=== PATIENT | female | born 1965 | race Caucasian/White ===

== ENCOUNTER → 2018-01-31 17:35 | Outpatient (CLI) | payer OTHER, SELFPAY ==
--- NOTE | 2018-01-31 18:15 | MRI_ITS ---
STUDY: MRI RIGHT ANKLE WITHOUT CONTRAST REASON FOR EXAM: Female, 52 years old. 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 TECHNIQUE: Standardized fat and water weighted pulse sequences were obtained in all 3 orthogonal planes. COMPARISON: None. FINDINGS: There is soft tissue edema visible within the lateral and medial ankle. Normal posterior tibialis tendon. Normal flexor digitorum longus tendon. Normal flexor hallucis longus tendon. Normal peroneus longus and brevis tendons. Normal tibialis anterior tendon. Normal extensor hallucis longus tendon. There is tenosynovitis of the extensor digitorum longus tendons. There is abnormal signal surrounding the extensor digitorum longus tendons suggesting tenosynovitis. Normal Achilles tendon and teno-osseous insertion. Normal plantar fascia. Normal plantar calcaneal tubercles. Normal intrinsic muscles of the rearfoot. Normal distal tibiofibular syndesmotic ligamentous complex. Normal lateral ligamentous complex. Normal subtalar ligaments and sinus tarsi. Normal deltoid ligamentous complexes. Normal tibiotalar articulation. Normal talar dome. Normal subtalar articulations. Normal talonavicular articulation. Normal calcaneocuboid articulation. Normal navicular-cuneiform articulations. MRI/Lower Ext Joint Only (Routine) IMPRESSION: 1. Tenosynovitis of the extensor digitorum lung is tendons. 2. Soft tissue edema. Electronically Signed: Raven Chavez MD at 13:29 EDT , Service support ,
== END ==
PROVIDERS: Family Provider Family Medicine; PCP Family Medicine; Visit Provider Podiatrist
DX: M65.871 Other synovitis and tenosynovitis, right ankle and foot (principal); M76.821 Posterior tibial tendinitis, right leg; G57.01 Lesion of sciatic nerve, right lower limb
CPT/HCPCS: 73721

== ENCOUNTER → 2018-03-25 09:38 | Outpatient (CLI) | payer OTHER, SELFPAY ==
[2018-03-25 11:17] LABS: T4 Total, Thyroxin 8.1 ug/dL (4.8-13.9); Thyroid Stim Hormone (TSH) 2.36 uIU/mL (0.358-3.74)
== END ==
PROVIDERS: Family Provider Family Medicine; PCP Family Medicine; Visit Provider Family Medicine
DX: E03.9 Hypothyroidism, unspecified (principal)
CPT/HCPCS: 36415; 84436; 84443

== ENCOUNTER → 2018-06-22 16:42 | Outpatient (CLI) | payer OTHER, SELFPAY ==
[2018-06-22 17:25] LABS: Absolute Lymphocyte Count 1.76 X10^3/ul (0.83-4.51); Absolute Neutrophil Count 5.3 X10^3/uL (2.0-7.7); Basophil# 0.02 X10^3/uL; Basophil% 0.3 % (0-1); Eosinophil# 0.14 X10^3/uL; Eosinophils% 1.8 % (0-5); Hematocrit 37.8 % (37-47); Hemoglobin 12.5 g/dl (12.0-15.0); Lymphocyte # 1.76 X10^3/ul (4.0); Lymphocyte % 22.1 % (19-41); Mean Corp Hgb Conc 33.1 g/gl (32-36); Mean Corpuscular Volume 90.9 fL (81-99); Mean Platelet Vol. 10.5 fl (6.2-12.0); Monocyte# 0.75 X10^3/uL; Monocyte% 9.4 % (0-10); Neutrophil # 5.28 X10^3/uL (2.7-7.7); Neutrophil % 66.3 % (47-70); Platelet Count 254 K/mm3 (150-450); RBC Distribution Width SD 42.5 fl (35.1-43.9); Red Blood Count 4.16 M/mm3 (4.2-5.4)
[2018-06-22 17:31] LABS: POSITIVE COUNT NO; POSITIVE DIFFERENTIAL NO; POSITIVE MORPHOLOGY NO
[2018-06-22 18:03] LABS: ALB/GLOB Ratio 1.1 RATIO (0.9-2.4); AST(SGOT) 17 U/L (15-37); Alanine Aminotransfer ALT/SGPT 27 U/L (13-56); Alkaline Phosphatase 84 U/L (45-117); Anion Gap 9 (5-15); BUN 19 mg/dL (7-18); Calcium,Total 9.4 mg/dL (8.5-10.1); Chloride 105 mmol/L (98-107); EST Glomerular Filtration Rate 61 mL/min (>60); Est Glom Filt Rate - Afr Amer 74 mL/min (>60); Globulin 3.6 g/dL (2.2-4.2); Glucose 139 mg/dL (74-106); Potassium 3.7 mmol/L (3.5-5.1); Protein, Total 7.6 g/dL (6.4-8.2); Sodium Level 140 mmol/L (136-145)
== END ==
PROVIDERS: Family Provider Family Medicine; PCP Family Medicine; Visit Provider Family Medicine
DX: Z01.818 Encounter for other preprocedural examination (principal)
CPT/HCPCS: 36415; 80053; 85025

== ENCOUNTER 2018-07-07 05:35 | Day surgery (SDC) | payer OTHER, SELFPAY ==
[2018-07-07] VITALS (7 sets, daily range): BP systolic 130–139; BP diastolic 60–96; PULSE 57–77; RESP 14–16; TEMP 35.8–36.3; O2SAT 92–98; BMI 30.4
--- NOTE | 2018-07-07 07:30 | CYST_PTH ---
PATIENT: RISHI TREJO [place] [facility] [id number] AGE/SX: 52/F ROOM: RE07/07/[address]: Dr. Cabrera Hassan DPM : 1965 BED: DIS: 07/07/2018 SPEC #: [id number] RECD: 07/07/18 10:20 STATUS: LUDA KALPANA #: [id number] JOANNA: 07/07/18 07:[address]: Cabrera Hassan DEPT: SURGICAL PATHOLOGY RECD BY: Gary Haque ENTERED: 07/07/18 11:29 SP TYPE: Cyst OTHR DR: Dr. Yoel Herring MD Tissues: CYST Procedures: Surgery Specimen Level III HEADER OPERATION: Debridement, repair, extensor tendons with excision mass/cyst PRE-OP DIAGNOSIS: Right foot ? extensor tendonitis with soft tissue mass, gastrocsoleus equinus TISSUE SUBMITTED: Right ankle cyst MICROSCOPIC DIAGNOSIS Right ankle cyst: Benign cyst, consistent with ganglion cyst. Mature adipose tissue, consistent with lipoma. NABIL:diomedes 07/10/18 COMMENT The fragments of skeletal muscle tissue are also noted in the specimen. MICROSCOPIC DESCRIPTION Slides are reviewed. GROSS DESCRIPTION Received in fixative is one container labeled with the patient's name and designated right ankle cyst. The specimen consists of multiple irregular fragments of rubalcava-pink soft tissue that in aggregate measure 4 x 4 x 1.2 cm. Also present in the specimen container is dark rubalcava soft tissue resembling muscle and measuring 2 x 1.5 x 0.7 cm. Heater Operator Helper sections are submitted in two cassettes. / AM:diomedes 07/07/18 TC:5 CPT: 29486
[2018-07-07] MEDS: Cefazolin 2 GM in 0.9% Normal Saline 100 ML IV (07:37)
[2018-07-07] MEDS: Bupivacaine 0.5% PF 10 ML VIAL (09:08)
--- NOTE | 2018-07-07 09:28 | PCM.DC.POD ---
Discharge Diet: Light diet - advance as tolerated Discharge Activity: May Not Drive Weight Bearing Status: No weight bearing - No weightbearing right foot Keep extremity elevated above heart level: Right Leg - Keep right foot elevated for at least 50 minutes of every hour Call your doctor if your incision/area has: Continuous Slow Oozing, Sudden Increased Bleeding, Foul Smelling Discharge Call your doctor if you observe: Fever of 101 or Higher, Coldness, Increased Pain, Shortness of breath, Chest pain, Increased palpitations (irregular heartbeat), Calf discomfort, Uncontrolled pain Cleanse incision/area with: Do not get Incision Wet, Keep Dressing Clean & Dry Allergies/Adverse Reactions: Allergies hydroxychloroquine sulfate [From Plaquenil] Allergy (Verified 07/07/18 05:50) Rash pregabalin [From Lyrica] Adverse Reaction (Verified 07/07/18 05:50) Nausea/Vom/Diarrhea tramadol HCl [From Ultram] Adverse Reaction (Verified 07/07/18 05:50) Nausea/Vom/Diarrhea Medications to take at Discharge Levothyroxine [Synthroid] 88 mcg PO DAILY 07/04/14 Rivaroxaban [Xarelto] 10 mg PO DAILY #7 tab 07/07/18 The following prescriptions were given: Rivaroxaban [Xarelto] 10 mg PO DAILY #7 tab Primary Care Physician: Yoel Herring MD [Primary Care Provider] - Test Results: Test results from this visit will be discussed in further detail at your follow-up appointment, if applicable. Please Follow Up With: Cabrera Hassan DPM When: within 1 week, sooner if needed
--- NOTE | 2018-07-07 09:33 | OP.PCM_ITS ---
Report of Operation Date of Procedure: 07/07/18 Pre-Operative Diagnosis: Extensor tendinitis w/ cyst/mass, gastrocsoleus equinus right foot/ankle Post-Operative Diagnosis: Same Surgery/Procedure Performed:: Debridement/repair of extensor tendons with excision of mass/cyst; gastrocsoleus recession right foot/ankle Description of Surgical Findings:: Extensor Digitorum Longus tendinosynovitis w/ soft tissue cyst/mass right foot/ ankle, gastrocsoleus equinus, right foot/ankle informatics application analyst: yes - Dr. Jamie Nur Type of Anesthesia:: General Specimen's removed: Excised cyst/mass from right foot/ankle sent to pathology Estimated Blood Loss (mL): 10mL Description of Procedure: Indications: This is a 52 year old female who has continued right foot/ankle pain despite immobilization, foot orthotics, rest, activity modifications, icing , anti-inflammatories, and corticosteroid injection. Pre operative MRI showed significant extensor digitorum longus tenosynovitis and possible ganglion cyst/ mass, she also has significant gastrocsoleus equinus right foot/ankle. She has elected to undergo surgical intervention as noted above. The procedures were reviewed with her, reviewed the rationale of the procedures as well as the possible benefits, risks, goals, expectations, alternative options, and typical healing/post operative recovery course. This was discussed with her in detail, she expressed understanding and agreement, she elected to proceed forward. All of her questions were answered. The consent forms were reviewed with her, and she freely signed them. No guarantees were given nor implied. Operative Procedure: The patient was brought back into the operating room. The patient was placed on the operating table in the supine position. Patient was carefully secured to the operating room table with a safety belt around her waist. A time out was performed and the patient was properly identified and the surgical plan was confirmed. The patient received general anesthesia per the anesthesia team. The patient received 2 grams of intervenous Cefazolin for antibiotic prophylaxis. A well padded pneumatic tourniquet was applied around the patient's right thigh. The right lower extremity was scrubbed, prepped, and draped in the usual aseptic fashion. Attention was directed to the right foot and ankle. There was noted to be gastrocsoleus equinus with -1 degrees of ankle dorsiflexion with the knee extended and <10 degrees of ankle dorsiflexion with the knee flexed. Attention was directed just distal to the medial head of the gastrocnemius muscle belly on the posterior leg. An ~1cm linear skin incision was made using a 15 blade at this level at the medial aspect. Careful blunt dissection was completed down to the gastrocsoleus aponeurosis. A fascial elevator was used and a plane was complete between the subcutaneous tissue and the posterior aspect of the gastrocsoleus aponeurosis, and an ~1cm linear skin incision was made using a 15 blade at the lateral aspect of the leg to create the lateral portal. The fascial elevator was removed. An obturator and slotted cannula were placed through the medial and lateral portals. The obturator was removed and the slot was faced posteriorly. The sural nerve and the small saphenous vein were visualized confirming they were out of the way. The slot was rotated to face anteriorly and the gastrocsoleus aponeurosis was visualized. Using a hook blade the gastrocsoleus aponeurosis was released, being sure not to cut into the soleus muscle belly. The underlying soleus muscle belly was visualized. There was now noted to be +10 degrees of ankle dorsiflexion with knee extended, and greater with the knee flexed. The obturator was placed in the cannula, and they were both removed. The site was flushed out with copious amounts of normal saline solution. The skin was reapproximated using 4-0 Monocryl. Attention was directed to the anterior lateral foot/ankle. A skin incision was made using a 15 scalpel blade over the lateral aspect of extensor digitorum longus tendons. Careful dissection was completed down to the subcutaneous tissue layer to the extensor retinaculum. The extensor retinaculum was incised and reflected. There was noted to be a fluid filled cyst within the sheath of the extensor digitorum longus tendons consistent with a ganglion cyst. The cyst was protruding right up against the superficial peroneal nerve and deep peroneal nerve. The sheath of the extensor digitorum longus tendons was incised and the ganglion cyst was carefully dissected free and was removed. The superficial and deep peroneal nerves were carefully protected and out of the way , they appeared to be healthy and viable. There was noted to be clear gel synovial fluid within the cyst. The excised cyst was sent to pathology for further evaluation. There was also noted to be significant fatty tissue around the extensor digitorum longus tendons and extending laterally to the area of the sinus tarsi. This fatty tissue was also debrided and sent to pathology. The remaining tissues appeared to be healthy and viable. The extensor digitorum longus tendons otherwise were healthy and intact, no with tear noted. The site was flushed out with copious amounts of normal saline solution. The pneumatic tourniquet was deflated and there was immediate return of warm and perfusion to the left lower extremity, with normal CFT to all of the toe and normal temperature present. Total tourniquet time was 46 minutes. Hemostasis was achieved. The extensor retinaculum was reapproximated using 4-0 Vicryl. The subcutaneous tissue was reapproximated using 4-0 Vicryl. The skin was reapproximated using 4-0 Monocryl. A dressing was applied which consisted of Betadine soaked adaptic, 4x4 gauze, kerlix, christiano bandage and a well padded below the knee posterior splint with the foot and ankle in neutral position. The patient tolerated the above procedure well and the anesthesia well with no complications. She was transported from the operating room to the recovery room with vital signs stable and in good condition. Post operative orders were placed. Post operative instructions were given both verbal and written to patient as well as with her who was with her today. No weightbearing right foot, keep right foot elevated for at least 50 minutes of every hour. Keep dressing/splint clean, dry and intact. Vicodin 5/300mg tab 1-2 tabs PO q 6 hours for post operative pain control, as well as Xarelto 10mg PO once a day to help prevent a blood clot was prescribed. Patient to follow up with me in 1 week , sooner if needed. Grafts/Implants Used: None - Complications None
[2018-07-07] MEDS: HYDROcodone Bitartrate/Apap 5/325 Tablet PO (10:35)
== END 2018-07-07 12:45 | disposition home or self-care (01) ==
LOC: SDC 05:36 → AC 05:37
PROVIDERS: Family Provider Family Medicine; PCP Family Medicine; Visit Provider Podiatrist
PROC: (CPT 28805; principal; 2018-07-07 07:15)
DX: M67.471 Ganglion, right ankle and foot (principal); D17.23 Benign lipomatous neoplasm of skin and subcutaneous tissue of right leg; M76.821 Posterior tibial tendinitis, right leg; M24.571 Contracture, right ankle; E03.9 Hypothyroidism, unspecified; E66.9 Obesity, unspecified; Z68.29 Body mass index [BMI] 29.0-29.9, adult; Z79.899 Other long term (current) drug therapy
CPT/HCPCS: 27630; 27665; 27687; 88304; J7120; J2405

== ENCOUNTER → 2018-09-01 07:57 | Outpatient (CLI) | payer OTHER, SELFPAY ==
--- NOTE | 2018-09-01 08:02 | VDLE_ITS ---
Reason For Study: Insufficiency RIGHT LEFT GSV is normal. CFV is compressible, spontaneous, phasic, CFV is compressible, spontaneous, phasic, competent, and demonstrates normal competent and demonstrates normal augmentation. augmentation. FV is compressible, spontaneous, phasic, FV is compressible, spontaneous, phasic, competent and demonstrates normal competent and demonstrates normal augmentation. augmentation. POP V is compressible, spontaneous, phasic, POP V is compressible, spontaneous, phasic, competent and demonstrates normal competent and demonstrates normal augmentation. augmentation. T/P Trunk is compressible. T/P Trunk is compressible. PTV is compressible. PTV is compressible. LT PerV is compressible. RT PerV is compressible. Lt SFJ is Competent Rt SFJ is Competent Lt GSV is Incompetent with reflux greater Rt GSV is Competent than 0.5 sec and a diameter of 0.34cm x 0.40cm in the thigh and 0.15cm x 0.14cm in Rt SSV is Competent. the calf Procedure Exam performed in department. Lt SSV is Competent. A preliminary report was called and/or faxed to Dr. Hassan. Interpretation Summary Deep veins of the lower extremities are bilaterally patent and compressible segmentally. There is no evidence of deep vein thrombosis on either side. Valvular competence appears intact within the proximal deep venous systems bilaterally. The greater saphenous veins appear bilaterally patent and compressible segmentally. Sapheno-femoral junctions are bilaterally competent . The right greater saphenous vein appears segmentally competent. The left greater saphenous vein appears segmentally incompetent. Small saphenous veins are patent and competent bilaterally. Ordering Physician: Cabrera Hassan Referring Physician: Yoel Herring Performed By: Ruth Cunningham, YAWCS, RVT
== END ==
PROVIDERS: Family Provider Family Medicine; PCP Family Medicine; Referring Provider Podiatrist; Visit Provider Podiatrist
DX: I82.401 Acute embolism and thrombosis of unspecified deep veins of right lower extremity (principal); I87.2 Venous insufficiency (chronic) (peripheral)
CPT/HCPCS: 93970

== ENCOUNTER 2018-09-26 10:00 | Outpatient (RCR) | payer OTHER, SELFPAY ==
--- NOTE | 2018-08-10 16:13 | HP.PTEVAL_ITS ---
Patient's Visit Information RISHI TREJO is a 52 year old F referred to Physical Therapy by Cabrera Hassan with a diagnosis of Right s/p gastrocsoleus recession. Date of Evaluation: 08/02/18 Physical Therapist: Cam Wade - Visit Plan Frequency: 2x /Week Duration: 4-6 Weeks Plan: Cont w POC, add in standing balance and LE strengthening ex. - Subjective Subjective: Pt reports to physical therapy following right gastrocsoleus recession (surgery date: 07/07/18) with orders to improve balance/coordination, ROM, and strength/stabilization. Prior to surgery pt reports injuring ankle while camping over a year ago. pt was walking in a stream and recalled hearing a pop and noticing slight discomfort. pain progressed until pt decided to follow up with a physician where she received an MRI indicating need fro a gastrocsoleus recession, debridment of extensor tendons with removal of cyst. Following surgery pt progresses through weight bearing precautions and reported to physical therapy on this date full weight bearing in tennis shoes. pt reports no pain. only complaint was slight numbness and tingling along 5th ray. 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 Pt. is hopeful to reduce symptoms and get back to all recreational and work activities without limitations. - Pain right ankle Pain Intensity (Out of 10): 0 Pain Intensity Range: Unrated Comment: swollen - Objective POSTURE: Pt. has normal posture in stance, no CAM boot this date. PALAPTION: Pt. has normal healing incision no signs of infection. Pt. has 1+ pitting edema throughout lateral ankle and doral portion of foot. NEURO: Pt. has decreased sensation to light touch of lateral foot, rest is normal. Pt. has 2+ achilles and patellar DTR bilaterally. ROM: AROM Right ankle: PF - 0-40, DR - 0-20, Inversion - 0-10, Eversion 0-5. MMT: Right ankle: 5/5 PF, DF, Inversion, Eversion. no pain associated with movements. GAIT: left weight shift during swing phase on the right side. early toe off on the right side - Goals Goal 1:: Pt. to be I with HEP. Goal Time Frame: 4-6 Weeks Goal 2:: Pt. to have increased ankle ROM by 25% in all directions. Goal Time Frame: 4-6 Weeks Goal 3:: Pt. to ambulate without increase in symptoms for unlimited distances. Goal Time Frame: 4-6 Weeks Goal 4:: Pt. to have increased ankle strength by 1/2 grade of all effected musculature. Goal Time Frame: 4-6 Weeks Goal 5:: Pt. to resume all work related activities without increase in symptoms. Goal Time Frame: 4-6 Weeks - Rehabilitation Potential Physical Therapy Diagnosis: pt presents symptoms consistent with s/p gastrocsoleus recession with subsequent hyppombility, weakness, increased pain and difficulty with walking. Pt. would benefit from PT to address above limitations progressing back to all functional and work related activities. Rehabilitation Potential: Excellent - Anticipated Interventions Patient/Client Instruction: Educate patient on: Condition, Plan of Care, Risk Factors, Benefits of Fitness Program For the Purpose of:: To foster healthy habits, To improve decision making, To facilitate caregiver knowledge, To improve self management, To prevent re-injury , To improve ability to perform tasks related to life management, To improve tolerance to ADL's Therapeutic Exercise to Include: Strength training, Power training, Endurance training, Balance training, Coordination, Agility training, Body mechanics, Gait and locomotor training, Passive ROM, Active ROM For the Purpose of:: To decrease pain, To decrease swelling/inflammation, To increase ROM, To improve muscle performance and motor function, To improve gait and locomotor functions, To increase flexibility/ROM, To improve balance Manual Therapy Techniques to Include: Mobilization, Passive ROM, Functional dry needling For the Purpose of:: To decrease pain, To decrease swelling/inflammation, To increase ROM, To improve nutrient delivery to tissue IF ES: Yes Other electric stimulation: Yes Cryotherapy (ice pack, ice massage): Yes Ultrasound (thermal/non thermal): Yes For the Purpose of:: To decrease pain, To decrease swelling/inflammation, To increase ROM Thank you for the opportunity to evaluate your patient. For Medicare and Medicare HMO plans, please review the plan of care and approve it. It will need to be FAXED BACK to us at [phone] for Medicare purposes. Please let me know if there are questions or concerns regarding this plan of care. Physician Signature: Date:
--- NOTE | 2018-09-06 06:01 | HP.PTREVAL_ITS ---
Cabrera Hassan, It has been my pleasure to treat RISHI TREJO over the last 10 visits for Right s/p gastrocsoleus recession. Please see the progress note below for an update on the physical therapy plan of care! Subjective: Pt. has improved edema this date. I talked to physician, vascular study was negative. Physician would like us to again work on reducing edema and slowly introduce exercises as tolerated. PT. reports having 1/10 pain pre treatment, she did not do much over weekend in attemt to reduce edema. She did wear compression stocking over weekend. Objective/Function: Pt. had no pitting edema post PT. Pt. continues to have increased edema after activities. She has proper strength in her ankle 5/5 throu ghout, but does not have a good tolerance to standing activities as she continues to have increased edema. She is back to work wearing a compression sleeve. Pt. would benefit form continued PT to increase her tolerance to activities and provide a good environment to heal. Plan Plan: POC extended x2 for 2-3 weeks to progress back to all functional mobility, reduce edema and increase tolerance to all work related activities. Cont. to work on edema control and slowly introduce exercises and activities as tolerated with no increase in edema. Goals Goal 1:: Pt. to be I with HEP. Goal Time Frame: 4-6 Weeks Goal Progress: Goal Met Goal 2:: Pt. to have increased ankle ROM by 25% in all directions. Goal Time Frame: 4-6 Weeks Goal Progress: Goal Met Goal 3:: Pt. to ambulate without increase in symptoms for unlimited distances. Goal Time Frame: 4-6 Weeks Goal Progress: Progressing Goal 4:: Pt. to have increased ankle strength by 1/2 grade of all effected musculature. Goal Time Frame: 4-6 Weeks Goal Progress: Goal Met Goal 5:: Pt. to resume all work related activities without increase in symptoms. Goal Time Frame: 4-6 Weeks Goal Progress: Progressing Anticipated Interventions Patient/Client Instruction: Educate patient on: Condition, Plan of Care, Risk Factors, Benefits of Fitness Program For the Purpose of:: To foster healthy habits, To improve decision making, To facilitate caregiver knowledge, To improve self management, To prevent re- injury, To improve ability to perform tasks related to life management, To improve tolerance to ADL's Therapeutic Exercise to Include: Strength training, Power training, Endurance training, Balance training, Coordination, Agility training, Body mechanics, Gait and locomotor training, Passive ROM, Active ROM For the Purpose of:: To decrease pain, To decrease swelling/inflammation, To increase ROM, To improve muscle performance and motor function, To improve gait and locomotor functions, To increase flexibility/ROM, To improve balance Manual Therapy Techniques to Include: Mobilization, Passive ROM, Functional dry needling For the Purpose of:: To decrease pain, To decrease swelling/inflammation, To increase ROM, To improve nutrient delivery to tissue IF ES: Yes Other electric stimulation: Yes Cryotherapy (ice pack, ice massage): Yes Ultrasound (thermal/non thermal): Yes For the Purpose of:: To decrease pain, To decrease swelling/inflammation, To increase ROM Please do not hesitate to contact me at [phone] by phone or if you have questions or concerns regarding this new plan of care! Sincerely, Cam Wade
--- NOTE | 2019-02-23 09:25 | HP.PTDCNRP_ITS ---
HP - Discharge Summary (1) - Patient Information RISHI TREJO was seen in my office for initial evaluation on 08/02/18. The following Plan of Care was established for this patient: Initial Frequency: 2x /Week Initial Duration: 4-6 Weeks - Anticipated Interventions Patient/Client Instruction: Educate patient on: Condition, Plan of Care, Risk Factors, Benefits of Fitness Program For the Purpose of:: To foster healthy habits, To improve decision making, To facilitate caregiver knowledge, To improve self management, To prevent re- injury, To improve ability to perform tasks related to life management, To improve tolerance to ADL's Therapeutic Exercise to Include: Strength training, Power training, Endurance training, Balance training, Coordination, Agility training, Body mechanics, Gait and locomotor training, Passive ROM, Active ROM For the Purpose of:: To decrease pain, To decrease swelling/inflammation, To increase ROM, To improve muscle performance and motor function, To improve gait and locomotor functions, To increase flexibility/ROM, To improve balance Manual Therapy Techniques to Include: Mobilization, Passive ROM, Functional dry needling For the Purpose of:: To decrease pain, To decrease swelling/inflammation, To increase ROM, To improve nutrient delivery to tissue IF ES: Yes Other electric stimulation: Yes Cryotherapy (ice pack, ice massage): Yes Ultrasound (thermal/non thermal): Yes For the Purpose of:: To decrease pain, To decrease swelling/inflammation, To increase ROM This patient was last seen in our office 09/26/18. Pertinent comments regarding their Physical therapy will appear below: Pt. was treated after her ankle surgery. Pt. continued to have increased edema, but was back to all of her work activities. Pt. has not been seen in several months adn will be DC from PT at this point in time. At this point I will be discontinuing this patient from physical therapy. I would be happy to see this patient again in the future if found appropriate by the physician. Thank you! MARTHA ReevesT
== END 2018-09-26 19:00 | disposition home or self-care (01) ==
LOC: PT 10:00
PROVIDERS: Family Provider Family Medicine; PCP Family Medicine; Visit Provider Podiatrist
DX: Z98.890 Other specified postprocedural states (principal)
CPT/HCPCS: 97016; 97110; 97140; 97161; 97530

== ENCOUNTER → 2019-01-25 15:37 | Outpatient (CLI) | payer OTHER, SELFPAY ==
--- NOTE | 2019-01-25 15:47 | MRI_ITS ---
STUDY: MRI RIGHT ANKLE WITHOUT CONTRAST REASON FOR EXAM: Female, 53 years old. Pain. Ganglion cyst. TECHNIQUE: Standardized fat and water weighted pulse sequences were obtained in all 3 orthogonal planes. COMPARISON: None. FINDINGS: Normal subcutis adipose space. Normal posterior tibialis tendon. Normal flexor digitorum longus tendon. Normal flexor hallucis longus tendon. Normal peroneus longus and brevis tendons. Normal tibialis anterior tendon. Normal extensor hallucis longus tendon. Normal extensor digitorum longus tendons. Normal Achilles tendon and teno-osseous insertion. Normal plantar fascia. Normal plantar calcaneal tubercles. Normal intrinsic muscles of the rearfoot. Normal distal tibiofibular syndesmotic ligamentous complex. Normal lateral ligamentous complex. Normal subtalar ligaments and sinus tarsi. Normal deltoid ligamentous complexes. Normal plantar calcaneonavicular (spring) ligament. Normal tibiotalar articulation. Normal talar dome. Normal subtalar articulations. Normal talonavicular articulation. Normal calcaneocuboid articulation. Normal navicular-cuneiform articulations. MRI/Lower Ext Joint Only (Routine) IMPRESSION: Diffuse subcutaneous soft tissue edema. Otherwise unremarkable MRI of the ankle. Electronically Signed: Lizandro Prajapati, at 10:01 EST Tel , Service support ,
== END ==
PROVIDERS: Family Provider Family Medicine; PCP Family Medicine; Referring Provider Podiatrist; Visit Provider Podiatrist
DX: M67.471 Ganglion, right ankle and foot (principal)
CPT/HCPCS: 73721

== ENCOUNTER → 2019-01-31 07:58 | Outpatient (CLI) | payer OTHER, SELFPAY ==
--- NOTE | 2019-01-31 12:54 | NEURO ---
NCS and/or EMG Patient Report Ordering Doctor: Cabrera Hassan DATE OF SERVICE: 01/31/19 Shelley Ascencio is a 53-year-old female presents for electrodiagnostic testing of the right lower limb. She reports persistent numbness and tingling in the lateral aspect of the right foot. Electrodiagnostic findings: Right peroneal motor nerve demonstrates normal distal latency with reduced amplitude and normal conduction velocity. Normal right tibial motor response. Normal tibial and peroneal F-wave. Prolonged right sural latency is noted. Needle EMG testing reveals 1+ fibrillations in the right peroneus longus, right gastrocnemius and right lumbosacral paraspinals. Motor unit action potentials were normal amplitude and duration. Next Elective diagnostic assessment: This is an abnormal study in the right lower limb 1. Electrodiagnostic findings demonstrate an acute right sided S1 radiculopathy. Consider clinical correlation with lumbar spine imaging. 2. 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 3. 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 There is no evidence of conduction at the fibular head. If there are any further questions, please do not hesitate to contact me.
== END ==
PROVIDERS: Family Provider Family Medicine; PCP Family Medicine; Referring Provider Podiatrist; Visit Provider Podiatrist
DX: G57.80 Other specified mononeuropathies of unspecified lower limb (principal); G62.9 Polyneuropathy, unspecified
CPT/HCPCS: 95886; 95910

== ENCOUNTER → 2019-02-28 17:00 | Outpatient (CLI) | payer OTHER, SELFPAY ==
[2018-07-07 05:51] VITALS: BMI 30.4
[2019-02-28 18:39] LABS: Anion Gap 5 (5-15); BUN 18 mg/dL (7-18); BUN/Creat Ratio 19.8 RATIO (10-20); Calcium,Total 9.4 mg/dL (8.5-10.1); Chloride 105 mmol/L (98-107); Creatinine, Serum 0.91 mg/dL (0.55-1.02); EST Glomerular Filtration Rate 68 mL/min (>60); Est Glom Filt Rate - Afr Amer 83 mL/min (>60); Glucose 136 mg/dL (74-106); Potassium 4.4 mmol/L (3.5-5.1); Sodium Level 140 mmol/L (136-145); Thyroid Stim Hormone (TSH) 1.16 uIU/mL (0.358-3.74)
== END ==
PROVIDERS: Family Provider Family Medicine; PCP Family Medicine; Referring Provider Family Medicine; Visit Provider Family Medicine
DX: E03.9 Hypothyroidism, unspecified (principal); R60.9 Edema, unspecified
CPT/HCPCS: 36415; 80048; 84443

== ENCOUNTER → 2019-03-28 15:42 | Outpatient (CLI) | payer OTHER, SELFPAY ==
--- NOTE | 2019-03-28 15:45 | MRI_ITS ---
STUDY: MRI LUMBAR SPINE WITHOUT CONTRAST REASON FOR EXAM: Female, 53 years old. Low back pain with right leg radiculopathy TECHNIQUE: Standardized fat and water weighted pulse sequences were obtained in the sagittal and axial planes. COMPARISON: MRI lumbar spine 09/13/2013 FINDINGS: T12-L1: Normal endplates. Normal disc height, hydration and morphology. Normal bilateral facet joints. Normal central canal and bilateral lateral recesses. Normal bilateral intervertebral neural foramina. Normal lumbar lordosis. There is no substantial scoliosis. Normal conus medullaris there is stable multilevel Schmorl's nodes L1-2: Normal endplates. Normal disc height, hydration and morphology. Mild facet spondylosis. Normal central canal and bilateral lateral recesses. Normal bilateral intervertebral neural foramina. L2-3: There is mild posterior bulging annulus. There is moderate facet degenerative changes and ligamentous hypertrophy. There is mild central canal narrowing. There is mild left lateral foraminal stenosis. There is no right foraminal stenosis L3-4: There is left posterolateral bulging annulus with increased T2 signal within the peripheral disc margin. There is ligamentous hypertrophy. There are moderate facet degenerative changes. There is slight worsening mild to moderate central canal stenosis. There is no significant right foraminal stenosis. There is moderate left lateral foraminal stenosis. L4-5: There is enlargement of posterior bulging annulus. There is a small right paracentral disc protrusion. There is significant ligamentous hypertrophy moderate facet degenerative changes. There is slight dorsal moderate to severe central canal stenosis. Mild bilateral foraminal narrowing. L5-S1: Slight enlargement of diffuse posterior bulging annulus. There are moderate facet degenerative changes. There is slight worsening mild central canal narrowing. There is no right foraminal stenosis. There is mild left foraminal stenosis Normal visualized sacral ala. Normal visualized paraspinous soft tissue structures. MRI/Spine Lumbar (Routine) IMPRESSION: Mild interval worsening of multilevel spondylosis, mildly enlarging posterior bulging annuli, small disc protrusions, left posterior-lateral annular tear at L3-L4, there is multifactorial multilevel central canal and foraminal stenoses which also demonstrate mild worsening Electronically Signed: Erick Mandujano, at 0:06 EDT Tel , Service support ,
== END ==
PROVIDERS: Family Provider Family Medicine; PCP Family Medicine; Referring Provider Psychiatry & Neurology Neurology; Visit Provider Psychiatry & Neurology Neurology
DX: M54.16 Radiculopathy, lumbar region (principal)
CPT/HCPCS: 72148

== ENCOUNTER → 2019-04-19 06:33 | Outpatient (CLI) | payer OTHER, SELFPAY ==
[2019-04-19 08:15] LABS: Anion Gap 10 (5-15); BUN 14 mg/dL (7-18); BUN/Creat Ratio 14.3 RATIO (10-20); Calcium,Total 9.3 mg/dL (8.5-10.1); Chloride 105 mmol/L (98-107); Creatinine, Serum 0.98 mg/dL (0.55-1.02); EST Glomerular Filtration Rate 63 mL/min (>60); Est Glom Filt Rate - Afr Amer 76 mL/min (>60); Glucose 145 mg/dL (74-106); Potassium 3.9 mmol/L (3.5-5.1); Sodium Level 142 mmol/L (136-145)
== END ==
PROVIDERS: Family Provider Family Medicine; PCP Family Medicine; Referring Provider Family Medicine; Visit Provider Family Medicine
DX: R60.9 Edema, unspecified (principal)
CPT/HCPCS: 36415; 80048

== ENCOUNTER → 2019-05-08 06:50 | Outpatient (CLI) | payer OTHER, SELFPAY ==
[2018-07-07 05:51] VITALS: BMI 30.4
[2019-05-08 07:58] LABS: Hemoglobin A1c 7.2 % (4.2-6.3)
== END ==
PROVIDERS: Family Provider Family Medicine; PCP Family Medicine; Referring Provider Family Medicine; Visit Provider Family Medicine
DX: R73.01 Impaired fasting glucose (principal)
CPT/HCPCS: 36415; 83036

== ENCOUNTER → 2019-06-21 11:48 | Outpatient (CLI) | payer OTHER, SELFPAY ==
[2018-07-07 05:51] VITALS: BMI 30.4
--- NOTE | 2019-06-21 11:51 | RAD_ITS ---
STUDY: X-RAY - RIGHT KNEE REASON FOR EXAM: Pain. TECHNIQUE: 4 view(s) of the knee. COMPARISON: None. FINDINGS: Normal visualized distal femur. Normal visualized proximal tibia and fibula. Normal proximal tibiofibular articulation. Normal medial femorotibial compartment. Normal lateral femorotibial compartment. Normal patellofemoral articulation. The soft tissue structures of the knee are unremarkable. There is a small soft tissue calcification at the posterior aspect of the mid fibular diaphysis. RAD/Knee 4 or More Views IMPRESSION: Normal x-ray examination of the right knee. Electronically Signed: Yung Noel MD at 12:57 EDT Tel , Service support ,
== END ==
PROVIDERS: Family Provider Family Medicine; PCP Family Medicine; Referring Provider Family Medicine; Visit Provider Family Medicine
DX: M25.561 Pain in right knee (principal)
CPT/HCPCS: 73564

== ENCOUNTER → 2019-07-06 15:45 | Outpatient (CLI) | payer OTHER, SELFPAY ==
--- NOTE | 2019-07-06 15:56 | BI_ITS ---
MAMMOGRAPHY - BILATERAL SCREENING 3-D TOMOSYNTHESIS REASON FOR EXAM: Female, 53 years old. Bilateral Screening 3-D tomosynthesis PERTINENT HISTORY: No significant family history. TECHNIQUE: 2-D mammograms and 3-D Tomosynthesis of the breast (s) were performed. CAD was performed. COMPARISON: 11/17/2017, 10/26/2015, 10/21/2014 FINDINGS: The breast composition is composed of scattered fibroglandular density. Scattered benign calcifications are seen. No dense spiculated masses or suspicious microcalcifications are identified. No architectural distortion is identified. There is no skin thickening or retraction. There has been no significant change since the prior study. BI/SCREEN MAMM (CAD) W/VÍCTOR BILAT IMPRESSION: No mammographic signs of malignancy. Routine yearly mammograms recommended. ASSESSMENT CATEGORY: BIRADS Category 2: Benign. A letter regarding these results will be sent to the patient by the facility within 30 days. FOLLOW UP RECOMMENDATION: Yearly follow up mammogram recommended. (A) Approximately 10% of breast cancers are not detected by mammography. A normal mammogram should not delay biopsy of a clinically suspicious abnormality. Electronically Signed: aTurus Green MD at 15:44 EDT Tel [phone], Service support ,
== END ==
PROVIDERS: Family Provider Family Medicine; PCP Family Medicine; Referring Provider Family Medicine; Visit Provider Family Medicine
DX: Z12.31 Encounter for screening mammogram for malignant neoplasm of breast (principal)
CPT/HCPCS: 77063; 77067

== ENCOUNTER → 2019-07-27 12:48 | Outpatient (CLI) | payer OTHER, SELFPAY ==
--- NOTE | 2019-07-27 13:00 | MRI_ITS ---
STUDY: MRI RIGHT KNEE REASON FOR EXAM: Right knee pain for 4 weeks, no specific injury. TECHNIQUE: Standardized fat and water weighted pulse sequences were obtained in all 3 orthogonal planes. COMPARISON: Radiographs 06/21/2019. FINDINGS: There is a small radial tear at the root of the posterior horn of the medial meniscus (T2 coronal images 10-12). Normal hyaline cartilage of the medial femorotibial compartment. Normal medial femoral condyle and tibial plateau. Normal medial collateral ligamentous complex (MCL). Normal distal semimembranosus, gracilis and semitendinosus tendons. Normal lateral meniscus. Normal hyaline cartilage of the lateral femorotibial compartment. Normal lateral femoral condyle and tibial plateau. There is subchondral cystic change of the proximal tibia at the proximal tibiofibular articulation. Normal lateral collateral (fibular) ligament. Normal popliteus tendon. Normal biceps femoris tendon. There is a proximal anterior cruciate ligament cyst (T2 sagittal image 12). Normal posterior cruciate ligament (PCL). Normal congruent patellofemoral articulation. There is mild arthrosis of the patellofemoral compartment with mild partial-thickness chondral loss of the inferior apex of the femoral trochlea (T2 sagittal image 12). Normal medial and lateral patellar retinaculum. Normal visualized quadriceps tendon. Normal patellar tendon. Normal Hoffa's fat pad. There is a moderate-sized joint effusion. There is a popliteal cyst measuring 5.4 cm in length with extravasation of fluid (T2 sagittal images 16-20). There is a very small enchondroma in the distal femoral metaphysis (T2 axial image 20) measuring 0.3 cm in AP dimension. MRI/Lower Ext Joint Only (Routine) IMPRESSION: Small radial tear at the root of the posterior horn of the medial meniscus. Mild patellofemoral arthrosis. Joint effusion. Popliteal cyst with extravasation of fluid. Very small enchondroma in the distal femur. Electronically Signed: Yung Noel MD at 14:18 EDT Tel , Service support ,
== END ==
PROVIDERS: Family Provider Family Medicine; PCP Family Medicine; Referring Provider Family Medicine; Visit Provider Family Medicine
DX: S83.241A Other tear of medial meniscus, current injury, right knee, initial encounter (principal); X58.XXXA Exposure to other specified factors, initial encounter; M17.11 Unilateral primary osteoarthritis, right knee
CPT/HCPCS: 73721

== ENCOUNTER → 2019-08-03 13:17 | Outpatient (CLI) | payer OTHER, SELFPAY ==
[2019-07-31 08:49] VITALS: BMI 30.4
[2019-08-03 15:19] LABS: Anion Gap 7 (5-15); BUN 23 mg/dL (7-18); BUN/Creat Ratio 25.6 RATIO (10-20); Calcium,Total 9.4 mg/dL (8.5-10.1); Chloride 103 mmol/L (98-107); EST Glomerular Filtration Rate 69 mL/min (>60); Est Glom Filt Rate - Afr Amer 83 mL/min (>60); Glucose 115 mg/dL (74-106); Potassium 3.9 mmol/L (3.5-5.1); Sodium Level 142 mmol/L (136-145)
== END ==
PROVIDERS: Family Provider Family Medicine; PCP Family Medicine; Referring Provider Family Medicine; Visit Provider Family Medicine
DX: R25.2 Cramp and spasm (principal)
CPT/HCPCS: 36415; 80048

== ENCOUNTER 2019-08-20 16:00 | Outpatient (RCR) | payer OTHER, SELFPAY ==
--- NOTE | 2019-07-20 08:03 | HP.PTEVAL ---
Patient's Visit Information RISHI TREJO is a 53 year old F referred to Physical Therapy by Alf Loo MD with a diagnosis of LUMBAGO WITH SCIATICA. Date of Evaluation: 07/19/19 Physical Therapist: Alf Decker PT, Cert MDT, OCS - Visit Plan Frequency: 2x /Week Duration: 4 Weeks Plan: PATIENT HAS H/O LAST YEAR S/P ACHILLES LENGTHENING. MOST RECENTLY INJURIED RIGHT KNEE PLANS TO SEE MD. PT INTERVENTION TREE EX'S,ANR NERVE STRETCHES(FLOSSING),DLS,POSTURAL EX'S,PROGRESS TO STABILIZATION - Subjective Findings: This 53 y/o female presenst to physical therapy with lumbago with sciatica. This patent developed radicular symptoms right parathesia/tingling lower leg after undegoing achilles tendon lengthening Agust 17 . Pateint also injuried right knee popped and gaved with severe pain saw family DR Franchesca Colvin lower leg is senstaive to touch. Patient had ENG nerving testing lower leg. Patient paratghesia/tingling lower intermittant. Aggraveting job demand housework tasks with extended standing. Alleviating factors napraxon. Patient coughing/sneezing-. Bowel/bladder -. Sleepin okay at night. Patient has low back pain for pain years. Patient symptoms affects ADL'S and housework tasks. Pateint condition affects QOL.Patient had MRI showed BULDGING disc /stenosis. VOCATION: [employer] [facility]. SOCAIL: - Pain Right Foot Pain Intensity (Out of 10): 2 Pain Intensity Range: 10 Bilateral Back Pain Intensity (Out of 10): 2 Pain Intensity Range: 10 - Objective POSTURE: mild foward posture. GAIT: reciprocal pattern antalgic gait side due to kne pain. PALPATION: right lower leg senstaive too touch. SYMMTRICAL: align. FLEXABLITY: hams WNL. MMT: quads/hams/hip 4/5,ankle 4/5. LUMBAR ROM: flexion WNL,extension min loss,side glide min loss - Special Tests L/S Slump test left side: Negative L/S Slump test right side: Negative L/S Left Straight Leg Raise: Negative L/S Right Straight Leg Raise: Negative L/S Left Femoral Nerve Tension: Negative L/S Right Femoral Nerve Tension: Negative Lumbar Standing: Flexion - Mechanical Response: No effect Lumbar Standing: Flexion - Symptoms During Testing: No effect Lumbar Standing: Flexion - Symptoms After Testing: No effect Lumbar Standing: Extension - Mechanical Response: No effect Lumbar Standing: Extension - Symptoms During Testing: No effect Lumbar Standing: Extension - Symptoms After Testing: No effect Lumbar Standing: Right Side Glides - Mechanical Response: No effect Lumbar Standing: Right Side [place] - Symptoms During Testing: No effect Lumbar Standing: Right Side [place] - Symptoms After Testing: No effect Lumbar Standing: Left Side [place] - Mechanical Response: No effect Lumbar Standing: Left Side [place] - Symptoms During Testing: No effect Lumbar Standing: Left Side [place] - Symptoms After Testing: No effect Lumbar Lying: Flexion - Mechanical Response: No effect Lumbar Lying: Flexion - Symptoms During Testing: No effect Lumbar Lying: Flexion - Symptoms After Testing: No effect Lumbar Lying: Extension - Mechanical Response: No effect Lumbar Lying: Extension - Symptoms During Testing: Decreases Lumbar Lying: Extension - Symptoms After Testing: Better Comments:: BACK PAIN,PARATHESIA /TINGLING SOME BETTER - Goals Goal 1:: Patient to be Independant with HEP. Goal Time Frame: 4-6 Weeks Goal 2:: Independant with posture/body mechanics Goal Time Frame: 4-6 Weeks Goal 3:: Patient to decrease symptoms below knee by 50% or greater to improve function and ADL'S Goal Time Frame: 4-6 Weeks Goal 4:: Patient improve back owestry score by 5 points > to improve QOLL. Goal Time Frame: 4-6 Weeks Goal 5:: Patient be d/c to prophalaxis. Goal Time Frame: 4-6 Weeks - Rehabilitation Potential Physical Therapy Diagnosis: This pateint has h/o of underging achilles tendon lengthening,then noticed parathesia below knee along recently injuried right knee . Patient symptoms where min changed with movement test,correction of posture but MRI did show right protrusion L4-5 . Thus benifit frm skilled PT Rehabilitation Potential: Good - Anticipated Interventions Patient/Client Instruction: Educate patient on: Condition, Plan of Care For the Purpose of:: To decrease pain, To increase ROM, To improve muscle performance and motor function, To improve ability to perform ADL's, To increase tolerance to activity/condition/position, To improve ability of physical actions for home/community/work/leisure, To improve health of tissue, To decrease soft tissue restriction, To increase flexibility/ROM, To reduce risk of recurrence, To improve ability to perform tasks related to life management Therapeutic Exercise to Include: Strength training, Body mechanics, Postural training, Flexibilty training, Dynamic Lumbar Stabilization, Tree Exercises For the Purpose of:: To decrease pain, To increase ROM, To improve muscle performance and motor function, To increase tolerance to activity/condition/position, To improve ability of physical actions for home/community/work/leisure, To improve health of tissue, To decrease soft tissue restriction, To increase flexibility/ROM, To improve ability to perform tasks related to life management TENS: Yes IF ES: Yes Cryotherapy (ice pack, ice massage): Yes Thermo therapy (hot pack): Yes Ultrasound (thermal/non thermal): Yes For the Purpose of:: To decrease pain, To increase ROM, To improve nutrient delivery to tissue, To increase oxygenation perfusion, To improve health of tissue, To decrease soft tissue restriction Thank you for the opportunity to evaluate your patient. For Medicare and Medicare HMO plans, please review the plan of care and approve it. It will need to be FAXED BACK to us at [phone] for Medicare purposes. For Medicare only, by signing this I certify the plan of care. Please let me know if there are questions or concerns regarding this plan of care. Physician Signature: Date:
--- NOTE | 2019-08-23 09:38 | HP.PTDCNRP_ITS ---
HP - Discharge Summary (1) - Patient Information RISHI TREJO was seen in my office for initial evaluation on 07/19/19. The following Plan of Care was established for this patient: Initial Frequency: 2x /Week Initial Duration: 4 Weeks - Anticipated Interventions Patient/Client Instruction: Educate patient on: Condition, Plan of Care For the Purpose of:: To decrease pain, To increase ROM, To improve muscle perfo rmance and motor function, To improve ability to perform ADL's, To increase tolerance to activity/condition/position, To improve ability of physical actions for home/community/work/leisure, To improve health of tissue, To decrease soft tissue restriction, To increase flexibility/ROM, To reduce risk of recurrence, To improve ability to perform tasks related to life management Therapeutic Exercise to Include: Strength training, Body mechanics, Postural training, Flexibilty training, Dynamic Lumbar Stabilization, Leyla Exercises For the Purpose of:: To decrease pain, To increase ROM, To improve muscle performance and motor function, To increase tolerance to activity/condition/position, To improve ability of physical actions for home/community/work/leisure, To improve health of tissue, To decrease soft tissue restriction, To increase flexibility/ROM, To improve ability to perform tasks related to life management TENS: Yes IF ES: Yes Cryotherapy (ice pack, ice massage): Yes Thermo therapy (hot pack): Yes Ultrasound (thermal/non thermal): Yes For the Purpose of:: To decrease pain, To increase ROM, To improve nutrient delivery to tissue, To increase oxygenation perfusion, To improve health of tissue, To decrease soft tissue restriction This patient was last seen in our office . Pertinent comments regarding their Physical therapy will appear below: Patient seen for PT but too much knee pain,thus cx appointments. Patient seen for PT for cervical radiculopathy. At this point I will be discontinuing this patient from physical therapy. I would be happy to see this patient again in the future if found appropriate by the physician. Thank you! Alf Decker, PT, Cert MDT, OCS
== END 2019-08-20 19:00 | disposition home or self-care (01) ==
LOC: PT 16:00
PROVIDERS: Family Provider Family Medicine; PCP Family Medicine; Referring Provider Psychiatry & Neurology Neurology; Visit Provider Psychiatry & Neurology Neurology
DX: M54.40 Lumbago with sciatica, unspecified side (principal)
CPT/HCPCS: 97110; 97161

== ENCOUNTER 2019-08-29 10:41 | Day surgery (SDC) | payer OTHER, SELFPAY ==
[2019-07-31 08:49] VITALS: BMI 30.4
[2019-08-29] VITALS (9 sets, daily range): BP systolic 136–151; BP diastolic 65–102; PULSE 69–84; RESP 15–16; TEMP 36.1–36.6; O2SAT 93–98; BMI 29.0
[2019-08-29] MEDS: Lactated Ringers 1,000 ML 100 ML IV ×2 (11:07→15:21)
[2019-08-29] MEDS: Cefazolin 2 GM in 0.9% Normal Saline 100 ML IV (13:23)
--- NOTE | 2019-08-29 13:37 | HP.PCM_ITS ---
History and Physical I have re-examined the patient. There are no clinical changes since date of exam. Intake Vital Signs 07/31/19 Body Mass Index (BMI) 30.4 Intake Visit Reasons: right knee Allergies hydroxychloroquine sulfate [From Plaquenil] Allergy (Verified 07/07/18 05:50) Rash pregabalin [From Lyrica] Adverse Reaction (Verified 07/07/18 05:50) Nausea/Vom/Diarrhea tramadol HCl [From Ultram] Adverse Reaction (Verified 07/07/18 05:50) Nausea/Vom/Diarrhea Medications Levothyroxine [Synthroid] 88 mcg PO DAILY 07/04/14 [History Confirmed 07/31/19] doxepin 100 mg capsule 100 mg PO QHS 07/30/19 [History Confirmed 07/31/19] furosemide 20 mg tablet 20 mg PO DAILY 07/30/19 [History Confirmed 07/31/19] metformin 500 mg tablet 500 mg PO BID 07/30/19 [History Confirmed 07/31/19] naproxen sodium 220 mg tablet 220 mg PO BID 07/30/19 [History Confirmed 07/31/19] PFSH Social History (Updated 07/31/19 @ 09:51 by Josette Taylor DO) Smoking Status: Never smoker HPI right knee: Details: Parts of this documentation were recorded by a scribe, this documentation accurately reflects the service provided and the decisions made by me, Josette Taylor DO 07/31/19 0807. RISHI TREJO is a 53 year old F here today for right knee pain. She states she was walking from the hospital and she had a pop and instant pain over her anterior and posterior knee about 3 weeks ago. Patient then saw her PCP Dr. Dietrich and he then ordered x-rays and an MRI of her knee. Patient is having pain over her posterior knee. Does have painful popping, clicking and locking. Does have some painful giving out. Does feel like something is blocking her from full extension and flexion. Denies numbness, tingling or other associated symptoms. Has been using a knee sleeve, icing and elevating. Patient has been taking Aleve. Patient also has right foot numbness from her past surgeries and her lumbar radiculopathy, she is seeing Dr Loo soon. She has had a recent EMG/NC. ROS Const Reports system reviewed and no additional complaints, except as docu Eyes Reports system reviewed and no additional complaints, except as docu ENT Reports system reviewed and no additional complaints, except as docu Card Reports system reviewed and no additional complaints, except as docu Resp Reports system reviewed and no additional complaints, except as docu GI Reports system reviewed and no additional complaints, except as docu Musc Reports system reviewed and no additional complaints, except as docu, Reports as per HPI Skin/Breast Reports system reviewed and no additional complaints, except as docu Neuro Yes system reviewed and no additional complaints, except as docu Psych Reports system reviewed and no additional complaints, except as docu Endo Reports system reviewed and no additional complaints, except as docu Gigi/Lymph Reports system reviewed and no additional complaints, except as docu Aller/Immun Reports system reviewed and no additional complaints, except as docu Ortho Exam Right Knee Contralateral Normal: Yes Homans Sign: No Knee ROM: Yes ROM-Extension -20 to 0, No ROM-Flexion 0-140 Examination: Yes Pain with flexion no r/r/w no abd pain no audible bruits Assessment & Plan Problems 1. Acute medial meniscus tear of right knee, initial encounter S83.589A Plan Reviewed the injury and MRI and educated on the anatomy of the knee. Explained that she has a radial tear and that the MRI cant tell us if the tear is movable which will also decide the surgical method of repair. Will leave as much meniscus as possible for improved health of the knee. If the meniscus is repaired she will be ttwb for 6 wks. Reviewed possibility of seeing Dr Garcia regarding her right lateral lower leg numbness for possible spn block. Reviewed the pre-operative plans with the patient. Risks and benefits of the procedure were fully explained, including but not limited to infection, neuro vascular injury, continued pain, arthritis, stiffness, need for further surgery, re-injury, DVT, PE, general risks of anesthesia, and loss of limb or life. The patient understands all the risks and does wish to proceed with written consent. Follow up two week post or sooner if pain, swelling, numbness or associated symptoms, or concerns develop. All questions answered. Patient in agreement of plan. Orders Referrals: Pain Management R20.0 Coding Level of Care Code Off vis,est,level 4 Diagnoses Acute medial meniscus tear of right knee, initial encounter S83.339A ??Encounter type: initial encounter
[2019-08-29] MEDS: Epinephrine (1 mg/ml) 1 MG/ML VIAL (14:00)
--- NOTE | 2019-08-29 14:14 | DCINST_ITS ---
Discharge Diet: No Restrictions - ttwb right leg, rom in brace 0-40 degrees, locked in extension during ambulation and at night follow up on tuesday with leonor for dressing change and brace adjustment, santo stockings, call with concerns, ankle pumps/ice/elevate toes above nose Discharge Activity: May Not Drive May shower in (days): 1 Ice area for (Minutes): 20 - Every hour while awake. Weight Bearing Status: Weight bearing as tolerated Keep extremity elevated above heart level: Operative Extremity Call your doctor if your incision/area has: Continuous Slow Oozing, Sudden Increased Bleeding, Increased Pain/ Swelling, Increased Redness, Foul Smelling Discharge Call your doctor if you observe: Fever of 101 or Higher, Coldness, Increased Pain, Numbness or Tingling, Change in Color, Calf discomfort Allergies/Adverse Reactions: Allergies hydroxychloroquine sulfate [From Plaquenil] Allergy (Verified 08/29/19 10:57) Rash pregabalin [From Lyrica] Adverse Reaction (Verified 08/29/19 10:57) Nausea/Vom/Diarrhea tramadol HCl [From Ultram] Adverse Reaction (Verified 08/29/19 10:57) Nausea/Vom/Diarrhea Medications to take at Discharge Levothyroxine [Synthroid] 88 mcg PO DAILY 07/04/14 doxepin 100 mg capsule 100 mg PO QHS 07/30/19 furosemide 20 mg tablet 20 mg PO DAILY 07/30/19 metformin 500 mg tablet 500 mg PO DAILY 07/30/19 Naproxen [Naprosyn] 500 mg PO DAILY 08/22/19 Primary Care Physician: Yoel Herring MD [Primary Care Provider] - Test Results: Test results from this visit will be discussed in further detail at your follow- up appointment, if applicable. Please Follow Up With: Josette Taylor, DO - [phone]
--- NOTE | 2019-08-29 14:15 | PCM.OPRPT ---
Report of Operation Date of Procedure: 08/29/19 Pre-Operative Diagnosis: right knee medial meniscus root tear, oa, synovitis Post-Operative Diagnosis: same Surgery/Procedure Performed:: sark, pmm, med men repair, synovectomy, patella chondroplasty embossing machine tender: Jean Mueller Type of Anesthesia:: General Anesthesiologist: Benny Dolan Estimated Blood Loss (mL): minimal Fluids Replaced: 900cc lr Description of Procedure: Preop note Patient is a 53-year-old female who had a sustained a twisting injury to her right knee pain instability and MRI confirms posterior horn root tear. Risk benefits alternatives surgery discussed with patient. Risks including but not limited to blood loss, blood clot, infection, neurovascular, failure procedure, loss of life and loss of limb. Patient also has an MRI confirming some arthritis and some synovitis in the chondromalacia and this was discussed about adjusting at the time of surgery as well. Operative note Examined preoperative area of right knee was marked. Patient brought to the operating placed supine on the operating room table. Sign, anesthesia, antibiotics were administered. The right leg was prepped and draped in usual sterile fashion with a tourniquet around her upper thigh. All bony problems well-padded SCDs placed on her contralateral limb. We then marked our portal placement for our anterior medial anterior lateral portal placements. The right leg was elevated exsanguinated and triggers rates her pressure of 2 250 torr. Timeout was performed. Then using 11 blade creator anterior lateral portal preop. We then began our diagnostic arthroscopy. The created an anterior medial portal under direct visualization. She had difficult time getting into the joint and she extensive synovitis throughout her anteromedial and anterolateral joint. This was resected with a combination with a shaver. We then were able to visualize the medial meniscus there is a posterior root tear that was torn off of the capsule. We then used a rasp to rasp the area as well and then placed to reverse curved FasT-Fix 360 devices and then reinserted the probe we had good repair. Please note that the attachment into the bone was intact it was attached it was detached from the capsule itself. The ACL PCL were present within the notch. The lateral meniscus was intact and stable probing the lateral femoral condyle was intact and stable probing. She had a grade 3 changes on her medial aspect of her lateral tibial plateau and she had grade 2 fibrillated changes on the central aspect. She also had lateral and grade 3 changes of her medial femoral condyle medial tibial plateau this is gently debrided back with a shaver. We then moved to the patellofemoral joint. She had a central defect that was grade 2 fibrillated changes in the central area of the trochlea. She had corresponding fibrillated changes on the inferior pole of the patella. This was gently debrided back with a shaver. We then irrigated the knee with copious muscle sterile saline. We closed the portals with interrupted no nylon stitches. Sterile dressings were applied. 10 cc of 1/4% bupivacaine without epi were injected into the portals only. Tourniquet was deflated for a total working time of 32 minutes. Patient tied procedure well no [facility] recovery room in stable condition. Please note that preoperatively started that in the operating room we did also apply her right brace knee. Postoperative note Discussed with Pharmacy has prescription Next Call with increased pain numbness tingling or further issues arise Follow-up on Tuesday with Balbir for dressing change and brace adjustment Dragon disclaimer This note was generated with [employer] dictation software. It may contain incorrect words, spelling, and punctuation that were not noted in checking the note before signing.
[2019-08-29] MEDS: Bupiv/Epi 0.5% Mpf 30 ML Vial (14:16)
[2019-08-29] MEDS: Mupirocin Ointment 22gm Tube 1 APPLIC (14:16)
[2019-08-29 14:40] LABS: Bedside Glucose 114 mg/dL (70-110)
== END 2019-08-29 17:55 | disposition home or self-care (01) ==
LOC: SDC 10:42 → AC 10:44
PROVIDERS: Family Provider Family Medicine; PCP Family Medicine; Referring Provider Orthopaedic Surgery; Visit Provider Orthopaedic Surgery
PROC: (CPT 29870; principal; 2019-08-29 11:55)
DX: S83.241A Other tear of medial meniscus, current injury, right knee, initial encounter (principal); M17.11 Unilateral primary osteoarthritis, right knee; M65.9 Synovitis and tenosynovitis, unspecified; M22.41 Chondromalacia patellae, right knee; X58.XXXA Exposure to other specified factors, initial encounter; Y93.01 Activity, walking, marching and hiking; Y92.9 Unspecified place or not applicable; G47.30 Sleep apnea, unspecified; E06.9 Thyroiditis, unspecified; M06.9 Rheumatoid arthritis, unspecified; M54.16 Radiculopathy, lumbar region; Z78.0 Asymptomatic menopausal state; Z79.899 Other long term (current) drug therapy
CPT/HCPCS: 01400; 29876; 29881; 82962; J7120; A4216; J2405

== ENCOUNTER 2019-10-22 16:00 | Outpatient (RCR) | payer OTHER, SELFPAY ==
[2019-09-11 09:10] VITALS: BMI 29.0
--- NOTE | 2019-09-19 10:30 | HP.PTEVAL_ITS ---
Patient's Visit Information RISHI TREJO is a 53 year old F referred to Physical Therapy by Josette Taylor DO with a diagnosis of S/P RIGHT KNEE MEDIAL MENISCUS REPAIR. Date of Evaluation: 09/19/19 Physical Therapist: Alf Decker PT, Cert MDT, OCS - Visit Plan Frequency: 2x /Week Duration: 8WEEKS Plan: S/P RIGHT KNEE ARTHROSCPIC MENISCUS REPAIR ON 08/29/19 WITH PWB RLE WITH CRUTCHES TROM BRACE LOCKED IN EXTENSION WITH GAIT,OKAY TO UNLOCK 70 DEGREES SEATED - Subjective Findings: This 53 y/o female presents to physical therapy with s/p right knee meniscus repair on 08/29/[address] Taylor at [facility] outpatient . Patient d/c with crutches with NWB then return to DR in 1 week okay for PWB ,then saw DR Mcclellan on 09/11/19 then okay for PWB RLE with TROM brace locked in extension okay to unlock seated 70 degrees. Patient denies parathesia/tingling. Patient has limiations with ADLS' and functional activities at home. Patient 1 story home with 3 steps with rail. Pateint is unable to return to work and unable to Drive. Tenative RTW after Thanksgi. Patient walking at work felt a pop in knee,thus had MRI showed meniscus tear . SOCIAL: . VOACTION: Insurance at [facility] - Objective POSTURE: RIGHT KNEE LOCKED IN EXTENSION. GAIT: Ambulates with PWB RLE knee brace locked with cruches. EDEMA: joint line 45 cm right. AROM: 0-70 supine knee flexion. MMT: quads/hams 3+/5,hip flexion 4-/5,ankle 5/5. BALANCE: GOOD- with crutches. STAIRS: one step at a time with crutches. PATELLA MOBILITY: mild restricted - Goals Goal 1:: Independant with HEP Goal Time Frame: 6-8 Weeks Goal 2:: Patient to improve AROM knee 0-125 degrees supine flexion to improve stairs Goal Time Frame: 6-8 Weeks Goal 3:: Patient to increases strength of quads/hams 4/5 to improve function Goal Time Frame: 6-8 Weeks Goal 4:: Patient to ambulate with normal [place] community Goal Time Frame: 6-8 Weeks Goal 5:: Patient to improve LFES score by 10-12 points or > to improve QOL. Goal Time Frame: 6-8 Weeks - Rehabilitation Potential Physical Therapy Diagnosis: This patient underwent meniscus repair with PWB and TROM brace locked in extension okay 70 degrees with flexion seated ,with deficits with strength,ROM ,function and gait to RTW and ADLS' Rehabilitation Potential: Good - Anticipated Interventions Patient/Client Instruction: Educate patient on: Condition, Plan of Care For the Purpose of:: To decrease pain, To increase ROM, To improve muscle performance and motor function, To improve ability to perform ADL's, To increase tolerance to activity/condition/position, To improve ability of physical actions for home/community/work/leisure, To improve health of tissue, To decrease soft tissue restriction, To increase flexibility/ROM, To improve endurance, To improve balance, To improve ability to perform tasks related to life management Therapeutic Exercise to Include: Strength training, Endurance training, Balance training, Flexibilty training, Gait and locomotor training, Passive ROM, Active ROM Comment: HIP/KNNE For the Purpose of:: To decrease pain, To increase ROM, To improve muscle performance and motor function, To improve ability to perform ADL's, To increase tolerance to activity/condition/position, To improve ability of physical actions for home/community/work/leisure, To improve gait and locomotor functions, To increase flexibility/ROM, To improve endurance, To improve balance TENS: Yes IF ES: Yes Thermo therapy (hot pack): Yes Vasopneumatic device: Yes For the Purpose of:: To decrease pain, To increase ROM, To improve health of tissue, To decrease soft tissue restriction Thank you for the opportunity to evaluate your patient. For Medicare and Medicare HMO plans, please review the plan of care and approve it. It will need to be FAXED BACK to us at [phone] for Medicare purposes. For Medicare only, by signing this I certify the plan of care. Please let me know if there are questions or concerns regarding this plan of care. Physician Signature: Date:
--- NOTE | 2019-09-19 15:35 | HP.PTEVAL ---
Patient's Visit Information RISHI TREJO is a 53 year old F referred to Physical Therapy by Josette Taylor DO with a diagnosis of S/P RIGHT KNEE MEDIAL MENISCUS REPAIR. Date of Evaluation: 09/19/19 Physical Therapist: Alf Decker, PT, Cert MDT, OCS - Visit Plan Frequency: 2x /Week Duration: 8WEEKS Plan: S/P RIGHT KNEE ARTHROSCPIC MENISCUS REPAIR ON 08/29/19 WITH PWB RLE WITH CRUTCHES TROM BRACE LOCKED IN EXTENSION WITH GAIT,OKAY TO UNLOCK 70 DEGREES SEATED FOR 4WEEKS. *SEE GUIDELINES FOR MENISCUS REPAIR*. PT INTERVENTIONS WITH ROM TO 70 DEGREES ,4 WAYS SLR ,PRE'S HIP/QUAD/HAMS ,FLEXABLITY CALF/HAMS,PROGRESS TO ROM, WB ACTIVITIES AFTER 4WEEKS WHEN PATIENT SEES - Subjective Findings: This 53 y/o female presents to physical therapy with s/p right knee meniscus repair on 08/29/[address] Taylor at [facility] outpatient . Patient d/c with crutches with NWB then return to DR in 1 week okay for PWB ,then saw DR Mcclellan on 09/11/19 then okay for PWB RLE with TROM brace locked in extension okay to unlock seated 70 degrees. Patient denies parathesia/tingling. Patient has limiations with ADLS' and functional activities at home. Patient 1 story home with 3 steps with rail. Pateint is unable to return to work and unable to Drive. Tenative RTW after Thanksgiving. Patient walking at work felt a pop in knee,thus had MRI showed meniscus tear . SOCIAL: . VOACTION: Insurance at [facility] - Objective POSTURE: RIGHT KNEE LOCKED IN EXTENSION. GAIT: Ambulates with PWB RLE knee brace locked with cruches. EDEMA: joint line 45 cm right. AROM: 0-70 supine knee flexion. MMT: quads/hams 3+/5,hip flexion 4-/5,ankle 5/5. BALANCE: GOOD- with crutches. STAIRS: one step at a time with crutches. PATELLA MOBILITY: mild restricted - Goals Goal 1:: Independant with HEP Goal Time Frame: 6-8 Weeks Goal 2:: Patient to improve AROM knee 0-125 degrees supine flexion to improve stairs Goal Time Frame: 6-8 Weeks Goal 3:: Patient to increases strength of quads/hams 4/5 to improve function Goal Time Frame: 6-8 Weeks Goal 4:: Patient to ambulate with normal [place] community Goal Time Frame: 6-8 Weeks Goal 5:: Patient to improve LFES score by 10-12 points or > to improve QOL. Goal Time Frame: 6-8 Weeks - Rehabilitation Potential Physical Therapy Diagnosis: This patient underwent meniscus repair with PWB and TROM brace locked in extension okay 70 degrees with flexion seated ,with deficits with strength,ROM ,function and gait to RTW and ADLS' Rehabilitation Potential: Good - Anticipated Interventions Patient/Client Instruction: Educate patient on: Condition, Plan of Care For the Purpose of:: To decrease pain, To increase ROM, To improve muscle performance and motor function, To improve ability to perform ADL's, To increase tolerance to activity/condition/position, To improve ability of physical actions for home/community/work/leisure, To improve health of tissue, To decrease soft tissue restriction, To increase flexibility/ROM, To improve endurance, To improve balance, To improve ability to perform tasks related to life management Therapeutic Exercise to Include: Strength training, Endurance training, Balance training, Flexibilty training, Gait and locomotor training, Passive ROM, Active ROM Comment: HIP/KNNE For the Purpose of:: To decrease pain, To increase ROM, To improve muscle performance and motor function, To improve ability to perform ADL's, To increase tolerance to activity/condition/position, To improve ability of physical actions for home/community/work/leisure, To improve gait and locomotor functions, To increase flexibility/ROM, To improve endurance, To improve balance TENS: Yes IF ES: Yes Thermo therapy (hot pack): Yes Vasopneumatic device: Yes For the Purpose of:: To decrease pain, To increase ROM, To improve health of tissue, To decrease soft tissue restriction Thank you for the opportunity to evaluate your patient. For Medicare and Medicare HMO plans, please review the plan of care and approve it. It will need to be FAXED BACK to us at [phone] for Medicare purposes. For Medicare only, by signing this I certify the plan of care. Please let me know if there are questions or concerns regarding this plan of care. Physician Signature: Date:
--- NOTE | 2020-02-08 09:31 | HP.PT.NRP ---
RISHI TREJO was seen in my office for initial evaluation on 09/19/19. The following Plan of Care was established for this patient: Initial Frequency: 2x /Week Initial Duration: 8WEEKS Patient/Client Instruction: Educate patient on: Condition, Plan of Care For the Purpose of:: To decrease pain, To increase ROM, To improve muscle performance and motor function, To improve ability to perform ADL's, To increase tolerance to activity/condition/position, To improve ability of physical actions for home/community/work/leisure, To improve health of tissue, To decrease soft tissue restriction, To increase flexibility/ROM, To improve endurance, To improve balance, To improve ability to perform tasks related to life management Therapeutic Exercise to Include: Strength training, Endurance training, Balance training, Flexibilty training, Gait and locomotor training, Passive ROM, Active ROM For the Purpose of:: To decrease pain, To increase ROM, To improve muscle performance and motor function, To improve ability to perform ADL's, To increase tolerance to activity/condition/position, To improve ability of physical actions for home/community/work/leisure, To improve gait and locomotor functions, To increase flexibility/ROM, To improve endurance, To improve balance TENS: Yes IF ES: Yes Thermo therapy (hot pack): Yes Vasopneumatic device: Yes For the Purpose of:: To decrease pain, To increase ROM, To improve health of tissue, To decrease soft tissue restriction This patient was last seen in our office 10/22/19. Pertinent comments regarding their Physical therapy will appear below: Patient PT focused in progression WB ,ROM and PRE'S . Did well after s/p knee surgery. At this point I will be discontinuing this patient from physical therapy. I would be happy to see this patient again in the future if found appropriate by the physician. Thank you! Alf Decker, PT, Cert MDT, OCS
== END 2019-10-22 19:00 | disposition home or self-care (01) ==
LOC: PT 16:00
PROVIDERS: Family Provider Family Medicine; PCP Family Medicine; Referring Provider Orthopaedic Surgery; Visit Provider Orthopaedic Surgery
DX: Z98.890 Other specified postprocedural states (principal)
CPT/HCPCS: 97110; 97162

== ENCOUNTER → 2019-11-29 18:18 | Outpatient (CLI) | payer OTHER, SELFPAY ==
[2019-11-29 15:42] VITALS: BMI 29.0
[2019-11-29 18:20] LABS: Pathologist Comment May follow
[2019-11-29 19:42] LABS: Appearance /Synovial Fluid Sl hazy (CLEAR); CRYSTALS, BODY FLUID See PATH REV; Color / Synovial Fluid Yellow (Pale Yellow); Source / Synovial Fluid RT.KNEE; Source- Body Fluid SYNOVIAL
[2019-11-29 20:51] LABS: AUTO B FLUID DILUENT BKGD CT WBC <0.1 RBC <0.01 (W<.1,R<.01)
[2019-11-29 20:52] LABS: Synovial Fld Mononuclear WBC # 0.286 10^3/ul; Synovial Fld Mononuclear WBC % 90.5 %; Synovial Fld Polynuclear WBC % 9.5 %
[2019-11-29 21:01] LABS: RBC /Synovial Fluid 9 /mm3 (0)
[2019-11-29 21:17] LABS: Lymph 11 %; Monocyte /Synovial Fluid 87 %; Neutrophil 2 % (0-25)
[2019-11-29 21:18] LABS: Body Fluid QC Type(s) BF2Q,BF3Q
[2019-11-30 14:15] LABS: Pathologist Review Reviewed
[2019-12-01 15:20] LABS: GLUCOSE, SYNOVIAL FLUID 148 mg/dL (.); PROTEIN, SYNOVIAL FLUID 4.2 g/dL (.)
== END ==
PROVIDERS: Family Provider Family Medicine; PCP Family Medicine; Visit Provider Orthopaedic Surgery
DX: M25.461 Effusion, right knee (principal)
CPT/HCPCS: 82945; 84157; 87070; 87075; 87205; 89050; 89051; 89060

== ENCOUNTER → 2020-01-17 14:28 | Outpatient (CLI) | payer OTHER, SELFPAY ==
[2020-01-17 14:20] VITALS: BMI 29.0
--- NOTE | 2020-01-17 14:29 | RAD_ITS ---
STUDY: X-RAY - RIGHT KNEE REASON FOR EXAM: Continued pain, surgery in August. TECHNIQUE: 4 view(s) of the knee. COMPARISON: Radiographs 06/21/2019. FINDINGS: Normal visualized distal femur. Normal visualized proximal tibia and fibula. Normal proximal tibiofibular articulation. Normal medial femorotibial compartment. Normal lateral femorotibial compartment. Normal patellofemoral articulation. The soft tissue structures of the knee are unremarkable. There is a small soft tissue calcification posterior to the mid fibular diaphysis as on the prior study. RAD/Knee 4 or More Views IMPRESSION: Unremarkable x-ray examination of the right knee. Electronically Signed: Yung Noel MD at 15:26 EST Tel , Service support ,
== END ==
PROVIDERS: PCP Family Medicine; Referring Provider Orthopaedic Surgery; Visit Provider Orthopaedic Surgery
DX: M25.561 Pain in right knee (principal)
CPT/HCPCS: 73564

== ENCOUNTER → 2020-01-25 17:01 | Outpatient (CLI) | payer OTHER, SELFPAY ==
[2020-01-17 14:20] VITALS: BMI 29.0
--- NOTE | 2020-01-25 17:02 | MRI_ITS ---
STUDY: MRI RIGHT KNEE REASON FOR EXAM: Female, 54 years old. Knee pain and swelling TECHNIQUE: Standardized fat and water weighted pulse sequences were obtained in all 3 orthogonal planes. COMPARISON: X-ray 01/17/2020 FINDINGS: 2 cm trizonal flap tear of the posterior body and posterior horn of the medial meniscus extending to the inferior surface. There is diffuse, less than 50% thickness articular cartilage loss of the medial femorotibial compartment. Normal medial femoral condyle and tibial plateau. Associated medial capsulitis. Normal medial collateral ligamentous complex (MCL). Normal distal semimembranosus, gracilis and semitendinosus tendons. Normal lateral meniscus. Normal hyaline cartilage of the lateral femorotibial compartment. Normal lateral femoral condyle and tibial plateau. Normal proximal tibiofibular articulation. Normal lateral collateral (fibular) ligament. Normal popliteus tendon. Normal biceps femoris tendon. Normal anterior cruciate ligament (ACL). Normal posterior cruciate ligament (PCL). Shallow trochlear groove with lateral subluxation of patella and edema superolateral Hoffa''s fat pad consistent with patellofemoral maltracking. 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 Normal medial and lateral patellar retinaculum. Normal quadriceps tendon. Normal patellar tendon. Normal Hoffa''s fat pad. There is a moderate volume joint effusion. There is a Evans''s cyst. Mild prepatellar soft tissue swelling. The soft tissues are unremarkable. The otherwise visualized osseous structures are unremarkable. MRI/Lower Ext Joint Only (Routine) IMPRESSION: 1. 2 cm trizonal flap tear of the posterior body and posterior horn of the medial meniscus extending to inferior surface with mild medial compartment chondromalacia and medial capsulitis. 2. 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 3. Moderate joint effusion with a Evans''s cyst. Electronically Signed: Hong Masters MD at 7:42 EST Tel , Service support ,
== END ==
PROVIDERS: PCP Family Medicine; Referring Provider Orthopaedic Surgery; Visit Provider Orthopaedic Surgery
DX: S83.241S Other tear of medial meniscus, current injury, right knee, sequela (principal)
CPT/HCPCS: 73721

== ENCOUNTER 2020-03-26 05:58 | Day surgery (SDC) | payer OTHER, SELFPAY ==
[2020-03-04 11:00] VITALS: BMI 29.0
[2020-03-26] VITALS (7 sets, daily range): BP systolic 130–153; BP diastolic 70–81; PULSE 72–85; RESP 16; TEMP 36.3–37; O2SAT 95–100; BMI 31.0
[2020-03-26 06:55] LABS: Bedside Glucose 139 mg/dL (70-110)
[2020-03-26] MEDS: Lactated Ringers 1,000 ML 100 ML IV (06:59)
[2020-03-26] MEDS: Epinephrine (1 mg/ml) 1 MG/ML VIAL (07:07)
--- NOTE | 2020-03-26 07:17 | HP.PCM_ITS ---
History and Physical Date of Admission: 03/26/20 I have re-examined the patient. There are no clinical changes since date of exam. Intake Vital Signs 03/04/20 BMI 29.0 Intake Visit Reasons: Knee pain Allergies hydroxychloroquine sulfate [From Plaquenil] Allergy (Verified 12/17/19 15:28) Rash pregabalin [From Lyrica] Adverse Reaction (Verified 12/17/19 15:28) Nausea/Vom/Diarrhea tramadol HCl [From Ultram] Adverse Reaction (Verified 12/17/19 15:28) Nausea/Vom/Diarrhea Medications Levothyroxine [Synthroid] 88 mcg PO DAILY 07/04/14 [History Confirmed 03/04/20] furosemide 20 mg tablet 20 mg PO DAILY 07/30/19 [History Confirmed 03/04/20] metformin 500 mg tablet 500 mg PO DAILY 07/30/19 [History Confirmed 03/04/20] PFSH Surgical History (Updated 09/11/19 @ 09:10 by Trang Enamorado) S/P right knee arthroscopy (Acute) Social History (Updated 03/04/20 @ 12:[address] Josette Taylor DO) Smoking Status: Never smoker HPI Knee pain: Details: Parts of this documentation were recorded by a scribe, this documentation accurately reflects the service provided and the decisions made by me, Dr. Josette Taylor DO 03/04/20 1048. RISHI TREJO is a 54 year old F here today for f/u on right knee. She has been having increased pain with walking and stairs, complains of medial pain and swelling that increases with compression wrap. She has tightness with flexion and can actively flex to over 100 degrees which she states is actually an improvement to the last week. Denies numbness, tingling or other associated symptoms. She has been using ice and extra strength tylenol. She does use the brace prn but it is often too swollen to use. Her last injection was 11/29/2019. Ortho Exam Right Knee Skin/Wound: Yes CDI, Yes swelling Contralateral Normal: Yes Homans Sign: No 2+: Effusion Knee ROM: Yes ROM-Extension -20 to 0, No ROM-Flexion 0-140 Examination: Yes Med jt line tenderness, Yes Pain with flexion Office Procedures Kenalog 40 mg/mL suspension for injection (triamcinolone acetonide) 80 mg intra- articular ONCE Injections Yes Knee Right Details: Obtained consent for injection. Under sterile conditions, aspirated 16cc of clear yellow fluid and injected the patients right knee with a 10cc cocktail of 8cc bupivacaine and 2cc kenalog. The patient tolerated the injection well without any noted complication. Patient should call our office if redness develops, pain worsens or if they have any concerns. Office Meds Ny Performing Provider: Josette Taylor DO Administered by: Josette Taylor DO on 03/04/20 10:59 Dose Route Admin Location Lot Number Expiration Date NDC Occupational Therapy Assistant 80 mg intra-articular right knee [id number] 01/19/21 6609-1596-41 [place] Assessment & Plan 1. Chronic pain of right knee M25.561; G89.29 Plan Explained that today we can do an aspiration with injection for pain control and when we are able to operate safely she will be placed back on the surgery schedule. discussed Discussed signs and symptoms to watch for. Discussed increased pain over the next 3 days watch for any signs of infection. No submersion for 24 hours Follow up when seeing operative pts, or sooner if pain, swelling, numbness or associated symptoms, or concerns develop. All questions answered. Patient in agreement of plan. Reviewed the pre-operative plans with the patient. Risks and benefits of the procedure were fully explained, including but not limited to infection, neurovascular injury, continued pain, arthritis, stiffness, need for further surgery, re-injury, DVT, PE, general risks of anesthesia, and loss of limb or life. The patient understands all the risks and does wish to proceed with wr itten consen for left knee rathrosocpy repair as indicated. Orders Orders: Kenalog Injection Today 2. Effusion of right knee M25.461 Orders Orders: Kenalog Injection Today Plan Detail Other Orders Orders: Kenalog Injection Today S83.249A Coding Level of Care Code Attention Pavithra Diagnoses Chronic pain of right knee M25.561; G89.29 ??Chronicity: chronic ??Laterality: right Effusion of right knee M25.461 Additional Codes shanker out.knee ([id number]) Essential Procedure Criteria Procedure Essential: Yes Criteria Note: On 02/05/2020 the [facility] ([facility]) Public Order signed by [facility] Director Trang Redding M.D., regarding the Management of Non- Essential Surgeries and Procedures for the purpose of preserving Personal Protective Equipment (PPE) and critical hospital capacity and resources within [place] went into effect as of 02/06/2020 at 5:00PM. According to the [facility] Public Order: This action will remain in full force and effect until the State of Emergency declared by the Governor no longer exists or the Director of the [facility] rescinds or modifies this Order.. This [facility] order stated all non-essential or elective surgeries and procedures that utilize PPE should be delayed unless there is undue risk to the current or future health of a patient. After reviewing the aforementioned [facility] Public Order and the patients clinical case, I have determined that the scheduled procedure meets the criteria to go forward. Risk to Patient if Procedure Delayed: Presence of severe symptoms causing an inability to perform ADL's
[2020-03-26] MEDS: Cefazolin 2 GM in 0.9% Normal Saline 100 ML IV (07:23)
[2020-03-26] MEDS: Mupirocin Ointment 22gm Tube 1 APPLIC (08:00)
[2020-03-26] MEDS: Bupiv/Epi 0.25% 30 ML Vial (08:08)
[2020-03-26 08:41] LABS: Bedside Glucose 116 mg/dL (70-110)
--- NOTE | 2020-03-26 09:06 | PCM.DC.ORTHO ---
Discharge Diet: No Restrictions - right leg- ice, elevate, ankle pumps; may wbat, change dressings in 5 days and apply bandaids to incision sites, call with calf pain, or other concerns; follow up in 2 weeks Discharge Activity: May Not Drive May shower in (days): 1 Ice area for (Minutes): 20 - Every hour while awake. Weight Bearing Status: Weight bearing as tolerated Keep extremity elevated above heart level: Operative Extremity Call your doctor if your incision/area has: Continuous Slow Oozing, Sudden Increased Bleeding, Increased Pain/ Swelling, Increased Redness, Foul Smelling Discharge Call your doctor if you observe: Fever of 101 or Higher, Coldness, Increased Pain, Numbness or Tingling, Change in Color, Calf discomfort Allergies/Adverse Reactions: Allergies hydroxychloroquine sulfate [From Plaquenil] Allergy (Verified 03/26/20 06:31) Rash pregabalin [From Lyrica] Adverse Reaction (Verified 03/26/20 06:31) Nausea/Vom/Diarrhea tramadol HCl [From Ultram] Adverse Reaction (Verified 03/26/20 06:31) Nausea/Vom/Diarrhea Medications to take at Discharge Levothyroxine [Synthroid] 88 mcg PO DAILY 07/04/14 furosemide 20 mg tablet 20 mg PO DAILY 07/30/19 metformin 500 mg tablet 500 mg PO DAILY 07/30/19 Ondansetron [Zofran] 8 mg PO Q8H PRN PRN #20 tab 03/26/20 Oxycodone HCl/Acetaminophen [Percocet 5/325] 1 - 2 tab PO Q6H PRN PRN 5 Days #20 tab 03/26/20 The following prescriptions were given: Oxycodone HCl/Acetaminophen [Percocet 5/325] 1 - 2 tab PO Q6H PRN PRN 5 Days #20 tab PRN Reason: Pain Transmission Status: Pending to [facility] Ondansetron [Zofran] 8 mg PO Q8H PRN PRN #20 tab PRN Reason: Nausea Transmission Status: Pending to [facility] Primary Care Physician: Yoel Herring MD [Primary Care Provider] - Test Results: Test results from this visit will be discussed in further detail at your follow-up appointment, if applicable. Please Follow Up With: Josette Taylor, DO - [phone]
--- NOTE | 2020-03-26 09:07 | PCM.OPRPT ---
Report of Operation Date of Procedure: 03/26/20 Pre-Operative Diagnosis: right knee medial meniscus tear, synvovitis, osteoarthritis Post-Operative Diagnosis: same Surgery/Procedure Performed:: sark, pmm, extensive synovectomy, mfc chondroplasty Type of Anesthesia:: General Anesthesiologist: Benny Dolan Estimated Blood Loss (mL): min Fluids Replaced: 600cc lr Description of Procedure: Preop note Patient is a 54-year-old male female with continued right knee pain recalcitrant to nonoperative treatment after her last knee scope was done she has continued pain after a twisting injury. Repeat MRI confirms that she has a new meniscal medial meniscus tear as well as some synovitis. Risk benefits and alternatives surgery discussed with patient. Risk include but not limited to blood loss, blood clot, infection, neurovascular, failure procedure, loss of life and loss of limb. We also discussed COVID risk. Patient is aware like proceed with right knee arthroscopy repair as indicated Operative note Patient seen and examined preoperative holding area. Right knee was marked. Patient brought to the operating placed supine on the operating table. Signed, anesthesia, antibiotics were administered right leg was prepped and draped usual sterile fashion with tourniquet around her upper thigh. All bony prominences well-padded and SCDs placed on her contralateral limb. We marked out our incisions for her right for anterior lateral anteromedial portal placement right leg with an elevated single knee and tourniquet was raised her pressure of 250 torr. Timeout was performed. We then use an 11 blade to create anterior lateral portal with difficulty getting into the suprapatellar pouch to the extensive synovitis and scarring. We then moved to the medial joint line we created an anterior medial portal under direct visualization. We then used a shaver to stay back to extensive synovitis and scar tissue that she had formed anteromedial anterolateral and suprapatellar pouch was extending proximally as well. We then were able to visualize her medial joint line better we inserted probed she had a posterior horn as well as a mid body acute medial meniscus tear we used a basket to trim the tear back we then used a shaver to trim back any loose pieces we then re-probed the meniscus and it was stable. The ACL and PCL were present within the notch. Patient had some grade 3 eburnated changes one by one showed about 3 lesions of her medial femoral condyle only had a little bit of loose cartilage patient was gently debrided. To grade 2 fibrillated changes throughout her medial tibial plateau with a one by one eburnated [id number] just medial to her lateral aspect the lateral meniscus was intact and stable probing. There again there was extensive synovitis which we resected with a shaver. We irrigated the knee with copious muscle sterile saline. Tourniquet deflated for total working time of 25 minutes. Portals were closed with interrupted 4-0 nylon stitches sterile dressings were applied. Patient taught procedure well no complications transferred recovery room in stable condition. Postoperative Weight-bear as tolerated leg We will call with results Follow-up in 2 weeks Prescriptions at pharmacy We will give this note was generated with [employer] software. It may contain incorrect words, spelling, and punctuation that were not noted in checking the note before signing. Pictures at the postop visit in 2 weeks
== END 2020-03-26 10:50 | disposition home or self-care (01) ==
LOC: SDC 05:58 → AC 05:59
PROVIDERS: PCP Family Medicine; Referring Provider Orthopaedic Surgery; Visit Provider Orthopaedic Surgery
PROC: (CPT 29882; principal; 2020-03-26 07:10)
DX: S83.241A Other tear of medial meniscus, current injury, right knee, initial encounter (principal); X50.1XXA Overexertion from prolonged static or awkward postures, initial encounter; M17.11 Unilateral primary osteoarthritis, right knee; Z79.899 Other long term (current) drug therapy; Z79.84 Long term (current) use of oral hypoglycemic drugs; G89.29 Other chronic pain; E07.9 Disorder of thyroid, unspecified; E11.9 Type 2 diabetes mellitus without complications; M06.9 Rheumatoid arthritis, unspecified
CPT/HCPCS: 29881; 82962; J7120; J2405

== ENCOUNTER 2020-04-29 17:00 | Outpatient (RCR) | payer OTHER, SELFPAY ==
[2020-04-08 09:15] VITALS: BMI 31.0
--- NOTE | 2020-04-09 11:01 | HP.PTEVAL_ITS ---
Patient's Visit Information RISHI RTEJO is a 54 year old F referred to Physical Therapy by Dr. Josette Taylor DO with a diagnosis of R knee pain, meniscal tear, s/p meniscectomy 03/26. Date of Evaluation: 04/09/20 Physical Therapist: Gerson Lockhart, DPT, OCS, CSCS - Visit Plan Frequency: 3x /Week Duration: 4-6 Weeks Plan: 3x/week for 2-4 to start for. ROM and scar massage R knee. Strength taking care of soreness R LE. gait and functional progression to tolerance. ES and ice as needed. - Subjective R knee arthroscopic surgery two weeks ago on the 03/26. Torn meniscus shaved off by Claudia. Had similar surgery in August on R knee which was a repair. That one went well but this was a different tear. Insidous onset. Snce surgery still has pain on medial knee constant since this past weekend, not sure why. Pain currently 3/10 and has been up to 8/10 at times. Sleep is interrupted a little intermittently especially with rolling. No exercises except AP. Has been FWBAT since surgery adn used crutches for two days. Still limps. 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 Basic ADLS are going OK at home, hard to stand for lengths of time. Enjoys walking and camping and hiking and is unable to do those currently. Has 3 steps at home and doing them with L LE. - Pain R knee medial Pain Intensity (Out of 10): 3 Pain Intensity Range: 3, 8 - Objective R antalgia in gait but I ambulation without AD 3/10 pain normal for her. Trasnfers with UE I. Steps prefers to use L but can ascend with R, unable to descend with R. Pivotting is slow and hesitant. R knee aROM 0-115 adn L knee is 0-130. Flexibility in LE WNL, Hip and ankle AROM symmetrical and WFL. Incisions have healed well and mild scar tissue on two anterior incisions. no signs of excessive redness heat or swelling. Slightly tender to touch. Medial knee more sore adn tender than lateral. reflexes 2/3 patella and achilles. Sensation LE WNL to gorss light touch. Strength R hip 4- and L 4. R knee 4- and L 4 without much increased discomfort. Ankles 4+ B. SLS able B but more challenging on R. - Goals Goal 1:: Full aROM without increased pain to 130 degrees flexion r knee Goal Time Frame: 4-6 Weeks Goal 2:: Walk without antalgia and steps reciprocally without pain Goal Time Frame: 4-6 Weeks Goal 3:: Sleep without waking at night due to pain Goal Time Frame: 4-6 Weeks Goal 4:: I approp care home ex to minimize future problems Goal Time Frame: 4-6 Weeks Goal 5:: LEFS score of 68+ Goal Time Frame: 4-6 Weeks - Rehabilitation Potential Physical Therapy Diagnosis: R knee s/p meiscectomy / Rehabilitation Potential: Good - Anticipated Interventions Patient/Client Instruction: Educate patient on: Condition, Plan of Care For the Purpose of:: To decrease pain, To increase ROM, To improve muscle performance and motor function, To increase tolerance to activity/condition/position, To improve ability of physical actions for home/community/work/leisure, To improve gait and locomotor functions Therapeutic Exercise to Include: Strength training, Gait and locomotor training, Passive ROM, Active ROM For the Purpose of:: To decrease pain, To increase ROM, To improve muscle performance and motor function, To increase tolerance to activity/condition/pos ition, To improve performance and independence with ADL's Manual Therapy Techniques to Include: Scar massage, Mobilization For the Purpose of:: To decrease pain, To increase ROM TENS: Yes Cryotherapy (ice pack, ice massage): Yes For the Purpose of:: To decrease pain Thank you for the opportunity to evaluate your patient. For Medicare and Medicare HMO plans, please review the plan of care and approve it. It will need to be FAXED BACK to us at [phone] for Medicare purposes. For Medicare only, by signing this I certify the plan of care. Please let me know if there are questions or concerns regarding this plan of care. Physician Sign ature: Date:
--- NOTE | 2020-04-29 17:22 | HP.PTDCSUM ---
It has been my pleasure to treat RISHI TREJO referred by Dr. Josetet Taylor DO, with the diagnosis of R knee pain, meniscal tear, s/p meniscectomy 03/26 for a total of 5 visit(s). Discharge Date: Please see the following information for a summary of their discharge status. Subjective: Better every day. Only pain is medial knee if walks incorrectly. 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 Sleeping is OK. Home exercises oing well. Exercises help. Physical labor is alot of her exercise. Wants to sign up for gym but may not be the right R knee medial Pain Intensity (Out of 10): 0 % Improvement: 90 Objective/Function: 0-132 aROM R knee, strength 4+/5 knee ext adn flexion. Walks without deficits adn steps recirpocal without rail. 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 Thank you for the referral of this patient. Sincerely, Gerson Lockhart, DPT, OCS, CSCS
== END 2020-04-29 19:00 | disposition home or self-care (01) ==
LOC: PT 17:00
PROVIDERS: PCP Family Medicine; Referring Provider Orthopaedic Surgery; Visit Provider Orthopaedic Surgery
DX: Z98.890 Other specified postprocedural states (principal)
CPT/HCPCS: 97014; 97110; 97140; 97161; 97164; G0283

== ENCOUNTER → 2020-07-09 15:30 | Outpatient (CLI) | payer OTHER, SELFPAY ==
[2020-05-15 15:46] VITALS: BMI 31.0
--- NOTE | 2020-07-09 15:32 | BI_ITS ---
MAMMOGRAPHY - BILATERAL SCREENING 3-D TOMOSYNTHESIS REASON FOR EXAM: Female, 54 years old. Routine screening PERTINENT HISTORY: No significant family history. TECHNIQUE: 2-D mammograms and 3-D Tomosynthesis of the breast (s) were performed. CAD was performed. COMPARISON: 07/06/2019 FINDINGS: The breast composition is composed of scattered fibroglandular density. Scattered benign calcifications are seen. No dense spiculated masses or suspicious microcalcifications are identified. No architectural distortion is identified. There is no skin thickening or retraction. There has been no significant change since the prior study. BI/SCREEN MAMM (CAD) W/VÍCTOR BILAT IMPRESSION: No mammographic signs of malignancy. Routine yearly mammograms recommended. ASSESSMENT CATEGORY: BIRADS Category 1: Negative. A letter regarding these results will be sent to the patient by the facility within 30 days. FOLLOW UP RECOMMENDATION: Yearly follow up mammogram recommended. (A) Approximately 10% of breast cancers are not detected by mammography. A normal mammogram should not delay biopsy of a clinically suspicious abnormality. Electronically Signed: Esteban Sargent MD at 10:33 EDT , Service support ,
== END ==
PROVIDERS: PCP Family Medicine; Referring Provider Family Medicine; Visit Provider Family Medicine
DX: Z12.31 Encounter for screening mammogram for malignant neoplasm of breast (principal)
CPT/HCPCS: 77063; 77067

== ENCOUNTER → 2020-08-25 16:42 | Outpatient (CLI) | payer OTHER, SELFPAY ==
[2020-05-15 15:46] VITALS: BMI 31.0
--- NOTE | 2020-08-25 16:44 | RAD_ITS ---
HISTORY: FALL 6 WEEKS AGO, MEDIAL PAIN AND SWELLING COMPARISON: None FINDINGS: # of images incl. paperwork: 3 XR Ankle Min 3 Views: Right BONE AND JOINTS: No acute fracture or subluxation. SOFT TISSUES: There is medial greater than lateral soft tissue swelling. Calcification is seen within the soft tissues posterior to the mid distal fibula and tibia only seen on the lateral view. Correlate clinically for artifact. This may represent myositis ossificans Phleboliths are seen within the soft tissue anterior to the distal tibia RAD/Ankle min 3 Views IMPRESSION: Soft tissue swelling as discussed. Calcific density within the soft tissues posterior to the level of the mid tibia only seen on the lateral view at 0348 Reported and signed by: Lakisha Ward DO Electronically Signed: Lakisha Ward DO at 3:47 EDT Tel , Service support ,
== END ==
PROVIDERS: PCP Family Medicine; Referring Provider Family Medicine; Visit Provider Family Medicine
DX: S93.429A Sprain of deltoid ligament of unspecified ankle, initial encounter (principal)
CPT/HCPCS: 73610

== ENCOUNTER → 2020-09-05 07:23 | Outpatient (CLI) | payer OTHER, SELFPAY ==
[2020-05-15 15:46] VITALS: BMI 31.0
--- NOTE | 2020-09-05 07:45 | MRI_ITS ---
STUDY: MRI RIGHT ANKLE WITHOUT CONTRAST REASON FOR EXAM: Female, 54 years old. right medial ankle sprain, s/p fall 06/2020 TECHNIQUE: Standardized fat and water weighted pulse sequences were obtained in all 3 orthogonal planes. COMPARISON: X-ray 08/25/2020 FINDINGS: Some edema of the subcutaneous fat medially and laterally possibly from passive congestion. Normal posterior tibialis tendon. Normal flexor digitorum longus tendon. Normal flexor hallucis longus tendon. Normal peroneus longus and brevis tendons. Normal tibialis anterior tendon. Normal extensor hallucis longus tendon. Normal extensor digitorum longus tendons. Normal Achilles tendon and teno-osseous insertion. Normal plantar fascia. Normal plantar calcaneal tubercles. Normal intrinsic muscles of the rearfoot. Normal distal tibiofibular syndesmotic ligamentous complex. Normal lateral ligamentous complex. Normal subtalar ligaments and sinus tarsi. Normal deltoid ligamentous complexes. Normal plantar calcaneonavicular (spring) ligament. Normal tibiotalar articulation. Normal talar dome. Normal subtalar articulations. Normal talonavicular articulation. Normal calcaneocuboid articulation. Normal navicular-cuneiform articulations. MRI/Lower Ext Joint Only (Routine) IMPRESSION: Normal MRI of the ankle and rearfoot. Electronically Signed: Hong Masters MD at 12:36 EDT Tel , Service support ,
== END ==
PROVIDERS: PCP Family Medicine; Referring Provider Family Medicine; Visit Provider Family Medicine
DX: S93.429A Sprain of deltoid ligament of unspecified ankle, initial encounter (principal)
CPT/HCPCS: 73721

== ENCOUNTER → 2020-09-15 15:41 | Outpatient (CLI) | payer OTHER, SELFPAY ==
--- NOTE | 2020-09-15 15:42 | RAD_ITS ---
HISTORY: right knee pain, hx of 2 knee surgeries EXAMINATION/TECHNIQUE: XR right knee 4 views with weightbearing COMPARISON: 01/17/2020 FINDINGS: No fracture or acute osseous abnormality. No suspicious bony lesion. Osteoarthritis with mild narrowing and mild marginal spurring of the tibiofemoral medial compartment. The lateral joint space compartment and patellofemoral joint space appears preserved. Small to moderate suprapatellar effusion. RAD/Knee 4 or More Views IMPRESSION: 1. No fracture or acute disease. 2. Right knee medial compartment mild osteoarthritis with joint effusion. at 0632 Reported and signed by: Jean Dyer MD Electronically Signed: Jean Dyer, at 6:30 EDT Tel , Service support ,
== END ==
PROVIDERS: PCP Family Medicine; Referring Provider Physician Assistant; Visit Provider Physician Assistant
DX: M25.561 Pain in right knee (principal)
CPT/HCPCS: 73564

== ENCOUNTER → 2020-12-09 07:14 | Outpatient (CLI) | payer OTHER, SELFPAY ==
[2020-12-09 08:18] LABS: Anion Gap 5 (5-15); BUN 14 mg/dL (7-18); BUN/Creat Ratio 14.6 RATIO (10-20); Calcium,Total 9.4 mg/dL (8.5-10.1); Chloride 106 mmol/L (98-107); Cholesterol 160 mg/dL (200); Creatinine, Serum 0.96 mg/dL (0.55-1.02); EST Glomerular Filtration Rate 64 mL/min (>60); Est Glom Filt Rate - Afr Amer 77 mL/min (>60); Glucose 118 mg/dL (74-106); High Density Lipoprotein 47 mg/dL; Potassium 3.9 mmol/L (3.5-5.1); Sodium Level 140 mmol/L (136-145); Triglycerides 111 mg/dL; Very Low Density Lipoprotein 22 mg/dL (5-40)
== END ==
PROVIDERS: PCP Family Medicine; Referring Provider Family Medicine; Visit Provider Family Medicine
DX: E11.9 Type 2 diabetes mellitus without complications (principal)
CPT/HCPCS: 36415; 80048; 80061

== ENCOUNTER → 2021-02-26 15:40 | Outpatient (CLI) | payer OTHER, SELFPAY ==
[2021-02-26 18:53] LABS: Free T3 2.2 pg/mL (2.18-3.98); T4 Free Direct 1.12 ng/dL (0.76-1.46); Thyroid Stim Hormone (TSH) 2.12 uIU/mL (0.358-3.74)
== END ==
PROVIDERS: PCP Family Medicine; Referring Provider Family Medicine; Visit Provider Family Medicine
DX: E03.9 Hypothyroidism, unspecified (principal)
CPT/HCPCS: 36415; 84439; 84443; 84481

== ENCOUNTER 2022-01-19 08:33 | Outpatient (CLI) | payer BC, SELFPAY ==
[2022-01-19 10:39] LABS: Anion Gap 4 (5-15); BUN 17 mg/dL (7-18); BUN/Creat Ratio 20.3 RATIO (10-20); Calcium,Total 9.3 mg/dL (8.5-10.1); Chloride 107 mmol/L (98-107); Cholesterol 180 mg/dL (200); Creatinine, Serum 0.84 mg/dL (0.55-1.02); EST Glomerular Filtration Rate 74 mL/min (>60); Est Glom Filt Rate - Afr Amer 90 mL/min (>60); Free T3 2.4 pg/mL (2.18-3.98); Glucose 113 mg/dL (74-106); High Density Lipoprotein 50 mg/dL; Potassium 4.1 mmol/L (3.5-5.1); Sodium Level 141 mmol/L (136-145); T4 Free Direct 1.06 ng/dL (0.76-1.46); Thyroid Stim Hormone (TSH) 2.21 uIU/mL (0.358-3.74); Triglycerides 105 mg/dL; Very Low Density Lipoprotein 21 mg/dL (5-40)
== END 2022-01-19 23:59 | disposition home or self-care (01) ==
LOC: MFPLAB 08:38
PROVIDERS: PCP Family Medicine; Referring Provider Family Medicine; Visit Provider Family Medicine
DX: E03.9 Hypothyroidism, unspecified (principal); E11.9 Type 2 diabetes mellitus without complications
CPT/HCPCS: 36415; 80048; 80061; 84439; 84443; 84481

== ENCOUNTER → 2022-03-29 | Outpatient (CLI) | payer OTHER, SELFPAY ==
[2022-03-29 23:01] LABS: Mucous, Urine 0 SEEN /hpf (<or=2+)
[2022-03-29 23:07] LABS: Color, Urine Yellow (Yellow); Glucose, Dipstick 1000 mg/dl (Normal); Ketone-Dipstick Negative (Negative); Leukocyte Esterase-Dipstick 500 /ul (Negative); Nitrite-Dipstick Negative (Negative); Occult Blood-Urine 150 /ul (Negative); Protein-Dipstick 100 mg/dl (Negative); Specific Gravity, Urine 1.015 (1.002-1.030); Urine Bilirubin Dipstick Negative (Negative); Urine Clarity Cloudy (Clear); Urine Urobilinogen Normal (Normal); Urine pH 6.5 (5.0 - 8.0)
[2022-03-29 23:40] LABS: Red Blood Cells-Urine 10-25 SEEN /hpf (0-5); White Blood Cells 50-100 SEEN /hpf (0-5)
[2022-03-29 23:43] LABS: Bacteria 2+ /hpf (None Seen); Squamous Epithelial Cells - UA 0-5 SEEN /hpf (5-10)
== END | disposition home or self-care (01) ==
PROVIDERS: PCP Family Medicine; Referring Provider Physician Assistant Surgical; Visit Provider Physician Assistant Surgical
DX: R30.9 Painful micturition, unspecified (principal)
CPT/HCPCS: 81001; 87086; 87088

== ENCOUNTER → 2022-06-08 | Outpatient (CLI) | payer OTHER, SELFPAY ==
--- NOTE | 2022-06-08 15:38 | BI_ITS ---
MAMMOGRAPHY - BILATERAL SCREENING REASON FOR EXAM: Female, 56 years old. Routine annual screening examination. PERTINENT HISTORY: Non-contributory. TECHNIQUE: Digital bilateral breast víctor (3D mammographic acquisition) in the CC and MLO projections. 2-D mediolateral oblique (MLO) and craniocaudad (CC) views of both breasts were obtained. CAD: Full Field Digital Mammography with Computer Added Detection was performed. COMPARISON: Comparison is made with prior examination dated 07/09/2020 and 07/06/2019. FINDINGS: Breast Composition: The breasts are heterogeneously dense, which may obscure small masses. There are no dominant masses or suspicious calcifications. Stable small benign appearing bilateral axillary lymph nodes. No other significant abnormalities are identified. There has been no significant change since the prior study. BI/SCRN MAMM (CAD)W/VÍCTOR BILAT IMPRESSION: Stable bilateral screening mammogram. Yearly follow-up mammogram recommended. (A) ASSESSMENT CATEGORY: BIRADS Category 2: Benign. A letter regarding these results will be sent to the patient by the facility within 30 days. Approximately 10% of breast cancers are not detected by mammography. A normal mammogram should not delay biopsy of a clinically suspicious abnormality. [id number] Electronically Signed: Romario Beavers MD at 8:50 EDT ,
--- NOTE | 2022-06-08 15:43 | BD_ITS ---
STUDY: DUAL ENERGY X-RAY ABSORPTIOMETRY / DXA REASON FOR EXAM: Female, 56 years old. [id number] TECHNIQUE: Bone Mineral Density (BMD) measurements of lumbar spine and bilateral hips were obtained. COMPARISON: None. FINDINGS: Lumbar Spine (L1-L4): g/cm2 (1.365) / T-score (2.9) / Z-score (4.2) Findings are suggestive of normal bone density with a low fracture risk. Left Femur Total: g/cm2 (1.364) / T-score (3.5) / Z-score (4.3) Left Femoral Neck: g/cm2 (1.227) / T-score (3.4) / Z-score (4.6) Right Femur Total: g/cm2 (1.344) / T-score (3.3) / Z-score (4.2) Right Femoral Neck: g/cm2 (1.170) / T-score (2.9) / Z-score (4.1) BD/Dexa Bone Density Study IMPRESSION: The patient is considered normal as outlined below according to World Omid Organization (WHO) criteria with a low fracture risk. Reference Information: The T-score is the number of standard deviations above or below the standard which is normal for young adults at their peak bone mineral density. The World Health Organization (WHO) interprets the T-scores as follows: Above -1 Normal bone density Between -1 and -2.5 Osteopenia Equal to / or below -2.5 Osteoporosis As a practical clinical guideline, osteopenia may be graded as follows: Mild -1 through -1.5 Moderate -1.6 through -2.0 Severe -2.1 through -2.4 The Z-score is the number of standard deviations above or below age-matched controls. A Z-score of less than -1.5 would be considered abnormal. References: 1. NIH Osteoporosis and Related Bone Diseases www osteo.org 2. International Society for Clinical Densitometry www iscd.org 3. National Osteoporosis Foundation www nof.org Electronically Signed: Romario Beavers MD at 13:50 EDT ,
== END | disposition home or self-care (01) ==
PROVIDERS: PCP Family Medicine; Visit Provider Family Medicine
DX: Z78.0 Asymptomatic menopausal state (principal); Z12.31 Encounter for screening mammogram for malignant neoplasm of breast
CPT/HCPCS: 77063; 77067; 77080

== ENCOUNTER → 2022-06-08 | Outpatient (CLI) | payer OTHER, SELFPAY ==
[2022-06-08 17:41] LABS: Hemoglobin A1c 6.3 % (3.8-5.6)
== END | disposition home or self-care (01) ==
LOC: LAB 16:06
PROVIDERS: PCP Family Medicine; Referring Provider Family Medicine; Visit Provider Family Medicine
DX: E11.9 Type 2 diabetes mellitus without complications (principal)
CPT/HCPCS: 36415; 83036

== ENCOUNTER → 2022-12-10 | Outpatient (CLI) | payer OTHER, SELFPAY ==
[2022-12-10 08:41] LABS: Microalbumin,Random Urine 10.9 mg/L (NO RANGE EST.); Microalbumin:Creatinine Ratio 7.2 mg/g CRE (<30 mg/g CRE)
[2022-12-10 08:50] LABS: Anion Gap 5 (5-15); BUN 14 mg/dL (7-18); BUN/Creat Ratio 15.4 RATIO (10-20); Calcium,Total 9.5 mg/dL (8.5-10.1); Chloride 103 mmol/L (98-107); Cholesterol 210 mg/dL (200); Creatinine, Serum 0.91 mg/dL (0.55-1.02); EST Glomerular Filtration Rate 67 mL/min (>60); Est Glom Filt Rate - Afr Amer 81 mL/min (>60); Free T3 2.4 pg/mL (2.18-3.98); Glucose 145 mg/dL (74-106); High Density Lipoprotein 52 mg/dL; Sodium Level 140 mmol/L (136-145); T4 Free Direct 1.16 ng/dL (0.76-1.46); Thyroid Stim Hormone (TSH) 2.94 uIU/mL (0.358-3.74); Triglycerides 148 mg/dL; Very Low Density Lipoprotein 30 mg/dL (5-40)
== END | disposition home or self-care (01) ==
LOC: LAB 07:54
PROVIDERS: PCP Family Medicine; Referring Provider Family Medicine; Visit Provider Family Medicine
DX: E03.9 Hypothyroidism, unspecified (principal); E11.9 Type 2 diabetes mellitus without complications
CPT/HCPCS: 36415; 80048; 80061; 82043; 82570; 84439; 84443; 84481

== ENCOUNTER → 2023-05-13 | Outpatient (CLI) | payer OTHER, SELFPAY ==
[2023-05-13 10:31] LABS: Anion Gap 4 (5-15); BUN 14 mg/dL (7-18); BUN/Creat Ratio 14.3 RATIO (10-20); Calcium,Total 9.5 mg/dL (8.5-10.1); Chloride 105 mmol/L (98-107); Cholesterol 197 mg/dL (200); Creatinine, Serum 0.98 mg/dL (0.55-1.02); EST Glomerular Filtration Rate 62 mL/min (>60); Est Glom Filt Rate - Afr Amer 75 mL/min (>60); Glucose 138 mg/dL (74-106); High Density Lipoprotein 42 mg/dL; Potassium 4.2 mmol/L (3.5-5.1); Sodium Level 139 mmol/L (136-145); Triglycerides 142 mg/dL; Very Low Density Lipoprotein 28 mg/dL (5-40)
[2023-05-13 10:40] LABS: Hemoglobin A1c 6.7 % (3.8-5.6)
== END | disposition home or self-care (01) ==
LOC: MTLAB 08:27
PROVIDERS: PCP Family Medicine; Referring Provider Family Medicine; Visit Provider Family Medicine
DX: E11.9 Type 2 diabetes mellitus without complications (principal)
CPT/HCPCS: 36415; 80048; 80061; 83036

== ENCOUNTER → 2023-06-09 | Outpatient (CLI) | payer OTHER, SELFPAY ==
--- NOTE | 2023-06-09 16:25 | BI_ITS ---
MAMMOGRAPHY - BILATERAL SCREENING 3-D TOMOSYNTHESIS REASON FOR EXAM: Female, 57 years old. SCREENING PERTINENT HISTORY: No significant family history. TECHNIQUE: 2-D mammograms and 3-D Tomosynthesis of the breast (s) were performed. CAD was performed. COMPARISON: None. FINDINGS: The breast composition is composed of scattered fibroglandular density. Scattered benign calcifications are seen. No dense spiculated masses or suspicious microcalcifications are identified. No architectural distortion is identified. There is no skin thickening or retraction. There has been no significant change since the prior study. BI/SCRN MAMM (CAD)W/VÍCTOR BILAT IMPRESSION: No mammographic signs of malignancy. Routine yearly mammograms recommended. ASSESSMENT CATEGORY: BIRADS Category 2: Benign. A letter regarding these results will be sent to the patient by the facility within 30 days. FOLLOW UP RECOMMENDATION: Yearly follow up mammogram recommended. (A) Approximately 10% of breast cancers are not detected by mammography. A normal mammogram should not delay biopsy of a clinically suspicious abnormality. Electronically Signed: Esteban Sargent MD at 20:34 EDT ,
== END | disposition home or self-care (01) ==
LOC: OPBI 16:23
PROVIDERS: PCP Family Medicine; Referring Provider Family Medicine; Visit Provider Family Medicine
DX: Z12.31 Encounter for screening mammogram for malignant neoplasm of breast (principal)
CPT/HCPCS: 77063; 77067

== ENCOUNTER 2023-12-25 13:48 | Emergency (ER) | payer OTHER, SELFPAY ==
[2023-12-25 13:49] VITALS: BP 178/69; PULSE 88; RESP 16; TEMP 36.3; O2SAT 99; BMI 30.1
--- OUTSIDE RECORDS SUMMARY | 2023-12-25 14:27 | XMS RPT_ITS | CCD ---
Author Name Unknown Address [address] [place] [address] Organization [facility] Care Team Providers Care Barrel Stave Inspector Name Role Phone Tip LOZOYA, Nathan Richard Unavailable Allergies Allergy Classification Reported Allergen(s) Allergy Type Date of Onset Reaction(s) Facility (2 sources) hydroxychloroquine Drug Allergy 7 rash [facility] Work Phone: (2 sources) pregabalin Drug Allergy 7 N&V [facility] Work Phone: Medications Completed/Discontinued Medications Medication Drug Class(es) Dates Sig (Normalized) Sig (Original) nitrofurantoin, macrocrystals 25 mg / nitrofurantoin, monohydrate 75 mg oral capsule (2 sources) Start: 10-19-2017 MACROBID 100 MG CAPS 1 capsule twice daily NITROFURANTOIN MONOHYD MACRO [id number] Nathan LOZOYA LEVOTHYROXINE SODIUM TABS (2 sources) l-Thyroxine Start: 10-19-2017 SYNTHROID TABS as directed LEVOTHYROXINE SODIUM TABS [id number] Nathan LOZOYA Problems Problem Classification Problem Date Documented Da te Episodic/Chronic Genitourinary symptoms and ill-defined conditions (2 sources) Scalding pain on urination ; Translations: [Painful micturition, unspecified] Onset: 10-19-2017 10-19-2017 Episodic Urinary tract infections (2 sources) Urinary tract infectious disease; Translations: [Urinary tract infection, site not specified] Onset: 10-19-2017 10-19-2017 Episodic Results Test Name Value Interpretation Reference Range Facil ity Vital Signs Date Time Vital Sign Value Performing Clinician Faci lity 10-19-2017 17:09-0500 BMI (Body Mass Index) 31.14 kg/m2 Nathan Whelan [facility] Work Phone: 10-19-2017 17:09-0500 Body Temperature 98.2 [degF] Nathan Whelan [facility] Work Phone: 10-19-2017 17:09-0500 BP Diastolic 62 mm[Hg] Nathan Tip LOZOYA [facility] Work Phone: 10-19-2017 17:09-0500 BP Systolic 110 mm[Hg] Nathan Whelan [facility] Work Phone: 10-19-2017 17:09-0500 Height 175.9 cm Nathan Tip LOZOYA [facility] Work Phone: 10-19-2017 17:09-0500 Pulse (Heart Rate) 78 /min Nathan Tip LOZOYA [facility] Work Phone: 10-19-2017 17:09-0500 Respiratory Rate 13 /min Nathan Walterchaparro [facility] Work Phone: 10-19-2017 17:09-0500 Weight 96.34 kg Nathan Tip LOZOYA [facility] Work Phone: Procedures Date Procedure Procedure Detail Performing Clinician Start: 10-19-2017 End: 10-19-2017 Urnls dip stick/tablet rgnt non-auto w/o micrscp Nathan LOZOYA Work Phone: Plan of Treatment Date Care Activity Detail Author Start: 10-19-2017 End: 10-19-2017 Appointment [facility] Work Phone: Additional Source Comments FOR RECORDS PERTAINING TO PATIENTS WHO ARE OR HAVE BEEN ENROLLED IN A CHEMICAL DEPENDENCY/SUBSTANCEABUSE PROGRAM, SOME INFORMATION MAY BE OMITTED. This clinical summary was aggregated from multiple sources. Caution should be exercised in using it in the provision of clinical care. This summary normalizes information from multiple sources, and as a consequence, information in this document may materially change the coding, format and clinical context of patient data. In addition, data may be omitted in some cases. CLINICAL DECISIONS SHOULD BE BASED ON THE PRIMARY CLINICAL RECORDS. [facility]. provides no warranty or guarantee of the accuracy or completeness of information in this document.
[2023-12-25] MEDS: Ketorolac 15 MG/ML Vial IM (14:31)
--- NOTE | 2023-12-25 14:32 | EDS_ITS ---
HPI <DARELL Andrade - Last Filed: 12/25/23 16:05> History of Present Illness Chief Complaint: Upper Extremity Injury <Dr. Noreen Real DO - Last Filed: 12/25/23 15:19> History of Present Illness Detail of Chief Complaint: Left shoulder pain Informant: patient Narrative Narrative: Patient presents to the emergency department with complaint of pain in her left shoulder and left anterior chest. Symptoms started about 4 days ago when she woke up 1 morning. She denies falls or injuries. She denies shooting pain down the arm or weakness in the arm. She denies exertional symptoms. She has had no cough. Denies recent travel or surgery. No history of PE or DVT. Pain is not pleuritic. Patient has been using multiple home remedies including a muscle relaxer that she had leftover as well as IcyHot and Motrin.. The muscle relaxer this seemed to help her pain but it is sedating so she only takes it at night. Patient came in today because she has a hard time dressing herself not because of the pain. [facility] <DARELL Andrade - Last Filed: 12/25/23 16:05> [facility] Medical History Encounter for screening for COVID-19 Home Medications levothyroxine 88 mcg tablet 88 mcg PO DAILY 07/04/14 [History Last Taken 03/26/20] acetaminophen 500 mg tablet (Tylenol Extra Strength) 500 mg PO Q6H PRN 04/02/21 [History Last Taken Unknown] ibuprofen 200 mg capsule 200 mg PO Q6H PRN 04/02/21 [History Last Taken Unknown] metformin 500 mg tablet 1,000 mg PO BID 04/02/21 [History Last Taken Unknown] metaxalone 800 mg tablet 800 mg PO TID PRN muscle pain 5 days #15 tabs 12/25/23 [Rx Last Taken Unknown] Allergy/AdvReac Type Severity Reaction Status Date / Time hydroxychloroquine sulfate Allergy Rash Verified 12/25/23 13:50 [From Plaquenil] pregabalin [From Lyrica] AdvReac Nausea/Vom/ Verified 12/25/23 13:50 Diarrhea tramadol HCl [From Ultram] AdvReac Nausea/Vom/ Verified 12/25/23 13:50 Diarrhea Surgical History S/P right knee arthroscopy Social History Smoking Status: Never smoker alcohol intake: never ROS <Dr. Noreen Real DO - Last Filed: 12/25/23 15:19> ROS ED Review of Systems ROS Unobtainable: other Constitutional Constitutional ED: Reports lethargy; Denies chills, fever(s), sweats or weight loss Eyes Eyes: Denies blurry vision, change in vision or diplopia ENT ENT ED: Denies rhinorrhea or sore throat Cardiovascular Cardiovascular: Reports chest pain; Denies orthopnea or racing heartbeat Respiratory/Chest Respiratory/Chest: Denies cough, dyspnea, dyspnea on exertion, orthopnea or sputum Gastrointestinal Gastrointestinal: Denies abdominal pain, diarrhea, nausea or vomiting Genitourinary Genitourinary ED: Denies dysuria, hematuria or urinary frequency Musculoskeletal Musculoskeletal: Reports back pain and neck pain; Denies arthralgias or myalgias Integumentary Denies abscess, Abrasions or rash Neurologic Neurologic: Denies headache(s) or weakness Psychiatric Psychiatric: Denies anxiety, depression or suicidal thoughts Endocrine Endocrinology: Denies polydipsia, polyphagia or polyuria Hematologic/Lymphatic Hematologic/Lymphatic: Denies easy bleeding, easy bruising or lymphadenopathy Allergic/Immunologic Allergic/Immunologic ED: Denies mouth swelling, tongue swelling or urticaria EXAM <DARELL Andrade - Last Filed: 12/25/23 16:05> Physical Exam Const Vital Signs: 12/25/23 13:49 Temperature 97.4 F L Temperature Source Temporal Pulse Rate 88 Respiratory Rate 16 Blood Pressure 178/69 H Blood Pressure Mean 105 Pulse Ox 99 Oxygen Delivery Method Room Air <Dr. Noreen Real DO - Last Filed: 12/25/23 15:19> Physical Exam Const Positive well nourished and well developed General Appearance ED: well developed and NAD HEENT Reports TM's clear and moist mucous membranes normocephalic and atraumatic; Negative for trauma or tenderness Tympanic Membrane ED: Yes TM's clear Eyes PERRL and EOMs intact bilaterally General Eye ED: Negative for pale conjunctiva or scleral icterus Neck no lymphadenopathy, supple and no JVD General: Negative for tenderness Chest Wall Negative for inspection of chest normal or palpation of chest normal Chest Narrative: Patient with tenderness palpation over the left pectoralis muscle that seems to reproduce her pain. No erythema or warmth noted to the area. Chest: Negative for tenderness Resp normal respiratory effort and clear to auscultation bilaterally Effort and Inspection: Negative for respiratory distress or pain with movement Auscultation: Negative for rhonchi, wheezes or diminished lung sounds Cardio regular rate, regular rhythm, S1 normal heart sound, S2 normal heart sound and no murmurs Peripheral Pulses: pulses 2+ throughout GI normal to inspection, nondistended, normoactive bowel sounds, soft to palpation, non-tender, non-distended and no masses Back/Spine no CVA tenderness and no thoracic nor lumbar tenderness Back/Spine Narrative: Tenderness palpation over the left trapezius that seems to reproduce her pain. There is no ecchymosis or bruising noted. No masses palpated. Extremity normal to inspection Extremity Narrative: Left shoulder-patient has normal range of motion. General Extremety ED: Negative for edema General Extremity: Negative for edema Neuro oriented x3, CN's II-XII intact bilaterally, no sensory deficits noted and gait normal Sensorium / Orientation: awake, alert, oriented to person, oriented to place and oriented to time Motor Exam: strength 5/5 throughout and strength abnormal Psych mental status grossly normal Skin no rashes or lesions noted and no wounds [facility] <Dr. Noreen Real, DO - Last Filed: 12/25/23 15:19> [facility] Narrative Medical decision making narrative: I have personally performed a face to face assessment of the patient and have reviewed the GÓMEZ Note. I performed a substantive portion of the visit including all aspects of the following. My medellin findings include: History is [patient was left back and shoulder and anterior chest pain that started 4 days ago when she woke up. Denies shortness of breath or exertional symptoms. She denies injury. No recent travel or surgery. No history of PE or DVT. She has been using IcyHot as well as ibuprofen and a muscle relaxer. The muscle relaxer does seem to help the pain but it is sedating so she only takes it at night. She has no heart history.] Pain worse with certain motions and came in today because she is not having a hard time dressing herself because of the pain when she moves her left arm. Exam is [HEENT-PERRLA, EOMI. Cranial nerves II through XII grossly intact. TMs clear. Mucous membranes moist. No adenopathy. Cardiovascular-regular rate and rhythm without murmur or ectopy Lungs-clear to auscultation, chest wall stable without crepitus or subcu emphysema Abdomen-normoactive bowel sounds, soft, nontender, no rebound or rigidity, no peritoneal signs. Extremities-intact ?4, normal range of motion, normal pulses, atraumatic. Back exam-patient has tenderness to palpation over the left trapezius that seems to reproduce her pain. Patient also with tenderness into the left anterior chest over the area of the pectoralis muscle that seems to reproduce her pain also.] Medical Decison Making [will obtain a chest x-ray to rule out pleural abnormalities that may be because of her pain. Clinically I suspect this is more musculoskeletal pain.] Other additions or changes: [None] Radiography Diagnostic Testin view chest x-ray obtained interpreted by myself as no evidence of infiltrate or mass in the left upper lobe or acute disease process. Official report from radiology will be pending. Discharge Plan Triage Chief Complaint: Upper Extremity Injury ED Midlevel Provider: Monique De La Fuente ED Provider: Noreen Real Dx/Rx/DC Orders Clinical Impression: Muscle strain Instructions: Self-Care for Strains and Sprains Prescriptions: New metaxalone 800 mg tablet 800 mg PO TID PRN (Reason: muscle pain) 5 Days Qty: 15 0RF No Action metformin 500 mg tablet 1,000 mg PO BID acetaminophen [Tylenol Extra Strength] 500 mg tablet 500 mg PO Q6H PRN ibuprofen 200 mg capsule 200 mg PO Q6H PRN levothyroxine 88 MCG tablet 88 mcg PO DAILY Primary Care Provider: Yoel Herring Referrals: Yoel Herring MD [Primary Care Provider] - 3-5 Days Activity Restrictions/Additional Instructions: Follow-up with PCP and return for any worsening of your symptoms. Disposition Disposition: Home, Self Care Discharge Date/Time: 12/25/23 15:30
--- NOTE | 2023-12-25 14:44 | RAD_ITS ---
STUDY: X-RAY CHEST REASON FOR EXAM: Female, 58 years old. chest pain TECHNIQUE: Single AP portable view of the chest. COMPARISON: None. FINDINGS: The lungs are clear and expanded. There is no demonstrated pleural abnormality. Normal size heart. Normal mediastinum and magi. Normal visualized pulmonary arteries. Normal visualized aortic arch and descending thoracic aorta. There are diffuse degenerative changes of the visualized thoracic spine. Normal visualized ribs, clavicles, and shoulders. There is no demonstrated abnormality of the visualized soft tissue structures of the upper abdomen. RAD/Chest 1 View (Portable) IMPRESSION: Degenerative changes, as described above. No demonstrated acute cardiopulmonary process. Electronically Signed: Mt Piña MD at 15:35 EST ,
[2023-12-25 15:29] VITALS: BP 163/84; PULSE 74
== END 2023-12-25 15:30 | disposition home or self-care (01) ==
PROVIDERS: Emergency Provider Emergency Medicine; PCP Family Medicine; Visit Provider Emergency Medicine
DX: S29.012A Strain of muscle and tendon of back wall of thorax, initial encounter (principal); X58.XXXA Exposure to other specified factors, initial encounter
CPT/HCPCS: 71045; 96372; 99282

== ENCOUNTER → 2024-04-11 | Outpatient (CLI) | payer OTHER, SELFPAY ==
--- NOTE | 2024-04-11 16:33 | MRI_ITS ---
EXAM: MR RIGHT LOWER EXTREMITY WITHOUT INTRAVENOUS CONTRAST, ANKLE CLINICAL INDICATION: Posterior tibial tendinitis, tarsal tunnel syndrome, ganglion TECHNIQUE: Multiplanar and multisequence MR images of the right ankle without intravenous contrast. COMPARISON: No relevant prior studies available. FINDINGS: LIGAMENTS: ANTERIOR TALOFIBULAR: Unremarkable. Intact. POSTERIOR TALOFIBULAR: Unremarkable. Intact. ANTERIOR TIBIOFIBULAR: Unremarkable. Intact. POSTERIOR TIBIOFIBULAR: Unremarkable. Intact. CALCANEOFIBULAR: Unremarkable. Intact. DELTOID: Unremarkable. Intact. SPRING: Unremarkable. Intact. LISFRANC: Unremarkable. Intact. TENDONS: ACHILLES: Unremarkable. Intact. FLEXOR: Unremarkable. Intact. EXTENSOR: Unremarkable. Intact. PERONEAL: Unremarkable. Intact. TIBIALIS ANTERIOR: Unremarkable. Intact. TIBIALIS POSTERIOR: Unremarkable. Intact. MUSCLES: Unremarkable. Normal bulk and signal. FLUID: Large tibiotalar joint effusion anteriorly without significant synovitis or any intra-articular ossific bodies. Small posterior subtalar joint effusion. SINUS TARSI: Unremarkable. Normal fat in the sinus tarsi. TARSAL TUNNEL: Unremarkable. PLANTAR FASCIA: Unremarkable. Intact. CARTILAGE: Unremarkable. No osteochondral lesion. Articular cartilage intact. BONES/JOINTS: Unremarkable. Talar dome intact. No fracture or marrow edema. OTHER SOFT TISSUES: Unremarkable. MRI/Lower Ext Joint Only (Routine) IMPRESSION: 1. Large tibiotalar joint effusion anteriorly. Small posterior subtalar joint effusion. 2. No other significant internal derangement. Electronically Signed: Jose Luis Yuen MD at 22:08 EDT ,
== END | disposition home or self-care (01) ==
PROVIDERS: PCP Family Medicine; Referring Provider Podiatrist; Visit Provider Podiatrist
DX: M76.821 Posterior tibial tendinitis, right leg (principal); G57.51 Tarsal tunnel syndrome, right lower limb; M67.471 Ganglion, right ankle and foot
CPT/HCPCS: 73721

== ENCOUNTER → 2024-04-23 | Outpatient (CLI) | payer OTHER, SELFPAY | END | disposition home or self-care (01) | PROVIDERS: PCP Family Medicine; Visit Provider Podiatrist | DX: M77.52 Other enthesopathy of left foot and ankle (principal); M25.472 Effusion, left ankle | CPT/HCPCS: 87070; 87075; 87205 ==

== ENCOUNTER → 2024-05-07 | Outpatient (CLI) | payer OTHER, SELFPAY ==
[2024-05-07 22:09] LABS: RBC /Synovial Fluid 0.052 10^6/uL (0); Synovial Fld Mononuclear WBC # 0.067 10^3/ul; Synovial Fld Polynuclear WBC # 0.036 10^3/uL
[2024-05-07 22:55] LABS: AUTO B FLUID DILUENT BKGD CT WBC <0.1 RBC <0.01 (W<.1,R<.01); Appearance /Synovial Fluid Cloudy (CLEAR); CRYSTALS, BODY FLUID NO CRYSTALS SEEN; Color / Synovial Fluid Red (Pale Yellow); Source- Body Fluid SYNOVIAL
[2024-05-07 22:56] LABS: Body Fluid QC Type(s) BF3Q,BF4Q; Pathologist Review Will follow
[2024-05-07 23:23] LABS: Lymph 31 %; Monocyte /Synovial Fluid 26 %; Neutrophil 41 % (0-25); Other Cell /Synovial Fluid 2 %
[2024-05-08 14:48] LABS: Pathologist Comment Reviewed
== END | disposition home or self-care (01) ==
PROVIDERS: PCP Family Medicine; Visit Provider Podiatrist
DX: M77.51 Other enthesopathy of right foot and ankle (principal); M25.571 Pain in right ankle and joints of right foot
CPT/HCPCS: 89050; 89051; 89060

== ENCOUNTER → 2024-06-11 | Outpatient (CLI) | payer OTHER, SELFPAY ==
[2024-06-11 18:03] LABS: Free T3 2.3 pg/mL (2.18-3.98); T4 Free Direct 1.12 ng/dL (0.76-1.46); Thyroid Stim Hormone (TSH) 1.45 uIU/mL (0.358-3.74)
== END | disposition home or self-care (01) ==
LOC: MFPLAB 15:20
PROVIDERS: PCP Family Medicine; Visit Provider Family Medicine
DX: Z00.00 Encounter for general adult medical examination without abnormal findings (principal); E03.9 Hypothyroidism, unspecified
CPT/HCPCS: 36415; 83036; 84439; 84443; 84481

== ENCOUNTER → 2024-06-12 | Outpatient (CLI) | payer OTHER, SELFPAY ==
--- NOTE | 2024-06-12 10:18 | BI_ITS ---
MAMMOGRAPHY - BILATERAL SCREENING REASON FOR EXAM: Female, 58 years old. Routine annual screening examination. PERTINENT HISTORY: Non-contributory. TECHNIQUE: Digital bilateral breast víctor (3D mammographic acquisition) in the CC and MLO projections. 2-D mediolateral oblique (MLO) and craniocaudad (CC) views of both breasts were obtained. CAD: Full Field Digital Mammography with Computer Added Detection was performed. COMPARISON: Comparison is made with prior study dated June 09, 2023 and June 08, 2022. FINDINGS: Breast Composition: The breasts are heterogeneously dense, which may obscure small masses. There are no dominant masses or suspicious calcifications. Stable small benign-appearing bilateral axillary lymph nodes. No other significant abnormalities are identified. There has been no significant change since the prior study. BI/SCRN MAMM (CAD)W/VÍCTOR BILAT IMPRESSION: Stable bilateral screening mammogram. Yearly follow-up mammogram recommended. (A) ASSESSMENT CATEGORY: BIRADS Category 2: Benign. A letter regarding these results will be sent to the patient by the facility within 30 days. Approximately 10% of breast cancers are not detected by mammography. A normal mammogram should not delay biopsy of a clinically suspicious abnormality. [id number] Electronically Signed: Romario Beavers MD at 11:51 EDT ,
== END | disposition home or self-care (01) ==
LOC: OPBI 10:06
PROVIDERS: PCP Family Medicine; Referring Provider Family Medicine; Visit Provider Family Medicine
DX: Z12.31 Encounter for screening mammogram for malignant neoplasm of breast (principal)
CPT/HCPCS: 77063; 77067

== ENCOUNTER → 2024-09-15 | Outpatient (CLI) | payer OTHER, SELFPAY ==
--- OUTSIDE RECORDS SUMMARY | 2024-09-15 09:04 | XMS RPT_ITS | CCD ---
Author Organization [facility] Care Team Providers Care Construction Mgr Name Role Phone Tip LOZOYA, Nathan Richard Unavailable [phone] Allergies Allergy Classification Reported Allergen(s) Allergy Type Date of Onset Reaction(s) Facility (2 sources) hydroxychloroquine Drug Allergy 7 rash [facility] Work Phone: (2 sources) pregabalin Drug Allergy 7 N&V [facility] Work Phone: Medications Completed/Discontinued Medications Medication Drug Class(es) Dates Sig (Normalized) Sig (Original) nitrofurantoin, macrocrystals 25 mg / nitrofurantoin, monohydrate 75 mg oral capsule (2 sources) Start: 10-19-2017 MACROBID 100 MG CAPS 1 capsule twice daily NITROFURANTOIN MONOHYD MACRO [id number] Nathan LOZOYA LEVOTHYROXINE SODIUM TABS (2 sources) l-Thyroxine Start: 10-19-2017 SYNTHROID TABS as directed LEVOTHYROXINE SODIUM TABS [id number] Nathan LOZOYA Problems Problem Classification Problem Date Documented Da te Episodic/Chronic Genitourinary symptoms and ill-defined conditions (2 sources) Scalding pain on urination ; Translations: [Painful micturition, unspecified] Onset: 10-19-2017 10-19-2017 Episodic Urinary tract infections (2 sources) Urinary tract infectious disease; Translations: [Urinary tract infection, site not specified] Onset: 10-19-2017 10-19-2017 Episodic Results Test Name Value Interpretation Reference Range Facil ity Office Visit: UC: UTIon 09-22 Bilirubin Ql (U) Negative Invalid Interpretation Code [facility] Work Phone: blood in urine (hemoglobin) by dipstick 2+ Invalid Interpretation Code [facility] Work Phone: Documentation of current medications (procedure) Done Invalid Interpretation Code [facility] Work Phone: Fall risk assessment No Invalid Interpretation Code [facility] Work Phone: specific gravity, urine 1.015 Invalid Interpretation Code [facility] Work Phone: Tobacco smoking status NHIS Tobacco smoking status NHIS Invalid Interpretation Code [facility] Work Phone: Tobacco use HS Never smoker Invalid Interpretation Code [facility] Work Phone: Urine, appearance cloudy Invalid Interpretation Code [facility] Work Phone: Urine, color yellow Invalid Interpretation Code [facility] Work Phone: Urine, glucose presence Negative Invalid Interpretation Code [facility] Work Phone: Urine, ketones presence Negative Invalid Interpretation Code [facility] Work Phone: Urine, leukocyte esterase presence 2+ Invalid Interpretation Code [facility] Work Phone: Urine, nitrite presence Positive Invalid Interpretation Code [facility] Work Phone: Urine, pH 6.5 [pH] Invalid Interpretation Code [facility] Work Phone: Urine, protein Negative Invalid Interpretation Code [facility] Work Phone: Urine, urobilinogen presence Negative Invalid Interpretation Code [facility] Work Phone: Vital Signs Date Time Vital Sign Value Performing Clinician Faci lity 10-19-2017 17:09-0500 BMI (Body Mass Index) 31.14 kg/m2 Nathan LOZOYA [facility] Work Phone: 10-19-2017 17:09-0500 Body Temperature 98.2 [degF] Nathan LOZOYA [facility] Work Phone: 10-19-2017 17:09-0500 BP Diastolic 62 mm[Hg] Nathan LOZOYA [facility] Work Phone: 10-19-2017 17:09-0500 BP Systolic 110 mm[Hg] Nathan Whelan DARELL [facility] Work Phone: 10-19-2017 17:09-0500 Height 175.9 cm Nathan Whelan DARELL [facility] Work Phone: 10-19-2017 17:09-0500 Pulse (Heart Rate) 78 /min Nathan Tip LOZOYA [facility] Work Phone: 10-19-2017 17:09-0500 Respiratory Rate 13 /min Nathan Tip LOZOYA [facility] Work Phone: 10-19-2017 17:090500 Weight 96.34 kg Nathan Whelan DARELL [facility] Work Phone: Procedures Date Procedure Procedure Detail Performing Clinician Start: 10-19-2017 End: 10-19-2017 Urnls dip stick/tablet rgnt non-auto w/o micrscp Nathan LOZOYA Work Phone: Plan of Treatment Date Care Activity Detail Author Start: 10-19-2017 End: 10-19-2017 Appointment [facility] Work Phone: Additional Source Comments FOR [...] BE BASED ON THE PRIMARY CLINICAL RECORDS. [employer] [facility]. provides no warranty or guarantee of the accuracy or completeness of information in this document.
[2024-09-15 10:51] LABS: ALB/GLOB Ratio 1.2 RATIO (0.9-2.4); AST(SGOT) 22 U/L (15-37); Alanine Aminotransfer ALT/SGPT 33 U/L (13-56); Albumin, Serum 3.8 g/dL (3.2-5.0); Alkaline Phosphatase 88 U/L (45-117); Anion Gap 3 (5-15); BUN 14 mg/dL (7-18); BUN/Creat Ratio 15.6 RATIO (10-20); Calcium,Total 9.5 mg/dL (8.5-10.1); Chloride 108 mmol/L (98-107); Cholesterol 128 mg/dL (200); EST Glomerular Filtration Rate 68 mL/min (>60); Est Glom Filt Rate - Afr Amer 82 mL/min (>60); Globulin 3.3 g/dL (2.2-4.2); Glucose 136 mg/dL (74-106); High Density Lipoprotein 49 mg/dL; Potassium 4.1 mmol/L (3.5-5.1); Protein, Total 7.1 g/dL (6.4-8.2); Sodium Level 139 mmol/L (136-145); Triglycerides 109 mg/dL; Very Low Density Lipoprotein 22 mg/dL (5-40)
== END | disposition home or self-care (01) ==
LOC: LAB 09:02
PROVIDERS: PCP Family Medicine; Referring Provider Family Medicine; Visit Provider Family Medicine
DX: E03.9 Hypothyroidism, unspecified (principal); E11.9 Type 2 diabetes mellitus without complications
CPT/HCPCS: 36415; 80053; 80061; 84443

== ENCOUNTER → 2025-03-30 | Outpatient (CLI) | payer OTHER, SELFPAY ==
[2025-03-30 11:30] LABS: ALB/GLOB Ratio 1.6 RATIO (0.9-2.4); AST(SGOT) 20 U/L (<=31); Alanine Aminotransfer ALT/SGPT 16 U/L (<=34); Albumin, Serum 4.3 g/dL (3.4-4.8); Alkaline Phosphatase 91 U/L (35-104); Anion Gap 11 (5-15); BUN 15 mg/dL (4-19); BUN/Creat Ratio 18.7 RATIO (10-20); Calcium,Total 9.9 mg/dL (7.6-11.0); Carbon Dioxide 26.4 mmol/L (21.0-32.0); Chloride 103 mmol/L (98-108); Cholesterol 116 mg/dL (<=200); Creatinine, Serum 0.81 mg/dL (0.70-1.20); EST Glomerular Filtration Rate 82 (>60); Globulin 2.7 g/dL (2.2-4.2); Glucose 112 mg/dL (70-99); High Density Lipoprotein 46 mg/dL; Low Density Lipoprotein Calc. 53 mg/dL; Potassium 4.4 mmol/L (3.3-5.1); Sodium Level 140 mmol/L (133-145); Total Bilirubin 0.68 mg/dL (0.00-1.30); Triglycerides 84 mg/dL; Very Low Density Lipoprotein 17 mg/dL (5-40); cholesterol:hdl ratio screen 2.52
== END | disposition home or self-care (01) ==
LOC: LAB 10:24
PROVIDERS: PCP Family Medicine; Referring Provider Family Medicine; Visit Provider Family Medicine
DX: E11.9 Type 2 diabetes mellitus without complications (principal)
CPT/HCPCS: 36415; 80053; 80061

== ENCOUNTER → 2025-06-18 | Outpatient (CLI) | payer OTHER, SELFPAY ==
--- NOTE | 2025-06-18 16:19 | BI_ITS ---
EXAM: SCRN MAMM (CAD)W/VÍCTOR BILAT DATE: 06/18/2025 CLINICAL HISTORY: F, Age 59 y/o , SCREENING FOR BREAST CANCER TECHNIQUE: SCRN MAMM (CAD)W/VÍCTOR BILAT COMPARISON: Prior exam(s) were compared FINDINGS: TISSUE DENSITY: The breasts are heterogeneously dense, which may obscure small masses. Bilateral Breast Mammographic Findings: No suspicious masses, calcifications or other abnormalities are identified. BI/SCRN MAMM (CAD)W/VÍCTOR BILAT IMPRESSION: No mammographic evidence of malignancy in either breast OVERALL FINAL ASSESSMENT BI-RADS 1: NEGATIVE. RECOMMENDATION: Routine annual follow-up in 1 Year A letter with findings and recommendations will be mailed to the patient. Reading Location: [id number]
== END | disposition home or self-care (01) ==
LOC: OPBI 16:18
PROVIDERS: PCP Family Medicine; Referring Provider Family Medicine; Visit Provider Family Medicine
DX: Z12.31 Encounter for screening mammogram for malignant neoplasm of breast (principal)
CPT/HCPCS: 77063; 77067

== ENCOUNTER → 2025-09-14 | Outpatient (CLI) | payer OTHER, SELFPAY ==
--- OUTSIDE RECORDS SUMMARY | 2025-09-14 09:19 | XMS RPT_ITS | CCD ---
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 Yoel Herring Primary Care Provider Nevaeh, Dr. Diallo Referring Provider [phone] ROD Gibson Attending Provider Nevaeh, Dr. Diallo Primary Care Provider Nevaeh, Dr. Diallo Referring Provider ROD Gibson Attending Provider Nevaeh PALACIO, Dr. Diallo Primary Care Provider Nevaeh PALACIO, Dr. Diallo Attending Provider Nevaeh PALACIO, Dr. Diallo Referring Provider Yoel Herring Attending Unavailable Nevaeh, Yoel Referring Unavailable Herring, Yoel Primary Care Unavailable Nevaeh, Yoel Primary Care Unavailable Assessment, Health Risk Attending Unavaila ble Nevaeh, Yoel Attending Unavailable Herring, Yoel Referring Unavailable Herring, Yoel Primary Care Unavailable Herring, Yoel Attending Unavailable Herring, Yoel Referring Unavailable Herring, Yoel Primary Care Unavailable Assessment, Health Risk Attending Provider Unava ilable Allergies Allergy Classification Reported Allergen(s) Allergy Type Date of Onset Reaction(s) Facility (2 sources) hydroxychloroquine Drug Allergy 10-19-20 17 rash [facility] Work Phone: (2 sources) pregabalin Drug Allergy 10-19-20 17 N&V [facility] Work Phone: (9 sources) Hydroxychloroquine; Translations: [hydroxychloroquine sulfate] Drug Allergy 07-16-20 21 Rash [facility] (8 sources) pregabalin Drug Allergy 07-16-20 21 Nausea/Vom/Anastacia [facility] (9 sources) traMADol; Translations: [tramadol HCl] Drug Allergy 07-16-20 21 Nausea/Vom/Anastacia [facility] (1 source) pregabalin Drug Allergy 12-25-19 24 [facility] Repository Medications Current Medications Medication Drug Class(es) Dates Sig (Normalized) Sig (Original) acetaminophen 500 mg oral tablet (8 sources) Start: 04-02-2021 take 1 tablet by mouth every six hours as needed Acetaminophen (Tylenol Extra Strength) 500 mg tablet Active 500 mg PO EVERY 6 HOURS as needed April 02, 2021 12:00am ibuprofen 200 mg oral capsule (8 sources) Nonsteroidal Anti-inflammatory Drug Start: 04-02-2021 take 1 capsule by mouth every six hours as needed Ibuprofen 200 mg capsule Active 200 mg PO EVERY 6 HOURS as needed April 02, 2021 12:00am metaxalone 800 mg oral tablet (3 sources) Start: 12-25-2023 take 1 tablet by mouth three times daily as needed for pain Metaxalone 800 mg tablet Active 800 mg PO THREE TIMES A DAY as needed for muscle pain 15 5 0 December 25, 2023 1:00am metFORMIN hydrochloride 500 mg oral tablet (16 sources) Biguanide Start: 04-02-2021 take 2 tablets by mouth twice daily Metformin 500 mg tablet Active 1000 mg PO TWICE A DAY April 02, 2021 3:07pm Start: 04-02-2021 take 1000 mg by mout h twice daily Metformin Active 1000 MG PO TWICE A DAY April 02, 2021 2:07pm Start: 07-30-2019 End: 04-02-2021 take 1 tablet by mouth once daily Metformin 500 mg tablet Discontinued 500 mg PO DAILY July 30, 2019 12:00am April 02, 2021 3:08pm Completed/Discontinued Medications Medication Drug Class(es) Dates Sig (Normalized) Sig (Original) acetaminophen 325 mg / HYDROcodone bitartrate 5 mg oral tablet (8 sources) Opioid Agonist Start: 08-29-2019 End: 09-03-2019 Hydrocodone-Acetamino phen 1 TABLET tablet Discontinued 1 - 2 {tbl} PO EVERY 6 HOURS NEEDED as needed for Pain 40 5 0 August 29, 2019 September 02, 2019 12:00am September 03, 2019 12:10am Postoperative pain Other acute postprocedural pain TAKE RX Start: 08-29-2019 End: 09-03-2019 take 1 tablet by mouth every six hours as needed Hydrocodone-Acetaminophen Discontinued 1 - 2 TABLET PO EVERY 6 HOURS NEEDED 40 August 29, 2019 September 02, 2019 11:10pm TAKE RX acetaminophen 325 mg / oxyCODONE hydrochloride 5 mg oral tablet (8 sources) Opioid Agonist Start: 03-26-2020 End: 03-31-2020 take 1-2 tablets by mouth every six hours as needed for pain Oxycodone-Acetaminophen 1 TABLET tablet Discontinued 1 - 2 {tbl} PO EVERY 6 HOURS NEEDED as needed for Pain 09 04March 26, 2020 March 30, 2020 12:00am March 31, 2020 12:02am Postoperative pain Other acute postprocedural pain STOP ALL OTHER TYLENOL PRODUCTS Start: 03-26-2020 End: 03-31-2020 take 1-2 tablets by mouth every six hours as needed Oxycodone-Acetaminophen Discontinued 1 - 2 TABLET PO EVERY 6 HOURS NEEDED 09 04March 26, 2020 March 30, 2020 11:02pm STOP ALL OTHER TYLENOL PRODUCTS doxepin hydrochloride 100 mg oral capsule (8 sources) Tricyclic Antidepressant Start: 07-30-2019 End: 03-04-2020 take 1 capsule by mouth at bedtime Doxepin 100 mg capsule Discontinued 100 mg PO AT BEDTIME July 30, 2019 12:00am March 04, 2020 10:52am furosemide 20 mg oral tablet (16 sources) Loop Diuretic Start: 04-02-2021 End: 06-01-2021 take 1 tablet by mouth every week Furosemide (Lasix) 20 mg tablet Discontinued 20 mg PO .weekly April 02, 2021 3:07pm June 01, 2021 3:51pm Start: 07-30-2019 End: 04-02-2021 take 1 tablet by mouth once daily Furosemide (Lasix) 20 mg tablet Discontinued 20 mg PO DAILY July 30, 2019 12:00am April 02, 2021 3:08pm 2 ml sodium hyaluronate 10 mg/ml prefilled syringe (3 sources) Start: 06-15-2021 End: 06-15-2021 Euflexxa (sodium hyaluronate (viscosup)) Discontinued 10 MG INTRAARTIC ONCE 1 June 15, 2021 3:29pm June 15, 2021 3:58pm Start: 06-08-2021 End: 06-08-2021 Euflexxa (sodium hyaluronate (viscosup)) Discontinued 10 MG INTRAARTIC ONCE June 08, 2021 3:29pm June 08, 2021 3:40pm Start: 06-01-2021 End: 06-01-2021 Euflexxa (sodium hyaluronate (viscosup)) Discontinued 10 MG INTRAARTIC ONCE June 01, 2021 3:30pm June 01, 2021 4:09pm meloxicam 15 mg oral tablet (16 sources) Nonsteroidal Anti-inflammatory Drug Start: 09-15-2020 End: 04-02-2021 take 1 tablet by mouth once daily Meloxicam 15 mg tablet Discontinued 15 mg PO DAILY 30 September 15, 2020 12:00am April 02, 2021 3:07pm Start: 12-17-2019 End: 03-04-2020 take 1 tablet by mouth once daily Meloxicam 15 mg tablet Discontinued 15 mg PO DAILY 30 December 17, 2019 1:00am March 04, 2020 10:51am to be started after Medrol Juan R - stop other NSAIDS methylPREDNISolone 4 mg oral tablet (16 sources) Corticosteroid Start: 09-15-2020 End: 04-02-2021 take 1 tablet by mouth once Methylprednisolone (Medrol (Juan R)) 4 mg tablets,dose pack Discontinued 0 PO per package directions September 15, 2020 12:00am April 02, 2021 3:08pm PO PER PKG DIR Start: 12-17-2019 End: 03-04-2020 take 1 tablet by mouth once Methylprednisolone (Medrol (Juan R)) 4 mg tablets,dose pack Discontinued 0 PO per package directions December 17, 2019 1:00am March 04, 2020 10:51am PO PER PKG DIR naproxen 500 mg oral tablet (16 sources) Nonsteroidal Anti-inflammatory Drug Start: 11-29-2019 End: 12-17-2019 take 1 tablet by mouth twice daily as needed for pain Naproxen 500 mg tablet Discontinued 500 mg PO TWICE A DAY as needed for pain 60 30 November 29, 2019 1:00am December 28, 2019 1:00am December 17, 2019 5:09pm stop all other nsaids Start: 08-22-2019 End: 11-29-2019 take 1 tablet by mouth once daily Naproxen 500 MG tablet Discontinued 500 mg PO DAILY August 22, 2019 12:00am November 29, 2019 4:57pm nitrofurantoin, macrocrystals 25 mg / nitrofurantoin, monohydrate 75 mg oral capsule (2 sources) Start: 10-19-2017 MACROBID 100 MG CAPS 1 capsule twice daily NITROFURANTOIN MONOHYD MACRO [id number] Nathan LOZOYA nitrofurantoin, macrocrystals 25 mg / nitrofurantoin, monohydrate 75 mg oral capsule (16 sources) Nitrofuran Antibacterial Start: 03-29-2022 End: 04-05-2022 take 1 capsule by mouth every twelve hours at mealtime Nitrofurantoin Monohyd/M-Cryst 100 mg capsule Discontinued 1 NMA PO Q12H 14 7 0 March 29, 2022 5:15pm April 04, 2022 12:00am April 05, 2022 12:04am administer with a meal/food; swallow whole; do not open, crush, dissolve , or chew ondansetron 8 mg oral tablet (8 sources) Serotonin-3 Receptor Antagonist Start: 03-26-2020 End: 05-15-2020 take 1 tablet by mouth every eight hours as needed for nausea Ondansetron Hcl 8 MG tablet Discontinued 8 mg PO EVERY 8 HOURS NEEDED as needed for Nausea 20 0 March 26, 2020 12:00am May 15, 2020 3:36pm rivaroxaban 10 mg oral tablet (8 sources) Factor Xa Inhibitor Start: 07-07-2018 End: 07-30-2019 take 1 tablet by mouth once daily Rivaroxaban 10 MG tablet Discontinued 10 mg PO DAILY 7 0 July 07, 2018 12:00am July 30, 2019 3:05pm help prevent a blood clot LEVOTHYROXINE SODIUM TABS (10 sources) l-Thyroxine Start: 10-19-2017 SYNTHROID TABS as directed LEVOTHYROXINE SODIUM TABS [id number] Nathan LOZOYA Start: 07-04-2014 take 1 tablet by david th once daily Levothyroxine 88 MCG tablet Active 88 ug PO DAILY July 04, 2014 12:00am triamcinolone acetonide 40 mg/ml injectable suspension (4 sources) Corticosteroid Start: 04-02-2021 End: 04-02-2021 Kenalog (triamcinolone acetonide) 40 mg/mL suspension for injection Discontinued 80 MG INTRAARTIC ONCE 2 April 02, 2021 2:59pm April 02, 2021 3:44pm Start: 05-15-2020 End: 05-15-2020 Kenalog (triamcinolone aceto nide) 40 mg/mL suspension for injection Discontinued 40 MG INTRAARTIC ONCE 1 May 15, 2020 3:18pm May 15, 2020 3:45pm Start: 03-04-2020 End: 03-04-2020 Kenalog (triamcinolone aceto nide) 40 mg/mL suspension for injection Discontinued 80 MG INTRAARTIC ONCE 2 March 04, 2020 10:48am March 04, 2020 11:00am Start: 11-29-2019 End: 11-29-2019 Kenalog (triamcinolone aceto nide) 40 mg/mL suspension for injection Discontinued 80 MG INTRAARTIC ONCE 2 November 29, 2019 4:41pm November 29, 2019 4:57pm Problems Active Problems Problem Classification Problem Date Documented Date Episodic/Chronic Diabetes mellitus without complication (9 sources) Diabetes mellitus; Translations: [Type 2 diabetes mellitus without complications] Onset: 04-02-2025 07-16-2021 Chronic Immunizations and screening for infectious disease (8 sources) Patient encounter status; Translations: [Encounter for screening for COVID-19] 07-16-2021 Episodic Osteoarthritis (16 sources) Osteoarthritis of right knee joint; Translations: [Unilateral primary osteoarthritis, right knee] 04-02-2021 Chronic Other injuries and conditions due to external causes (3 sources) Muscle strain; Translations: [Other injury of unspecified body region, initial encounter] 12-25-2023 Episodic Other screening for suspected conditions (not mental disorders or infectious disease) (1 source) Encounter for screening mammogram for malignant neoplasm of breast; Translations: [Encounter for screening mammogram for malignant neoplasm of breast] Onset: 06-18-2025 Episodic Thyroid disorders (1 source) Hypothyroidism, unspecified; Translations: [Hypothyroidism, unspecified] Onset: 10-05-2024 Chronic Thyroid disorders (8 sources) Disorder of thyroid gland; Translations: [Disorder of thyroid, unspecified] 07-16-2021 Episodic Urinary tract infections (13 sources) Urinary tract infectious disease; Translations: [Cystitis] Onset: 10-19-2017 10-19-2017 Episodic Past or Other Problems Problem Classification Problem Date Documented Da te Episodic/Chronic Genitourinary symptoms and ill-defined conditions (2 sources) Scalding pain on urination ; Translations: [Painful micturition, unspecified] Onset: 10-19-2017 10-19-2017 Episodic Results Test Name Value Interpretation Reference Range Facility Breast imaging reportOrdered By: Hayde Garcia on 06-18-2025 Study report [facility] Imaging Services [address] [place], [place] [id number] SCRN MAMM (CAD)W/VÍCTOR BILAT MR#: [id number] Acct: [id number] Name: RISHI TREJO Rep #: [id number] : 1965 F 59 From: Howard Fermin MD PCP: Dr. Yoel Herring MD Status: [facility] Study:SCRN MAMM (CAD)W/VÍCTOR BILAT Date of Exa m: 06/18/25 Exam# [id number] Ordering Dr: Yoel Herring MD EXAM: SCRN MAMM (CAD)W/VÍCTOR BILAT DATE: 06/18/2025 CLINICAL HISTORY: F, Age 59 y/o , SCREENING FOR BREAST CANCER TECHNIQUE: SCRN MAMM (CAD)W/VÍCTOR BILAT COMPARISON: Prior exam(s) were compared FINDINGS: TISSUE DENSITY: The breasts are heterogeneously dense, which may obscure small masses. Bilateral Breast Mammographic Findings: No suspicious masses, calcifications or other abnormalities are identified. BI/SCRN MAMM (CAD)W/VÍCTOR BILAT IMPRESSION: No mammographic evidence of malignancy in either breast OVERALL FINAL ASSESSMENT BI-RADS 1: NEGATIVE. RECOMMENDATION: Routine annual follow-up in 1 Year A letter with findings and recommendations will be mailed to the patient. Reading Location: [id number] CC: Dr. Yoel Herring MD ~ Line Assigner: Signed [facility] SCRN MAMM (CAD)W/VÍCTOR BILATo n 06-18-2025 SCRN MAMM (CAD)W/VÍCTOR BILAT [facility] Imaging Services [address] [place] [address] SCRN MAMM (CAD)W/VÍCTOR BILAT MR#: [id number] Acct: [id number] Name: RISHI TREJO Rep #: [id number] : 1965 F 59 From: Hayde Matute i, MD PCP: Dr. Yoel Herring MD Status: [facility] Study: SCRN MAMM (CAD)W/VÍCTOR BILAT Date of Exam: 05/22 08/15 Exam# [id number] Ordering Dr: Yoel Herring MD EXAM: SCRN MAMM (CAD)W/VÍCTOR BILAT DATE: 06/18/2025 CLINICAL HISTORY: F, Age 59 y/o , SCREENING FOR BREAST CANCER TECHNIQUE: SCRN MAMM (CAD)W/VÍCTOR BILAT COMPARISON: Prior exam(s) were compared FINDINGS: TISSUE DENSITY: The breasts are heterogeneously dense, which may obscure small masses. Bilateral Breast Mammographic Findings: No suspicious masses, calcifications or other abnormalities are identified. BI/SCRN MAMM (CAD)W/VÍCTOR BILAT IMPRESSION: No mammographic evidence of malignancy in either breast OVERALL FINAL ASSESSMENT BI-RADS 1: NEGATIVE. RECOMMENDATION: Routine annual follow-up in 1 Year A letter with findings and recommendations will be mailed to the patient. Reading Location: [id number] CC: Dr. Yoel Herring MD Line Assigner: Signed Normal [facility] Calculated very low density lipoprotein (VLDL) cholesterol measurementOrdered By: HEALTH ASSESSMENT on 06-13-2025 Calculated very low density lipoprotein (VLDL) cholesterol measurement 21 mg/dL 5-40 [facility] Glucoseon 06-13-2025 Glucose [Mass/Vol] 115 mg/dL High 70-99 [facility] Comment on above: Performed By: #### L 500.4100, L501.0100 #### [facility] [address] [place], [place], [id number] LDL calc ser/plasOrdered By: HEALTH ASSESSMENT on 06-13-2025 Cholesterol in LDL [Mass/Vol] 64 mg/dL [facility] Comment on above: Pckkgrtpjn=078-374 m g/dL & Higher Bxmn=715 mg/dL or greater Lipid Profileon 06-13-2025 CHOL:HDL 2.67 Normal [facility] Comment on above: Performed By: #### L 500.4100, L501.0100 #### [facility] [address] [place], [address] Cholesterol [Mass/Vol] 136 mg/dL Normal <=200 [facility] Comment on above: Result Comment: Chol esterol level, Desirable <200 mg/dL Borderline high cholesterol 200-239 mg/dL High cholesterol >=240 mg/dL Recommendations of the NCEP Adult Treatment Panel for the following risk-cutoff thresholds for the [place] population. Performed By: #### L 500.4100, L501.0100 #### [facility] [address] [place], [address] Cholesterol in HDL [Mass/Vol] 51 mg/dL Normal [facility] Comment on above: Result Comment: Lory onal Cholesterol Education Program (NCEP) guidelines: <40 mg/dL: Low HDL-cholesterol (major risk factor for CHD) >= 60 mg/dL: High HDL-cholesterol (negative risk factor for CHD) HDL-cholesterol is affected by a number of factors, e.g. smoking, exercise, hormones, sex and age. Performed By: #### L 500.4100, L501.0100 #### [facility] [address] [place], [address] Cholesterol in LDL [Mass/Vol] 64 mg/dL Normal [facility] Comment on above: Result Comment: Bord ccktqv=107-124 mg/dL Higher Cbfb=121 mg/dL or greater Performed By: #### L 500.4100, L501.0100 #### [facility] [address] [place], [address] Cholesterol in VLDL [Mass/Vol] 21 mg/dL Normal 5-40 [facility] Comment on above: Performed By: #### L 500.4100, L501.0100 #### [facility] [address] [place], [place], [address] Triglyceride [Mass/Vol] 104 mg/dL Normal [facility] Comment on above: Result Comment: The drugs N-Acetylcysteine and Metamizole may falsely depress this assay. Normal range: <150 mg/dL Borderline High: 150-199 mg/dL High: 200-499 mg/dL Very High: >500 mg/dL Performed By: #### L 500.4100, L501.0100 #### [facility] [address] [place], [address] Screening total cholesterol/ high density lipoprotein (HDL) cholesterol ratioOrdered By: HEALTH ASSESSMENT on 06-13-2025 Cholesterol.total/Chol esterol in HDL [Mass ratio] 2.67 {ratio} [facility] Serum glucose measurement (m ass/volume)Ordered By: HEALTH ASSESSMENT on 06-13-2025 Glucose [Mass/Vol] 115 mg/dL High 70-99 [facility] Serum or plasma cholesterol in HDL measurement (mass/volume)Ordered By: HEALTH ASSESSMENT on 06-13-2025 Cholesterol in HDL [Mass/Vol] 51 mg/dL >40 [facility] Comment on above: National Cholesterol Education Program (NCEP) guidelines:<40 mg/dL: Low HDL-cholesterol (major risk factor for CHD)>= 60 mg/dL: High HDL-cholesterol (negative risk factor for CHD)HDL-cholesterol is affected by a number of factors, e.g. smoking, exercise, hormones, sex and age. Serum or plasma cholesterol measurement (mass/volume)Ordered By: HEALTH ASSESSMENT on 06-13-2025 Cholesterol [Mass/Vol] 136 mg/dL <201 [facility] Comment on above: Cholesterol level, D esirable <200 mg/dLBorderline high cholesterol 200-239 mg/dLHigh cholesterol >=240 mg/dLRecommendations of the NCEP Adult Treatment Panel for the following risk-cutoff thresholds for the [place] population. Triglycerides measurementOrd ered By: HEALTH ASSESSMENT on 06-13-2025 Triglyceride [Mass/Vol] 104 mg/dL <199 [facility] Comment on above: The drugs N-Acetylcy steine and Metamizole may falsely depress this assay. Normal range: <150 mg/dLBorderline High: 150-199 mg/dLHigh: 200-499 mg/dLVery High: >500 mg/dL Anion gap in Serum or Plasma Ordered By: Yoel Herring on 03-30-2025 Anion gap [Moles/Vol] 11 mmol/L -15 [facility] BUN/creatinine ratioOrdered By: Yoel Herring on 03-30-2025 Urea nitrogen/Creatinine [Mass ratio] 18.7 mg/mg - [facility] Bilirubin, totalOrdered By: Yoel Herring on 03-30-2025 Bilirubin [Mass/Vol] 0.68 mg/dL 0.00-1.30 [facility] Calculated very low density lipoprotein (VLDL) cholesterol measurementOrdered By: Yoel Herring on 03-30-2025 Calculated very low density lipoprotein (VLDL) cholesterol measurement 17 mg/dL [facility] Carbon dioxide, total [Moles /volume] in Central venous bloodOrdered By: Yoel Herring on 03-30-2025 CO2 [Moles/Vol] 26.4 mmol/L 21.0-32.0 [facility] Chloride assayOrdered By: Rod Herring on 03-30-2025 Chloride [Moles/Vol] 103 mmol/L 98-108 [facility] Comprehensive Metabolic Prof ilon 03-30-2025 Albumin [Mass/Vol] 4.3 g/dL Normal 3.4-4.8 [facility] Comment on above: Performed By: #### L 500.4050, L500.4100 #### [facility] [address] [place], [address] Albumin/Globulin [Mass ratio] 1.6 {ratio} Normal 0.9-2.4 [facility] Comment on above: Performed By: #### L 500.4050, L500.4100 #### [facility] [address] [place], [address] ALK PHOS 91 U/L Normal 35-104 [facility] Comment on above: Performed By: #### L 500.4050, L500.4100 #### [facility] [address] [place], [address] ALT [Catalytic activity/Vol] 16 U/L Normal <=34 [facility] Comment on above: Performed By: #### L 500.4050, L500.4100 #### [facility] [address] [place], [address] AST [Catalytic activity/Vol] 20 U/L Normal <=31 [facility] Comment on above: Performed By: #### L 500.4050, L500.4100 #### [facility] [address] [place], [address] Bilirubin [Mass/Vol] 0.68 mg/dL Normal 0.00-1.30 [facility] Comment on above: Performed By: #### L 500.4050, L500.4100 #### [facility] [address] [place], [address] BUN/CRE 18.7 RATIO Normal 10-20 [facility] Comment on above: Performed By: #### L 500.4050, L500.4100 #### [facility] [address] [place], [address] Calcium [Mass/Vol] 9.9 mg/dL Normal 7.6-11.0 [facility] Comment on above: Performed By: #### L 500.4050, L500.4100 #### [facility] [address] [place], [address] Chloride [Moles/Vol] 103 mmol/L Normal 98-108 [facility] Comment on above: Performed By: #### L 500.4050, L500.4100 #### [facility] [address] [place], [address] CO2 [Moles/Vol] 26.4 mmol/L Normal 21.0-32.0 [facility] Comment on above: Performed By: #### L 500.4050, L500.4100 #### [facility] [address] [place], [address] Creatinine [Mass/Vol] 0.81 mg/dL Normal 0.70-1.20 [facility] Comment on above: Performed By: #### L 500.4050, L500.4100 #### [facility] [address] [place], [address] GAP 11 Normal 5-15 [facility] Comment on above: Performed By: #### L 500.4050, L500.4100 #### [facility] [address] [place], [address] GFR/1.73 sq M.predicted among non-blacks MDRD (S/P/Bld) [Vol rate/Area] 82 mL/min/{1.73_m2} Normal >60 [facility] Comment on above: Result Comment: mL/m in/1.73m2 CKD-EPI Creatinine Equation (2020) Performed By: #### L 500.4050, L500.4100 #### [facility] [address] [place], [address] Globulin (S) [Mass/Vol] 2.7 g/dL Normal 2.2-4.2 [facility] Comment on above: Performed By: #### L 500.4050, L500.4100 #### [facility] [address] [place], [address] Glucose [Mass/Vol] 112 mg/dL High 70-99 [facility] Comment on above: Performed By: #### L 500.4050, L500.4100 #### [facility] [address] [place], [address] Potassium [Moles/Vol] 4.4 mmol/L Normal 3.3-5.1 [facility] Comment on above: Performed By: #### L 500.4050, L500.4100 #### [facility] [address] [place], [address] Sodium [Moles/Vol] 140 mmol/L Normal 133-145 [facility] Comment on above: Performed By: #### L 500.4050, L500.4100 #### [facility] [address] [place], [address] T PROT 7.0 g/dL Normal 5.9-8.4 [facility] Comment on above: Performed By: #### L 500.4050, L500.4100 #### [facility] [address] [place], [address] Urea nitrogen [Mass/Vol] 15 mg/dL Normal 4-19 [facility] Comment on above: Performed By: #### L 500.4050, L500.4100 #### [facility] [address] [place], [address] Glomerular filtration rate ( GFR) estimation/1.73 sq m using serum, plasma, or whole bOrdered By: Yoel Herring on 03-30-2025 GFR/1.73 sq M.predicted among non-blacks MDRD (S/P/Bld) [Vol rate/Area] 82 mL/min/{1.73_m2} >60 [facility] Comment on above: mL/min/1.73m2 CKD-EP I Creatinine Equation (2020) LDL calc ser/plasOrdered By: Yoel Herring on 03-30-2025 Cholesterol in LDL [Mass/Vol] 53 mg/dL [facility] Comment on above: Ykiymlxjdy=829-293 m g/dL & Higher Sqrf=408 mg/dL or greater Laboratory - Chemistry and C hemistry - challengeOrdered By: Yoel Herring on 03-30-2025 AST [Catalytic activity/Vol] 20 U/L <32 [facility] Lipid Profileon 03-30-2025 CHOL:HDL 2.52 Normal [facility] Comment on above: Performed By: #### L 500.4050, L500.4100 #### [facility] [address] [place], [address] Cholesterol [Mass/Vol] 116 mg/dL Normal <=200 [facility] Comment on above: Result Comment: Chol esterol level, Desirable <200 mg/dL Borderline high cholesterol 200-239 mg/dL High cholesterol >=240 mg/dL Recommendations of the NCEP Adult Treatment Panel for the following risk-cutoff thresholds for the [place] population. Performed By: #### L 500.4050, L500.4100 #### [facility] [address] [place], [address] Cholesterol in HDL [Mass/Vol] 46 mg/dL Normal [facility] Comment on above: Result Comment: Lory onal Cholesterol Education Program (NCEP) guidelines: <40 mg/dL: Low HDL-cholesterol (major risk factor for CHD) >= 60 mg/dL: High HDL-cholesterol (negative risk factor for CHD) HDL-cholesterol is affected by a number of factors, e.g. smoking, exercise, hormones, sex and age. Performed By: #### L 500.4050, L500.4100 #### [facility] [address] [place], [address] Cholesterol in LDL [Mass/Vol] 53 mg/dL Normal [facility] Comment on above: Result Comment: Bord hmeduk=860-567 mg/dL Higher Iuop=930 mg/dL or greater Performed By: #### L 500.4050, L500.4100 #### [facility] [address] [place], [address] Cholesterol in VLDL [Mass/Vol] 17 mg/dL Normal 5-40 [facility] Comment on above: Performed By: #### L 500.4050, L500.4100 #### [facility] [address] [place], [address] Triglyceride [Mass/Vol] 84 mg/dL Normal [facility] Comment on above: Result Comment: The drugs N-Acetylcysteine and Metamizole may falsely depress this assay. Normal range: <150 mg/dL Borderline High: 150-199 mg/dL High: 200-499 mg/dL Very High: >500 mg/dL Performed By: #### L 500.4050, L500.4100 #### [facility] [address] [place], [address] Potassium measurement (mass/ volume)Ordered By: Yoel Herring on 03-30-2025 Potassium (Unsp spec) [Mass/Vol] 4.4 mmol/L 3.3-5.1 [facility] Screening total cholesterol/ high density lipoprotein (HDL) cholesterol ratioOrdered By: Yoel Herring on 03-30-2025 Cholesterol.total/Chol esterol in HDL [Mass ratio] 2.52 {ratio} [facility] Serum creatinine measurement (mass/volume)Ordered By: Yoel Herring on 03-30-2025 Creatinine [Mass/Vol] 0.81 mg/dL 0.70-1.20 [facility] Serum globulin measurementOr dered By: Yoel Herring on 03-30-2025 Globulin (S) [Mass/Vol] 2.7 g/dL 2.2-4.2 [facility] Serum glucose measurement (m ass/volume)Ordered By: Yoel Herring on 03-30-2025 Glucose [Mass/Vol] 112 mg/dL High 70-99 [facility] Serum or plasma alanine stewart otransferase (ALT) measurementOrdered By: Yoel Herring on 03-30-2025 ALT [Catalytic activity/Vol] 16 U/L <35 [facility] Serum or plasma albumin maeve urement (mass/volume)Ordered By: Yoel Herring on 03-30-2025 Albumin [Mass/Vol] 4.3 g/dL 3.4-4.8 [facility] Serum or plasma albumin/glob ulin mass ratioOrdered By: Yoel Herring on 03-30-2025 Albumin/Globulin [Mass ratio] 1.6 {ratio} 0.9-2.4 [facility] Serum or plasma alkaline brittani sphatase measurementOrdered By: Yoel Herring on 03-30-2025 ALP [Catalytic activity/Vol] 91 U/L 35-104 [facility] Serum or plasma calcium maeve urement (mass/volume)Ordered By: Yoel Herring on 03-30-2025 Calcium [Mass/Vol] 9.9 mg/dL 7.6-11.0 [facility] Serum or plasma cholesterol in HDL measurement (mass/volume)Ordered By: Yoel Herring on 03-30-2025 Cholesterol in HDL [Mass/Vol] 46 mg/dL >40 [facility] Comment on above: National Cholesterol Education Program (NCEP) guidelines:<40 mg/dL: Low HDL-cholesterol (major risk factor for CHD)>= 60 mg/dL: High HDL-cholesterol (negative risk factor for CHD)HDL-cholesterol is affected by a number of factors, e.g. smoking, exercise, hormones, sex and age. Serum or plasma cholesterol measurement (mass/volume)Ordered By: Yoel Herring on 03-30-2025 Cholesterol [Mass/Vol] 116 mg/dL <201 [facility] Comment on above: Cholesterol level, D esirable <200 mg/dLBorderline high cholesterol 200-239 mg/dLHigh cholesterol >=240 mg/dLRecommendations of the NCEP Adult Treatment Panel for the following risk-cutoff thresholds for the [place] population. Serum or plasma urea nitroge n measurement (mass/volume)Ordered By: Yoel Herring on 03-30-2025 Urea nitrogen [Mass/Vol] 15 mg/dL 4-19 [facility] Sodium levelOrdered By: Yoel Herring on 03-30-2025 Sodium [Moles/Vol] 140 mmol/L 133-145 [facility] Total proteinOrdered By: Eva Herring on 03-30-2025 Protein [Mass/Vol] 7.0 g/dL 5.9-8.4 [facility] Triglycerides measurementOrd ered By: Yoel Herring on 03-30-2025 Triglyceride [Mass/Vol] 84 mg/dL <199 [facility] Comment on above: The drugs N-Acetylcy steine and Metamizole may falsely depress this assay. Normal range: <150 mg/dLBorderline High: 150-199 mg/dLHigh: 200-499 mg/dLVery High: >500 mg/dL Comprehensive Metabolic Prof ilon 09-15-2024 Albumin [Mass/Vol] 3.8 g/dL Normal 3.2-5.0 [facility] Comment on above: Performed By: #### L 500.4050, L500.4100, L501.9520 #### [facility] [address] [place], [address] Albumin/Globulin [Mass ratio] 1.2 {ratio} Normal 0.9-2.4 [facility] Comment on above: Performed By: #### L 500.4050, L500.4100, [id number] #### [facility] [address] [place], [address] ALK P 88 U/L Normal 45-117 [facility] Comment on above: Performed By: #### L 500.4050, L500.4100, [id number] #### [facility] [address] [place], [address] ALT [Catalytic activity/Vol] 33 U/L Normal 13-56 [facility] Comment on above: Performed By: #### L 500.4050, L500.4100, [id number] #### [facility] [address] [place], [address] AST [Catalytic activity/Vol] 22 U/L Normal 15-37 [facility] Comment on above: Performed By: #### L 500.4050, L500.4100, [id number] #### [facility] [address] [place], [address] Bilirubin [Mass/Vol] 0.60 mg/dL Normal 0.20-1.00 [facility] Comment on above: Result Comment: For patients on eltrombopag therapy, use of Dimension [place] TBIL is not recommended. Performed By: #### L 500.4050, L500.4100, [id number] #### [facility] [address] [place], [address] BUN/CRE 15.6 RATIO Normal 10-20 [facility] Comment on above: Performed By: #### L 500.4050, L500.4100, [id number] #### [facility] [address] [place], [address] CA,Total 9.5 mg/dL Normal 8.5-10.1 [facility] Comment on above: Performed By: #### L 500.4050, L500.4100, [id number] #### [facility] [address] [place], [address] Chloride [Moles/Vol] 108 mmol/L High 98-107 [facility] Comment on above: Performed By: #### L 500.4050, L500.4100, [id number] #### [facility] [address] [place], [address] CO2 [Moles/Vol] 29.0 mmol/L Normal 21.0-32.0 [facility] Comment on above: Performed By: #### L 500.4050, L500.4100, [id number] #### [facility] [address] [place], [address] Creatinine [Mass/Vol] 0.90 mg/dL Normal 0.55-1.02 [facility] Comment on above: Result Comment: The validity of the calculated GFR GFRAA in patients over 70 years has not been determined. Clinical correlation is essential. Performed By: #### L 500.4050, L500.4100, [id number] #### [facility] [address] [place], [address] EST GFR - AA 82 mL/min Normal >60 [facility] Comment on above: Result Comment: Afri can [place] GFR Calc Performed By: #### L 500.4050, L500.4100, [id number] #### [facility] [address] [place], [address] GAP 3 Low 5-15 [facility] Comment on above: Performed By: #### L 500.4050, L500.4100, [id number] #### [facility] [address] [place], [address] GFR/1.73 sq M.predicted among non-blacks MDRD (S/P/Bld) [Vol rate/Area] 68 mL/min/{1.73_m2} Normal >60 [facility] Comment on above: Result Comment: Non- GFR Calc Performed By: #### L 500.4050, L500.4100, [id number] #### [facility] [address] [place], [address] Globulin (S) [Mass/Vol] 3.3 g/dL Normal 2.2-4.2 [facility] Comment on above: Performed By: #### L 500.4050, L500.4100, [id number] #### [facility] [address] [place], [address] Glucose [Mass/Vol] 136 mg/dL High 74-106 [facility] Comment on above: Result Comment: Fast ing Glucose result greater than or equal to 126 mg/dL suggests DIABETES MELLITUS per A.D.A. criteria. Performed By: #### L 500.4050, L500.4100, [id number] #### [facility] [address] [place], [address] Potassium [Moles/Vol] 4.1 mmol/L Normal 3.5-5.1 [facility] Comment on above: Performed By: #### L 500.4050, L500.4100, [id number] #### [facility] [address] [place], [address] Sodium [Moles/Vol] 139 mmol/L Normal 136-145 [facility] Comment on above: Performed By: #### L 500.4050, L500.4100, [id number] #### [facility] [address] [place], [address] T PROT 7.1 g/dL Normal 6.4-8.2 [facility] Comment on above: Performed By: #### L 500.4050, L500.4100, [id number] #### [facility] [address] [place], [address] Urea nitrogen [Mass/Vol] 14 mg/dL Normal 7-18 [facility] Comment on above: Performed By: #### L 500.4050, L500.4100, [id number] #### [facility] [address] [place], [address] Lipid Profileon 09-15-2024 Cholesterol [Mass/Vol] 128 mg/dL Normal 200 [facility] Comment on above: Result Comment: <200 mg/dL Desirable 200-240 mg/dL Borderline >240 mg/dL High Risk Performed By: #### L 500.4050, L500.4100, [id number] #### [facility] [address] [place], [address] Cholesterol in HDL [Mass/Vol] 49 mg/dL Normal [facility] Comment on above: Result Comment: The drugs N-Acetylcysteine and Metamizole may falsely depress this assay. Reference Range HDL <40 mg/dL Low HDL Cholesterol HDL >or= 60 mg/dL High HDL Cholesterol Performed By: #### L 500.4050, L500.4100, [id number] #### [facility] [address] [place], [address] Cholesterol in LDL [Mass/Vol] 57 mg/dL Normal 0-130 [facility] Comment on above: Performed By: #### L 500.4050, L500.4100, [id number] #### [facility] [address] [place], [address] Cholesterol in VLDL [Mass/Vol] 22 mg/dL Normal 5-40 [facility] Comment on above: Performed By: #### L 500.4050, L500.4100, [id number] #### [facility] [address] [place], [address] Triglyceride [Mass/Vol] 109 mg/dL Normal [facility] Comment on above: Result Comment: The drugs N-Acetylcysteine and Metamizole may falsely depress this assay. Serum Triglycerides Reference Interval Normal <150 mg/dL Borderline high 150 - 199 mg/dL High 200 - 499 mg/dL Very High > or = 500 mg/dL Performed By: #### L 500.4050, L500.4100, [id number] #### [facility] [address] [place], [address] Thyroid Stim Hormone (TSH)on 09-15-2024 TSH 1.200 uIU/mL Normal 0.358-3.740 [facility] Comment on above: Performed By: #### L 500.4050, L500.4100, [id number] #### [facility] [address] [place], [address] Basophil percentageOrdered B y: Yoel Herring on 05-13-2023 Chloride [Moles/Vol] 105 mmol/L 98-107 [facility] Cholesterol [Mass/Vol] 197 mg/dL <200 [facility] Comment on above: <200 mg/dL Desirable 200-240 mg/dL Borderline >240 mg/dL High Risk Glucose [Mass/Vol] 138 mg/dL 74-106 [facility] Comment on above: Fasting Glucose resu lt greater than or equal to 126 mg/dL suggests DIABETES MELLITUS per A.D.A. criteria. Potassium [Moles/Vol] 4.2 mmol/L 3.5-5.1 [facility] Sodium [Moles/Vol] 139 mmol/L 136-145 [facility] Triglyceride [Mass/Vol] 142 mg/dL <199 [facility] Comment on above: The drugs N-Acetylcy steine and Metamizole may falsely depress this assay.Serum Triglycerides Reference Interval Normal <150 mg/dL Borderline high 150 - 199 mg/dL High 200 - 499 mg/dL Very High > or = 500 mg/dL Laboratory - Chemistry and C hemistry - challengeOrdered By: Yoel Herring on 05-13-2023 CO2 [Moles/Vol] 30.0 mmol/L 21.0-32.0 [facility] Urea nitrogen/Creatinine [Mass ratio] 14.3 mg/mg 10-20 [facility] No Panel InformationOrdered By: Yoel Herring on 05-13-2023 Estimated GFR (MDRD) Amer 75 mL/min >60 [facility] Comment on above: GFR Calc Estimated GFR (MDRD) Non-Af Amer 62 mL/min >60 [facility] Comment on above: Non- GFR Calc Serum or plasma calcium maeve urement (mass/volume)Ordered By: Yoel Herring on 05-13-2023 Calcium [Mass/Vol] 9.5 mg/dL 8.5-10.1 [facility] Serum or plasma cholesterol in HDL measurement (mass/volume)Ordered By: Yoel Herring on 05-13-2023 Cholesterol in HDL [Mass/Vol] 42 mg/dL >40 [facility] Comment on above: The drugs N-Acetylcy steine and Metamizole may falsely depress this assay. Reference Range HDL <40 mg/dL Low HDL Cholesterol HDL >or= 60 mg/dL High HDL Cholesterol Serum or plasma cholesterol in VLDL measurement (mass/volume)Ordered By: Yoel Herring on 05-13-2023 Cholesterol in VLDL [Mass/Vol] 28 mg/dL 5-40 [facility] Serum or plasma creatinine m easurement (mass/volume)Ordered By: Yoel Herring on 05-13-2023 Creatinine [Mass/Vol] 0.98 mg/dL 0.55-1.02 [facility] Comment on above: The validity of the calculated GFR & GFRAA in patients over 70 years has not been determined. Clinical correlation is essential. Serum or plasma low density lipoprotein (LDL) cholesterol measurement (mass/volume)Ordered By: Yoel Herring on 05-13-2023 Cholesterol in LDL [Mass/Vol] 127 mg/dL 0-130 [facility] Serum or plasma urea nitroge n measurement (mass/volume)Ordered By: Yoel Herring on 05-13-2023 Urea nitrogen [Mass/Vol] 14 mg/dL 7-18 [facility] Thin prep Papanicolaou smear with manual screeningOrdered By: Yoel Herring on 05-13-2023 Thin prep Papanicolaou smear with manual screening 4 5-15 [facility] Whole blood hemoglobin A1c/t otal hemoglobin ratio (mass fraction)Ordered By: Yoel Herring on 05-13-2023 HbA1c (Bld) [Mass fraction] 6.7 % 3.8-5.6 [facility] Comment on above: Normal < 5.7 % Predi abetic 5.7 - 6.4 % Diabetic >or= 6.5 % Please note range changes. Basophil percentageOrdered B y: Dr. Herring on 12-10-2022 Chloride [Moles/Vol] 103 mmol/L 98-107 [facility] Cholesterol [Mass/Vol] 210 mg/dL <200 [facility] Comment on above: <200 mg/dL Desirable 200-240 mg/dL Borderline >240 mg/dL High Risk Glucose [Mass/Vol] 145 mg/dL 74-106 [facility] Comment on above: Fasting Glucose resu lt greater than or equal to 126 mg/dL suggests DIABETES MELLITUS per A.D.A. criteria. Potassium [Moles/Vol] 4.0 mmol/L 3.5-5.1 [facility] Sodium [Moles/Vol] 140 mmol/L 136-145 [facility] Triglyceride [Mass/Vol] 148 mg/dL <199 [facility] Comment on above: The drugs N-Acetylcy steine and Metamizole may falsely depress this assay.Serum Triglycerides Reference Interval Normal <150 mg/dL Borderline high 150 - 199 mg/dL High 200 - 499 mg/dL Very High > or = 500 mg/dL Laboratory - Chemistry and C hemistry - challengeOrdered By: Dr. Herring on 12-10-2022 CO2 [Moles/Vol] 32.0 mmol/L 21.0-32.0 [facility] Free T4 [Mass/Vol] 1.16 ng/dL 0.76-1.46 [facility] Urea nitrogen/Creatinine [Mass ratio] 15.4 mg/mg 10-20 [facility] No Panel InformationOrdered By: Dr. Herring on 12-10-2022 Estimated GFR (MDRD) Amer 81 mL/min >60 [facility] Comment on above: GFR Calc Estimated GFR (MDRD) Non-Af Amer 67 mL/min >60 [facility] Comment on above: Non- GFR Calc Free Triiodothyronine (T3) pg/dL 2.4 pg/mL 2.18-3.98 [facility] Thyroid Stimulating Hormone (TSH) 2.94 uIU/mL 0.358-3.74 [facility] Urine Microalbumin/Creatinin e Ratio 7.2 mg/g CRE <30 [facility] Serum or plasma calcium maeve urement (mass/volume)Ordered By: Dr. Herring on 12-10-2022 Calcium [Mass/Vol] 9.5 mg/dL 8.5-10.1 [facility] Serum or plasma cholesterol in HDL measurement (mass/volume)Ordered By: Dr. Herring on 12-10-2022 Cholesterol in HDL [Mass/Vol] 52 mg/dL >40 [facility] Comment on above: The drugs N-Acetylcy steine and Metamizole may falsely depress this assay. Reference Range HDL <40 mg/dL Low HDL Cholesterol HDL >or= 60 mg/dL High HDL Cholesterol Serum or plasma cholesterol in VLDL measurement (mass/volume)Ordered By: Dr. Herring on 12-10-2022 Cholesterol in VLDL [Mass/Vol] 30 mg/dL 5-40 [facility] Serum or plasma creatinine m easurement (mass/volume)Ordered By: Dr. Herring on 12-10-2022 Creatinine [Mass/Vol] 0.91 mg/dL 0.55-1.02 [facility] Comment on above: The validity of the calculated GFR & GFRAA in patients over 70 years has not been determined. Clinical correlation is essential. Serum or plasma low density lipoprotein (LDL) cholesterol measurement (mass/volume)Ordered By: Dr. Herring on 12-10-2022 Cholesterol in LDL [Mass/Vol] 128 mg/dL 0-130 [facility] Serum or plasma urea nitroge n measurement (mass/volume)Ordered By: Dr. Herring on 12-10-2022 Urea nitrogen [Mass/Vol] 14 mg/dL 7-18 [facility] Thin prep Papanicolaou smear with manual screeningOrdered By: Dr. Herring on 12-10-2022 Thin prep Papanicolaou smear with manual screening 5 5-15 [facility] Thin prep Papanicolaou smear with manual screening 10.9 mg/L NO RANGE EST. [facility] Urine creatinine measurement (mass/volume)Ordered By: Dr. Herring on 12-10-2022 Creatinine (U) [Mass/Vol] 152.00 mg/dL NO RANGE EST. [facility] Whole blood hemoglobin A1c/t otal hemoglobin ratio (mass fraction)on 06-08-2022 HbA1c (Bld) [Mass fraction] 6.3 % 3.8-5.6 [facility] Work Phone: Comment on above: Normal < 5.7 % Predi abetic 5.7 - 6.4 % Diabetic >or= 6.5 % Please note range changes. Basophil percentageon 2021 Cholesterol [Mass/Vol] 220 mg/dL <200 [facility] Work Phone: Comment on above: <200 mg/dL Desirable 200-240 mg/dL Borderline >240 mg/dL High Risk Glucose [Mass/Vol] 126 mg/dL 74-106 [facility] Work Phone: Comment on above: Fasting Glucose resu lt greater than or equal to 126 mg/dL suggests DIABETES MELLITUS per A.D.A. criteria. Triglyceride [Mass/Vol] 112 mg/dL <199 [facility] Work Phone: Comment on above: The drugs N-Acetylcy steine and Metamizole may falsely depress this assay.Serum Triglycerides Reference Interval Normal <150 mg/dL Borderline high 150 - 199 mg/dL High 200 - 499 mg/dL Very High > or = 500 mg/dL Serum or plasma cholesterol in HDL measurement (mass/volume)on 06-03-2022 Cholesterol in HDL [Mass/Vol] 53 mg/dL >40 [facility] Work Phone: Comment on above: The drugs N-Acetylcy steine and Metamizole may falsely depress this assay. Reference Range HDL <40 mg/dL Low HDL Cholesterol HDL >or= 60 mg/dL High HDL Cholesterol Serum or plasma cholesterol in VLDL measurement (mass/volume)on 06-03-2022 Cholesterol in VLDL [Mass/Vol] 22 mg/dL 5-40 [facility] Work Phone: Serum or plasma low density lipoprotein (LDL) cholesterol measurement (mass/volume)on 06-03-2022 Cholesterol in LDL [Mass/Vol] 145 mg/dL 0-130 [facility] Work Phone: Basophil percentageon 2021 Basophil percentage 50-100 SEEN /hpf 0-5 [facility] Work Phone: Bilirubin Test strip Ql (U)o n 03-29-2022 Bilirubin Ql (U) Negative Negative [facility] Work Phone: Culture, urineon 03-29-2022 Bacteria identified Cx Nom (U) Presumptive E. coli [facility] Work Phone: Ketones Test strip Ql (U)on 03-29-2022 Ketones Ql (U) Negative Negative [facility] Work Phone: Laboratory - Chemistry and C hemistry - challengeon 03-29-2022 Bilirubin Ql (U) Negative [facility] Work Phone: Glucose Ql (U) Negative [facility] Work Phone: Ketones Ql (U) Small (15+) [facility] Work Phone: pH (U) 7.0 [pH] [facility] Work Phone: Specific gravity (U) [Rel density] 1.015 [facility] Work Phone: Urobilinogen (U) [Mass/Vol] Negative [facility] Work Phone: Laboratory - Hematology and Cell countson 03-29-2022 Hemoglobin Ql (U) Hemolyzed [facility] Work Phone: Laboratory - Specimen inform ationon 03-29-2022 Clarity (U) Cloudy [facility] Work Phone: Color (U) YELLOW [facility] Work Phone: Laboratory - Urinalysison Nitrite Ql (U) Negative [facility] Work Phone: Protein Ql (U) 1+ [facility] Work Phone: Mucus LM Ql (Urine sed)on Mucus Ql (Urine sed) 0 SEEN /hpf [facility] Work Phone: Nitrite Test strip Ql (U)on 03-29-2022 Nitrite Ql (U) Negative Negative [facility] Work Phone: No Panel Informationon 03-29 Urine Leukocytes Positive [facility] Work Phone: Urine Non-Hemolyzed Blood Moderate [facility] Work Phone: Protein Test strip Ql (U)on 03-29-2022 Protein Ql (U) 100 mg/dl Negative [facility] Work Phone: Squamous epithelial cells de tection in urine sediment by light microscopyon 03-29-2022 Epithelial cells.squamous LM Ql (Urine sed) 0-5 SEEN /hpf 5-10 [facility] Work Phone: Urine blood detectionon 05-0 RBC Ql (U) 150 /ul Negative [facility] Work Phone: RBC Ql (U) 10-25 SEEN /hpf 0-5 [facility] Work Phone: Urine clarityon 03-29-2022 Clarity (U) Cloudy Clear [facility] Work Phone: Urine color determinationon 03-29-2022 Color (U) Yellow Yellow [facility] [facility] Work Phone: Urine glucose detectionon Glucose Ql (U) 1000 mg/dl Normal [facility] Work Phone: Urine leukocyte esterase det ection by dipstickon 03-29-2022 Leukocyte esterase Test strip Ql (U) 500 /ul Negative [facility] Work Phone: Urine pHon 03-29-2022 pH (U) 6.5 [pH] 5.0 - 8.0 [facility] Work Phone: Urine sediment bacteria coun t by microscopy (number/high power field)on 03-29-2022 Bacteria LM.HPF (Urine sed) [#/Area] 2 /[HPF] None Seen [facility] Work Phone: Urine specific gravity measu rementon 03-29-2022 Specific gravity (U) [Rel density] 1.015 1.002-1.030 [facility] Work Phone: Urobilinogen Auto test strip Ql (U)on 03-29-2022 Urobilinogen Ql (U) Normal mg/dl Normal [facility] Work Phone: Basophil percentageon 2021 Chloride [Moles/Vol] 107 mmol/L 98-107 [facility] Work Phone: Cholesterol [Mass/Vol] 180 mg/dL <200 [facility] Work Phone: Comment on above: <200 mg/dL Desirable 200-240 mg/dL Borderline >240 mg/dL High Risk Glucose [Mass/Vol] 113 mg/dL 74-106 [facility] Work Phone: Comment on above: Fasting Glucose resu lt from 100 to 125 mg/dL suggests IMPAIRED HOMEOSTASIS per A.D.A. criteria. Potassium [Moles/Vol] 4.1 mmol/L 3.5-5.1 [facility] Work Phone: Sodium [Moles/Vol] 141 mmol/L 136-145 [facility] Work Phone: Triglyceride [Mass/Vol] 105 mg/dL [facility] Work Phone: Comment on above: The drugs N-Acetylcy steine and Metamizole may falsely depress this assay.Serum Triglycerides Reference Interval Normal <150 mg/dL Borderline high 150 - 199 mg/dL High 200 - 499 mg/dL Very High > or = 500 mg/dL Laboratory - Chemistry and C hemistry - challengeon 01-19-2022 CO2 [Moles/Vol] 30.0 mmol/L 21.0-32.0 [facility] Work Phone: Free T4 [Mass/Vol] 1.06 ng/dL 0.76-1.46 [facility] Work Phone: Urea nitrogen/Creatinine [Mass ratio] 20.3 mg/mg 10-20 [facility] Work Phone: No Panel Informationon 01-19 Estimated GFR (MDRD) Amer 90 mL/min >60 [facility] Work Phone: Comment on above: GFR Calc Estimated GFR (MDRD) Non-Af Amer 74 mL/min >60 [facility] Work Phone: Comment on above: Non- GFR Calc Free Triiodothyronine (T3) pg/dL 2.4 pg/mL 2.18-3.98 [facility] Work Phone: Thyroid Stimulating Hormone (TSH) 2.21 uIU/mL 0.358-3.74 [facility] Work Phone: Serum or plasma calcium maeve urement (mass/volume)on 01-19-2022 Calcium [Mass/Vol] 9.3 mg/dL 8.5-10.1 [facility] Work Phone: Serum or plasma cholesterol in HDL measurement (mass/volume)on 01-19-2022 Cholesterol in HDL [Mass/Vol] 50 mg/dL [facility] Work Phone: Comment on above: The drugs N-Acetylcy steine and Metamizole may falsely depress this assay. Reference Range HDL <40 mg/dL Low HDL Cholesterol HDL >or= 60 mg/dL High HDL Cholesterol Serum or plasma cholesterol in VLDL measurement (mass/volume)on 01-19-2022 Cholesterol in VLDL [Mass/Vol] 21 mg/dL 5-40 [facility] Work Phone: Serum or plasma creatinine m easurement (mass/volume)on 01-19-2022 Creatinine [Mass/Vol] 0.84 mg/dL 0.55-1.02 [facility] Work Phone: Comment on above: The validity of the calculated GFR & GFRAA in patients over 70 years has not been determined. Clinical correlation is essential. Serum or plasma low density lipoprotein (LDL) cholesterol measurement (mass/volume)on 01-19-2022 Cholesterol in LDL [Mass/Vol] 109 mg/dL 0-130 [facility] Work Phone: Serum or plasma urea nitroge n measurement (mass/volume)on 01-19-2022 Urea nitrogen [Mass/Vol] 17 mg/dL 7-18 [facility] Work Phone: Thin prep Papanicolaou smear with manual screeningon 01-19-2022 Thin prep Papanicolaou smear with manual screening 4 5-15 [facility] Work Phone: Office Visit: UC: PJon 11-2 Bilirubin Ql (U) Negative Invalid Interpretation Code [facility] Work Phone: blood in urine (hemoglobin) by dipstick 2+ Invalid Interpretation Code [facility] Work Phone: Documentation of current medications (procedure) Done Invalid Interpretation Code [facility] Work Phone: Fall risk assessment No Invalid Interpretation Code [facility] Work Phone: specific gravity, urine 1.015 Invalid Interpretation Code [facility] Work Phone: Tobacco smoking status NHIS Tobacco smoking status NHIS Invalid Interpretation Code [facility] Work Phone: Tobacco use HS Never smoker Invalid Interpretation Code [facility] Work Phone: Urine, appearance cloudy Invalid Interpretation Code [facility] Work Phone: Urine, color yellow Invalid Interpretation Code [facility] Work Phone: Urine, glucose presence Negative Invalid Interpretation Code [facility] Work Phone: Urine, ketones presence Negative Invalid Interpretation Code [facility] Work Phone: Urine, leukocyte esterase presence 2+ Invalid Interpretation Code [facility] Work Phone: Urine, nitrite presence Positive Invalid Interpretation Code [facility] Work Phone: Urine, pH 6.5 [pH] Invalid Interpretation Code [facility] Work Phone: Urine, protein Negative Invalid Interpretation Code [facility] Work Phone: Urine, urobilinogen presence Negative Invalid Interpretation Code [facility] Work Phone: Culture, urine Bacteria identified Cx Nom (U) Presumptive E. coli [facility] Work Phone: Vital Signs Date Time Vital Sign Value Performing Clinician Faci sandovaly 12-25-2023 15:29-0500 Diastolic blood pressure 84 mm[Hg] [facility] 12-25-2023 15:29-0500 Heart rate 74 /min [facility] 12-25-2023 15:29-0500 Systolic blood pressure 163 mm[Hg] [facility] 12-25-2023 13:49-0500 Body height 177.8 cm [facility] 12-25-2023 13:49-0500 Body mass index (BMI) [Ratio] 30.1 kg/m2 [facility] 12-25-2023 13:49-0500 Body temperature 97.4 [degF] [facility] 12-25-2023 13:49-0500 Body weight 95.31 kg [facility] 12-25-2023 13:49-0500 Respiratory rate 16 /min [facility] 12-25-2023 13:49-0500 SaO2% (BldA) [Mass fraction] 99 % [facility] 03-29-2022 17:09-0400 Body temperature 98.4 [degF] Dr. Yoel Herring Work Phone: [facility] Work Phone: 03-29-2022 17:09-0400 Diastolic blood pressure 78 mm[Hg] Dr. Yoel Herring Work Phone: [facility] Work Phone: 03-29-2022 17:09-0400 Heart rate 76 /min Dr. Yoel Herring Work Phone: [facility] Work Phone: 03-29-2022 17:09-0400 Respiratory rate 14 /min Dr. Yoel Herring Work Phone: [facility] Work Phone: 03-29-2022 17:09-0400 SaO2% (BldA) [Mass fraction] 98 % Dr. Yoel Herring Work Phone: [facility] Work Phone: 03-29-2022 17:09-0400 Systolic blood pressure 138 mm[Hg] Dr. Yoel Herring Work Phone: [facility] Work Phone: 03-29-2022 17:09-0400 Body temperature 98.4 [degF] Dr. Yoel Herring Work Phone: [facility] Work Phone: 03-29-2022 17:09-0400 Diastolic blood pressure 78 mm[Hg] Dr. Yoel Herring Work Phone: [facility] Work Phone: 03-29-2022 17:09-0400 Heart rate 76 /min Dr. Yoel Herring Work Phone: [facility] Work Phone: 03-29-2022 17:09-0400 Respiratory rate 14 /min Dr. Yoel Herring Work Phone: [facility] Work Phone: 03-29-2022 17:09-0400 SaO2% (BldA) [Mass fraction] 98 % Dr. Yoel Herring Work Phone: [facility] Work Phone: 03-29-2022 17:09-0400 Systolic blood pressure 138 mm[Hg] Dr. Yoel Herring Work Phone: [facility] Work Phone: 01-15-2022 09:50-0500 Body height 177.[address] Yoel Herring Work Phone: [facility] Work Phone: 10-19-2017 17:09-0500 BMI (Body Mass Index) 31.14 kg/m2 Nathan LOZOYA [facility] Work Phone: 10-19-2017 17:09-0500 Body Temperature 98.2 [degF] Nathan LOZOYA [facility] Work Phone: 10-19-2017 17:09-0500 BP Diastolic 62 mm[Hg] Nathan LOZOYA [facility] Work Phone: 10-19-2017 17:09-0500 BP Systolic 110 mm[Hg] Nathan LOZYOA [facility] Work Phone: 10-19-2017 17:09-0500 Height 175.9 cm Nathan LOZOYA [facility] Work Phone: 10-19-2017 17:09-0500 Pulse (Heart Rate) 78 /min Nathan LOZOYA [facility] Work Phone: 10-19-2017 17:09-0500 Respiratory Rate 13 /min Nathan LOZOYA [facility] Work Phone: 10-19-2017 17:09-0500 Weight 96.34 kg Nathan LOZOYA [facility] Work Phone: Encounters Encounter Date Encounter Type Care Provider Facility Start: 06-18-2025 End: 06-18-[address] Yoel Herring MD -Outpatient Breast Imaging Work Phone: Start: 06-18-2025 End: 06-18-2025 ambulatory Yoel Herring Facility:[facility] Start: 06-13-2025 Registered Referred HEALTH RISK ASSE [facility] Work Phone: Start: 06-13-2025 ambulatory Yoel Herring Facility:[facility] Start: 03-30-2025 End: 03-30-[address] Yoel Herring MD Work Phone: [facility] Work Phone: Start: 03-30-2025 End: 03-30-[address] Yoel Herring MD -Laboratory Work Phone: Start: 03-30-2025 End: 03-30-2025 ambulatory Yoel Herring Facility:[facility] Start: 09-15-2024 End: 09-15-2024 ambulatory Yoel Herring Facility:[facility] Start: 12-25-2023 End: 12-25-2023 Emergency department patient visit [facility]Emergency Department Work Phone: Start: 05-13-2023 End: 05-13-2023 ambulatory [facility] Work Phone: Start: 05-13-2023 End: 05-13-2023 Patient encounter procedure [facility]-Laboratory, [place] Work Phone: Start: 12-10-2022 End: 12-10-2022 ambulatory [facility] Work Phone: Start: 12-10-2022 End: 12-10-2022 Patient encounter procedure [facility]Labor[facility] Start: 06-08-2022 End: 06-08-[address] Yoel Herring Work Phone: [facility]-Outpatient Bone Densitometry Start: 06-03-[address] Yoel cohen Work Phone: [facility] Start: 03-29-2022 End: 03-29-[address] Yoel Herring Work Phone: [facility]-Laboratory, Specimen Start: 03-29-2022 End: 03-29-[address] Yoel Herring Work Phone: [facility] Start: 01-19-2022 End: 01-19-[address] Yoel Herring Work Phone: [facility] Start: 01-15-2022 End: 01-15-[address] Yoel Herring Work Phone: [facility] Procedures Date Procedure Procedure Detail Performing Clinician Start: 06-18-2025 Screening mammography Pedro Herring MD Work Phone: Start: 06-08-2022 Dual energy X-ray absorptiometry Dr. Yoel Herring Work Phone: Start: 06-08-2022 Screening mammography Pedro Herring Work Phone: Start: 03-29-[address] Yoel Herring Work Phone: Start: 10-19-2017 End: 10-19-2017 Urnls dip stick/tablet rgnt non-auto w/o micrscp Nathan LOZOYA Work Phone: Urine culture Dr. Yoel diop Work Phone: Plan of Treatment Date Care Activity Detail Author Start: 12-25-2023 [facility] Start: 12-25-2023 Plain chest X-ray Chest 1 View (Portable) [facility] Start: 12-25-2023 XR Chest Single view [facility] Start: 10-19-2017 End: 10-19-2017 Appointment [facility] Work Phone: Patient Education Self-Care for Strains and Sprains [facility] Work Phone: Patient referral [facility] Work Phone: Immunizations Immunization Date Immunization Notes Care Provider Massimo kulkarni 10-13-2020 influenza, injectabl e, quadrivalent, preservative free [facility] 10-13-2020 influenza, seasonal, injectable Dr. Yoel Herring Work Phone: [facility] 10-15-2019 influenza, injectabl e, quadrivalent, preservative free [facility] 10-15-2019 influenza, seasonal, injectable Dr. Yoel Herring Work Phone: [facility] 2018 influenza, injectabl e, quadrivalent, preservative free [facility] 2018 influenza, seasonal, injectable Dr. Yoel Herring Work Phone: [facility] 08-17-2017 influenza, injectabl e, quadrivalent, preservative free [facility] 08-17-2017 influenza, seasonal, injectable Dr. Yoel Herring Work Phone: [facility] 08-19-2016 influenza, injectabl e, quadrivalent, preservative free [facility] 08-19-2016 influenza, seasonal, injectable Dr. Yoel Herring Work Phone: [facility] 11-24-2015 influenza, injectabl e, quadrivalent, preservative free [facility] 11-24-2015 influenza, seasonal, injectable Dr. Yoel Herring Work Phone: [facility] Payers Date Payer Category Payer Self-pay [id number] 2024 Unknown [id number] 2015 Unknown [id number] Self-pay [id number] Unknown [id number] Unknown [id number] Unknown [id number] Unknown [id number] Unknown [id number] Social History Date Type Detail Facility Start: 03-29-2022 End: 12-25-2023 Tobacco smoking status CAIS Unknown if ever smoked [facility] Start: 03-24-2020 Non-smoker [facility] Start: 1965 Sex Assigned At Female W [facility] Start: 12-25-2023 Tobacco smoking stat us CAIS Never smoked tobacco (finding) [facility] Medical Equipment Procedure Code Equipment Code Equipment Origin al Text Equipment Identifier Dates Arthroscopy, knee NEEDLE REV CRV DEL SYS FDA Start: 08-29-2019 Arthroscopy, knee NEEDLE REV CRV DEL SYS FDA Start: 08-29-2019 Arthroscopy, knee NEEDLE REV CRV DEL SYS FDA Start: 08-29-2019 Arthroscopy, knee NEEDLE REV CRV DEL SYS FDA Start: 08-29-2019 Arthroscopy, knee NEEDLE REV CRV DEL SYS FDA Start: 08-29-2019 Arthroscopy, knee NEEDLE REV CRV DEL SYS FDA Start: 08-29-2019 Arthroscopy, knee NEEDLE REV CRV DEL SYS FDA Start: 08-29-2019 Arthroscopy, knee NEEDLE REV CRV DEL SYS FDA Start: 08-29-2019 Arthroscopy, knee NEEDLE REV CRV DEL SYS FDA Start: 08-29-2019 Arthroscopy, knee NEEDLE REV CRV DEL SYS FDA Start: 08-29-2019 Arthroscopy, knee NEEDLE REV CRV DEL SYS FDA Start: 08-29-2019 Arthroscopy, knee NEEDLE REV CRV DEL SYS FDA Start: 08-29-2019 Arthroscopy, knee NEEDLE REV CRV DEL SYS FDA Start: 08-29-2019 Arthroscopy, knee NEEDLE REV CRV DEL SYS FDA Start: 08-29-2019 Arthroscopy, knee NEEDLE REV CRV DEL SYS FDA Start: 08-29-2019 Arthroscopy, knee NEEDLE REV CRV DEL SYS FDA Start: 08-29-2019 Arthroscopy, knee NEEDLE REV CRV DEL SYS FDA Start: 08-29-2019 Arthroscopy, knee NEEDLE REV CRV DEL SYS FDA Start: 08-29-2019 Arthroscopy, knee NEEDLE REV CRV DEL SYS FDA Start: 08-29-2019 Arthroscopy, knee NEEDLE REV CRV DEL SYS FDA Start: 08-29-2019 Arthroscopy, knee NEEDLE REV CRV DEL SYS FDA Start: 08-29-2019 Arthroscopy, knee NEEDLE REV CRV DEL SYS FDA Start: 08-29-2019 Arthroscopy, knee NEEDLE REV CRV DEL SYS FDA Start: 08-29-2019 Arthroscopy, knee NEEDLE REV CRV DEL SYS FDA Start: 08-29-2019 Evaluation note Note Date & Type Note Facility Evaluation note Diagnosis Onset Date Cystitis acute [facility] Work Phone: Evaluation note Note Date & Type Note Facility Evaluation note No assessment information availa ble [facility] Work Phone: Hospital Discharge instructions Note Date & Type Note Facility Hospital Discharge instructions Additional Instructions Follow-up with PCP and return for any worsening of your symptoms. [facility] Work Phone: Reason for referral (narrative) Note Date & Type Note Facility Reason for referral (narrative) No reason for referral information available [facility] Work Phone: Chief Complaint and Reason for Visit Chief Complaint PRE HIRE DRUG/PRC SA LTILLO CONCERN FOR UTI Reason for Visit Cystitis Chief Complaint CONCERN FOR UTI SCREENING/OSTEO Reason for Visit Cystitis Chief Complaint SHOULDER PAIN Chief Complaint Admit Date SCREENING June 18, 2025 4:09 pm Advance Directives Advance Directive Response Recorded Date/ Time Advance Directives No December 11:50am Living Will No January 15 11:50am Power of Check Processor No January 15, 2022 11:50am Advance Directive Response Recorded Date/ Time Advance Directives No December 10:50am Living Will No January 15 10:50am Power of Check Processor No January 15, 2022 10:50am Advance Directive Response Recorded Date/ Time Advance Directives No December 10:50am Living Will Yes December 25 1:48pm Power of Check Processor Yes December 25, 2023 1:48pm Name of Medical Power of Check Processor Román Trejo December 25, 2023 1:48pm Advance Directive Response Recorded Date/ Time Advance Directives No December 11:50am Summary Purpose Family History No Family History Records Found Additional Source Comments Goals (unrecognized section and content) Goals may be documented in a n alternate sectionGoals may be documented in an alternate sectionGoals may be documented in an alternate sectionGoals may be documented in an alternate sectionGoals may be documented in an alternate sectionGoals may be documented in an alternate sectionGoals may be documented in an alternate sectionGoals may be documented in an alternate section Care Teams (unrecognized sec tion and content) Team Status: Active Member Role Status Dates Dr. Yoel Herring MD Family Provider Active Dr. Yoel Herring MD Primary Care Provider Active Team Status: Inactive Member Role Status Dates Dr. Yoel Herring MD Primary Care Provi josé luis, Attending Provider, Referring Provider Active Team Status: Inactive Member Role Status Dates Dr. Yoel Herring MD Primary Care Provider Active Dr. Noreen Real DO Emergency Provider Active Team Status: Inactive Member Role Status Dates Dr. Yoel Herring MD Primary Care Provider Active Start: March 30, 2025 End: March 30, 2025 Dr. Yoel Herring MD Attending Provider Active Start: March 30, 2025 End: March 30, 2025 Dr. Yoel Herring MD Referring Provider Active Start: March 30, 2025 End: March 30, 2025 Team Status: Active Member Role/Relationship Status Dates Dr. Yoel Herring MD Primary Care Provider Active Team Status: Inactive Member Role/Relationship Status Dates Dr. Yoel Herring MD Primary Care Provider Active Start: March 30, 2025 End: March 30, 2025 Dr. Yoel Herring MD Attending Provider Active Start: March 30, 2025 End: March 30, 2025 Dr. Yoel Herring MD Referring Provider Active Start: March 30, 2025 End: March 30, 2025 Team Status: Active Member Role/Relationship Status Dates Dr. Yoel Herring MD Primary Care Provider Active Start: June 13, 2025 Health Risk Assessment Attending Provider Active Start: June 13, 2025 Team Status: Inactive Member Role/Relationship Status Dates Dr. Yoel Herring MD Primary Care Provider Active Start: June 18, 2025 End: June 18, 2025 Dr. Yoel Herring MD Attending Provider Active Start: June 18, 2025 End: June 18, 2025 Dr. Yoel Herring MD Referring Provider Active Start: June 18, 2025 End: June 18, 2025 INFORMATION SOURCE (unrecogn ized section and content) DATE CREATED AUTHOR 06/20/2025 [facility] FOR RECORDS PERTAINING TO PATIENTS WHO ARE [...] BE BASED ON THE PRIMARY CLINICAL RECORDS. [facility] [employer] [facility]. provides no warranty or guarantee of the accuracy or completeness of information in this document.
[2025-09-14 10:40] LABS: Free T3 2.9 pg/mL (2.18-3.98)
== END | disposition home or self-care (01) ==
LOC: LAB 09:15
PROVIDERS: PCP Family Medicine; Referring Provider Family Medicine; Visit Provider Family Medicine
DX: E03.9 Hypothyroidism, unspecified (principal); E11.9 Type 2 diabetes mellitus without complications
CPT/HCPCS: 36415; 83036; 84439; 84443; 84481